=== PATIENT | female | born 1965 | race Caucasian/White ===

== ENCOUNTER 2017-04-22 02:38 | Emergency (ER) | payer MEDICARE, MEDICAID ==
[~2017-04-22 02:38] MED LIST: ADDE20XR PO; DARU600 PO; EPZITAB4 PO; KLON2TAB PO; RITO100 PO; SERO100T PO; TRAM50 PO
[2017-04-22] MEDS ORDERED: SERO50TA PO (02:51)
[2017-04-22] MEDS ORDERED: CLON2TAB PO (02:51)
[2017-04-22 02:53] VITALS: BP 128/76; PULSE 99; RESP 19; TEMP 97.6; O2SAT 100
--- NOTE | 2017-04-22 03:11 | PD ---
HPI Chief Complaint: Psychiatric Symptoms Time Seen by Provider: 02:47 Travel History International Travel<30 days: No Contact w/Intl Traveler<30days: No Traveled to known affect area: No History of Present Illness HPI 52-year-old white female presents to emergency department requesting psychological evaluation for mental breakdown. Patient has a history of anxiety and is a patient of Dr. Anne. She states that she had an argument with another person in the apartment complex today. She states that she felt uncomfortable and left. She is feeling dehydrated and feels that she needs to have something to drink. She has some mild lower back pain. She denies any suicidal or homicidal ideation. She does not want to talk about the surrounding events. She states that she has not taken her medications recently. She states that she is weaning herself off her medicines because she does not like to take medications. She denies any toxic ingestions. No trauma. She denies any drugs. PFSH Past Medical History Anemia: Yes Arthritis: Yes Autoimmune Disease: Yes (HIV+) Blood Disorders: No Anxiety: Yes Cancer: No High Cholesterol: Yes Chest Pain: No Cerebrovascular Accident: No Diminished Hearing: No Endocrine: No Gastrointestinal Disorders: No Genitourinary: No Headaches: Yes Hepatitis: Yes (HEP C) Hypertension: Yes Implanted Vascular Access Dvce: Yes Musculoskeletal: Yes (CHRONIC NECK,LBP,R.ANKLE,L. ELBOWPAIN) Neurologic: Yes Psychiatric: Yes (SCHIZOPHRENIA) Reproductive: No Respiratory: No Migraines: Yes (SOMETIMES) Myocardial Infarction: No ?: Unknown Past Surgical History Body Medical Devices: PLATE IN RIGHT ANKLE Hysterectomy: Yes Social History Alcohol Use: No Tobacco Use: No Substance Use: No Allergies-Medications (Allergen,Severity, Reaction): Coded Allergies: No Known Allergies (Verified , 06/23/15) Reported Meds & Prescriptions Reported Meds & Active Scripts Active Reported Seroquel (Quetiapine Fumarate) 50 Mg Tab 50 Mg PO HS Clonazepam 2 Mg Tab 2 Mg PO BID Review of Systems General / Constitutional: No: Fever Eyes: No: Visual changes HENT: No: Headaches Cardiovascular: No: Chest Pain or Discomfort Respiratory: No: Shortness of Breath Gastrointestinal: No: Abdominal Pain Genitourinary: No: Dysuria Musculoskeletal: No: Pain Skin: No Rash Neurologic: No: Weakness Psychiatric: Positive: Anxiety, Mood Disorder, No: Depression, Suicidal Ideations, Disorder of Thought, Substance Abuse, Homicidal Ideation Endocrine: No: Polydipsia Hematologic/Lymphatic: No: Easy Bruising Physical Exam Narrative GENERAL: Well-nourished, well-developed patient. Patient is somewhat anxious. Patient claims that her dog that is attending her is her service dog for her anxiety. SKIN: Warm and dry. HEAD: Normocephalic and atraumatic. EYES: No scleral icterus. No injection or drainage. ENT: No nasal drainage noted. Mucous membranes pink. Airway patent. NECK: Supple, trachea midline. Moves head freely without obvious discomfort. CARDIOVASCULAR: Regular rate and rhythm without murmurs, gallops, or rubs. RESPIRATORY: Breath sounds equal bilaterally. No accessory muscle use. GASTROINTESTINAL: Abdomen soft, non-tender, nondistended. EXTREMITIES: No cyanosis or edema. BACK: Nontender without obvious deformity. No CVA tenderness. NEURO: Patient is alert and oriented. no sensorimotor deficits. Nonfocal. Normal speech. PSYCH: No delusions. No auditory or visual hallucinations. Data Data Last Documented VS Vital Signs Date Time Temp Pulse Resp B/P (MAP) Pulse Ox O2 Delivery O2 Flow Rate FiO2 04/22/17 05:27 98 18 154/91 (112) 98 Room Air 04/22/17 02:53 97.6 Orders Orders Complete Blood Count With Diff (04/22/17 02:49) Comprehensive Metabolic Panel (04/22/17 02:49) Psych Screen (04/22/17 02:49) Drug Screen, Random Urine (04/22/17 02:49) Alcohol (Ethanol) (04/22/17 02:49) Urinalysis - C+S If Indicated (04/22/17 03:31) Chest, Single Ap (04/22/17 03:31) Sodium Chlor 0.9% 1000 Ml Inj (Ns 1000 M (04/22/17 05:15) Lactic Acid (04/22/17 05:12) Blood Culture (04/22/17 06:30) Lorazepam Inj (Ativan Inj) (04/22/17 06:30) Complete Blood Count With Diff (04/22/17 06:57) Basic Metabolic Panel (Bmp) (04/22/17 06:57) Lactic Acid (04/22/17 06:57) Labs Laboratory Tests Test 04/22/17 03:00 04/22/17 03:50 04/22/17 05:15 White Blood Count 17.2 TH/MM3 Red Blood Count 4.46 MIL/MM3 Hemoglobin 16.1 GM/DL Hematocrit 45.2 % Mean Corpuscular Volume 101.3 FL Mean Corpuscular Hemoglobin 36.1 PG Mean Corpuscular Hemoglobin Concent 35.7 % Red Cell Distribution Width 12.1 % Platelet Count 302 TH/MM3 Mean Platelet Volume 8.6 FL Neutrophils (%) (Auto) 86.3 % Lymphocytes (%) (Auto) 4.3 % Monocytes (%) (Auto) 9.1 % Eosinophils (%) (Auto) 0.0 % Basophils (%) (Auto) 0.3 % Neutrophils # (Auto) 14.8 TH/MM3 Lymphocytes # (Auto) 0.7 TH/MM3 Monocytes # (Auto) 1.6 TH/MM3 Eosinophils # (Auto) 0.0 TH/MM3 Basophils # (Auto) 0.0 TH/MM3 CBC Comment DIFF FINAL Differential Comment Blood Urea Nitrogen 45 MG/DL Creatinine 1.84 MG/DL Random Glucose 141 MG/DL Total Protein 9.3 GM/DL Albumin 4.9 GM/DL Calcium Level 9.8 MG/DL Alkaline Phosphatase 67 U/L Aspartate Amino Transf (AST/SGOT) 53 U/L Alanine Aminotransferase (ALT/SGPT) 34 U/L Total Bilirubin 0.8 MG/DL Sodium Level 139 MEQ/L Potassium Level 4.5 MEQ/L Chloride Level 107 MEQ/L Carbon Dioxide Level 19.5 MEQ/L Anion Gap 13 MEQ/L Estimat Glomerular Filtration Rate 29 ML/MIN Ethyl Alcohol Level LESS THAN 3 MG/DL Urine Color YELLOW Urine Turbidity CLEAR Urine pH 6.0 Urine Specific [place] 1.023 Urine Protein 100 mg/dL Urine Glucose (UA) 70 mg/dL Urine Ketones 40 mg/dL Urine Occult Blood LARGE Urine Nitrite NEG Urine Bilirubin NEG Urine Urobilinogen LESS THAN 2.0 MG/DL Urine Leukocyte Esterase NEG Urine RBC 0-3 /hpf Urine WBC 3-5 /hpf Urine Squamous Epithelial Cells > 8 /hpf Urine Bacteria OCC /hpf Urine Hyaline Casts 0-2 /lpf Urine Granular Casts 0-2 /lpf Urine Coarse Granular Casts /lpf Urine White Blood Cell Casts 0-2 /lpf Microscopic Urinalysis Comment CULT NOT INDICATED Urine Opiates Screen NEG Urine Barbiturates Screen NEG Urine Amphetamines Screen NEG Urine Benzodiazepines Screen NEG Urine Cocaine Screen NEG Urine Cannabinoids Screen NEG Lactic Acid Level 1.9 mmol/L MDM Medical Decision Making Medical Screen Exam Complete: Yes Emergency Medical Condition: Yes Medical Record Reviewed: Yes Interpretation(s) CBC & BMP Diagram 04/22/17 03:00 Total Protein 9.3 H, Albumin 4.9, Calcium Level 9.8, Alkaline Phosphatase 67, Aspartate Amino Transf (AST/SGOT) 53 H, Alanine Aminotransferase (ALT/SGPT) 34, Total Bilirubin 0.8 Laboratory Tests Test 04/22/17 03:00 04/22/17 03:50 White Blood Count 17.2 TH/MM3 Red Blood Count 4.46 MIL/MM3 Hemoglobin 16.1 GM/DL Hematocrit 45.2 % Mean Corpuscular Volume 101.3 FL Mean Corpuscular Hemoglobin 36.1 PG Mean Corpuscular Hemoglobin Concent 35.7 % Red Cell Distribution Width 12.1 % Platelet Count 302 TH/MM3 Mean Platelet Volume 8.6 FL Neutrophils (%) (Auto) 86.3 % Lymphocytes (%) (Auto) 4.3 % Monocytes (%) (Auto) 9.1 % Eosinophils (%) (Auto) 0.0 % Basophils (%) (Auto) 0.3 % Neutrophils # (Auto) 14.8 TH/MM3 Lymphocytes # (Auto) 0.7 TH/MM3 Monocytes # (Auto) 1.6 TH/MM3 Eosinophils # (Auto) 0.0 TH/MM3 Basophils # (Auto) 0.0 TH/MM3 CBC Comment DIFF FINAL Differential Comment Blood Urea Nitrogen 45 MG/DL Creatinine 1.84 MG/DL Random Glucose 141 MG/DL Total Protein 9.3 GM/DL Albumin 4.9 GM/DL Calcium Level 9.8 MG/DL Alkaline Phosphatase 67 U/L Aspartate Amino Transf (AST/SGOT) 53 U/L Alanine Aminotransferase (ALT/SGPT) 34 U/L Total Bilirubin 0.8 MG/DL Sodium Level 139 MEQ/L Potassium Level 4.5 MEQ/L Chloride Level 107 MEQ/L Carbon Dioxide Level 19.5 MEQ/L Anion Gap 13 MEQ/L Estimat Glomerular Filtration Rate 29 ML/MIN Ethyl Alcohol Level LESS THAN 3 MG/DL Urine Color YELLOW Urine Turbidity CLEAR Urine pH 6.0 Urine Specific [place] 1.023 Urine Protein 100 mg/dL Urine Glucose (UA) 70 mg/dL Urine Ketones 40 mg/dL Urine Occult Blood LARGE Urine Nitrite NEG Urine Bilirubin NEG Urine Urobilinogen LESS THAN 2.0 MG/DL Urine Leukocyte Esterase NEG Urine RBC 0-3 /hpf Urine WBC 3-5 /hpf Urine Squamous Epithelial Cells > 8 /hpf Urine Bacteria OCC /hpf Urine Hyaline Casts 0-2 /lpf Urine Granular Casts 0-2 /lpf Urine Coarse Granular Casts /lpf Urine White Blood Cell Casts 0-2 /lpf Microscopic Urinalysis Comment CULT NOT INDICATED Urine Opiates Screen NEG Urine Barbiturates Screen NEG Urine Amphetamines Screen NEG Urine Benzodiazepines Screen NEG Urine Cocaine Screen NEG Urine Cannabinoids Screen NEG Differential Diagnosis MDM: High Differential diagnoses: Schizophrenia, schizoaffective disorder, bipolar, anxiety, depression, adjustment reaction, mood disorder NOS, ODD, depressive disorder NOS, dementia, dementia with agitation, psychosis NOS, substance induced mood disorder, DMDD, Asperger syndrome, infection,electrolyte abnormality, malingering. Narrative Course Mental health screening discussed with the patient. Psychiatric screen ordered. Patient is given a liter bolus of normal saline. Patient's laboratory tests have been reviewed. Patient appears to have chronic renal insufficiency which is mildly worsened. She has granular casts in her urine along with proteinuria. She has a somewhat decrease bicarbonate. We will check a venous lactate. Her anion gap is. Chest x-ray is clear. The case has been discussed with Dr. Magana who has asked to hold off on her admission and have her labs repeated. She states that if she still has a leukocytosis she would consider admitting the patient. She states that she does not feel comfortable admitting the patient solely on a single set of labs. Diagnosis Primary Impression: Medical clearance for psychiatric admission Juan Pack Apr 22, 2017 03:11
[2017-04-22 03:20] LABS: AUTOMATED NEUTROPHIL # 14.8 TH/MM3 (1.8-7.7); BASOPHIL % 0.3 % (0.0-2.0); HEMATOCRIT 45.2 % (35.0-46.0); HEMO FLAGS DIFF FINAL; LYMPH % 4.3 % (9.0-44.0); LYMPHOCYTE # 0.7 TH/MM3 (1.0-4.8); MEAN CELL VOLUME 101.3 FL (80.0-100.0); MEAN CORPUSCULAR HEMOGLOBIN 36.1 PG (27.0-34.0); MEAN CORPUSCULAR HGB CONC 35.7 % (32.0-36.0); MONO % 9.1 % (0.0-8.0); NEUT % 86.3 % (16.0-70.0); PLATELET COUNT 302 TH/MM3 (150-450); RED BLOOD COUNT 4.46 MIL/MM3 (4.00-5.30); RED CELL DISTRIBUTION WIDTH 12.1 % (11.6-17.2); WHITE BLOOD COUNT 17.2 TH/MM3 (4.0-11.0)
[2017-04-22 03:50] LABS: ALKALINE PHOSPHATASE 67 U/L (45-117); TOTAL BILIRUBIN ADULT 0.8 MG/DL (0.2-1.0)
[2017-04-22 04:06] LABS: BLOOD, URINE LARGE (NEG); GLUCOSE,URINE 70 mg/dL (NEG); KETONE, URINE 40 mg/dL (NEG); NITRITE,URINE NEG (NEG); URINE COLOR YELLOW (YELLW/STRAW)
[2017-04-22 04:06] LABS: ALT (GPT) 34 U/L (10-53); ANION GAP 13 MEQ/L (5-15); AST (GOT) 53 U/L (15-37); BICARBONATE 19.5 MEQ/L (21.0-32.0); BLOOD UREA NITROGEN 45 MG/DL (7-18); CHLORIDE 107 MEQ/L (98-107); GLOMERULAR FILTRATION RATE 29 ML/MIN (>89); SODIUM (NA) 139 MEQ/L (136-145)
[2017-04-22 04:08] LABS: ALCOHOL LESS THAN 3 MG/DL (0-5); POTASSIUM 4.5 MEQ/L (3.5-5.1)
[2017-04-22 04:42] LABS: BACTERIA, URINE OCC /hpf; GRANULAR CAST, URINE 0-2 /lpf; HYALINE CAST, URINE 0-2 /lpf (RARE); RBC, URINE 0-3 /hpf (0-3); SQUAMOUS EPITHELIAL CELL URINE > 8 /hpf (0-5); WHITE BLOOD CELL CAST, URINE 0-2 /lpf
[2017-04-22 04:43] LABS: COMMENT (UR) CULT NOT INDICATED; CULTURE IF INDICATED CULT NOT INDICATED
[2017-04-22] MEDS ORDERED: SODIUM CHLOR 0.9% 1000 ML INJ 1,000 ML IV ONE (05:15)
[2017-04-22 05:27] VITALS: BP 154/91; PULSE 98; RESP 18; O2SAT 98
--- NOTE | 2017-04-22 05:51 | RADRPT ---
EXAM DATE/TIME: 04/22/2017 03:36 [facility] COMPARISON: CHEST SINGLE AP, October 19, 2013, 15:19. INDICATIONS : Anxiety. Cough. MEDICAL HISTORY : None. SURGICAL HISTORY : None. ENCOUNTER: Initial ACUITY: 1 day PAIN SCORE: 0/10 LOCATION: Bilateral chest FINDINGS: A single view of the chest demonstrates the lungs to be symmetrically aerated without evidence of mas s, infiltrate or effusion. No evidence pneumothorax. The cardiomediastinal contours are unremarkabl e. Osseous structures are intact. CONCLUSION: The lungs are clear. Jose Daniel Martinez MD on April 22, 2017 at 5:49 Board Certified Radiologist. This report was verified electronically.
[2017-04-22] MEDS ORDERED: LORazepam 2 MG/ML VIAL IV PUSH ONE (06:30)
[2017-04-22 07:32] LABS: AUTOMATED NEUTROPHIL # 12.2 TH/MM3 (1.8-7.7); BASOPHIL # 0.1 TH/MM3 (0-0.2); BASOPHIL % 0.5 % (0.0-2.0); HEMATOCRIT 38.6 % (35.0-46.0); LYMPH % 8.4 % (9.0-44.0); LYMPHOCYTE # 1.3 TH/MM3 (1.0-4.8); MEAN CELL VOLUME 100.4 FL (80.0-100.0); MEAN CORPUSCULAR HEMOGLOBIN 35.9 PG (27.0-34.0); MEAN CORPUSCULAR HGB CONC 35.7 % (32.0-36.0); MONO % 13.1 % (0.0-8.0); PLATELET COUNT 221 TH/MM3 (150-450); RED BLOOD COUNT 3.84 MIL/MM3 (4.00-5.30); WHITE BLOOD COUNT 15.6 TH/MM3 (4.0-11.0)
[2017-04-22 07:34] LABS: HEMO FLAGS AUTO DIFF
[2017-04-22 08:13] LABS: BICARBONATE 20.2 MEQ/L (21.0-32.0); POTASSIUM 3.5 MEQ/L (3.5-5.1)
[2017-04-22 08:34] LABS: PLATELET ESTIMATE SMEAR NORMAL (NORMAL); PLATELET MORPHOLOGY NORMAL (NORMAL); SCAN/DIFF AUTO DIFF CONFIRMED
--- NOTE | 2017-04-22 09:01 | PD ---
Physical Exam Date Seen by Provider: Apr 22, 2017 Time Seen by Provider: 09:07 Narrative 52-year-old female patient presents emergency department for evaluation after having a "mental breakdown". Patient was signed out to me by previous provider. Initial labs showed leukocytosis that was nonspecific, chest x-ray clear and urine did not indicate a urinary tract infection. Patient was afebrile. She was complaining of feeling dehydrated and weak however had no other physiological complaints outside of psychiatric complaints. Patient is HIV positive and has not taken her medication recently. Data Data Last Documented VS Vital Signs Date Time Temp Pulse Resp B/P (MAP) Pulse Ox O2 Delivery O2 Flow Rate FiO2 04/22/17 05:27 98 18 154/91 (112) 98 Room Air 04/22/17 02:53 97.6 Orders Orders Complete Blood Count With Diff (04/22/17 02:49) Comprehensive Metabolic Panel (04/22/17 02:49) Psych Screen (04/22/17 02:49) Drug Screen, Random Urine (04/22/17 02:49) Alcohol (Ethanol) (04/22/17 02:49) Urinalysis - C+S If Indicated (04/22/17 03:31) Chest, Single Ap (04/22/17 03:31) Sodium Chlor 0.9% 1000 Ml Inj (Ns 1000 M (04/22/17 05:15) Lactic Acid (04/22/17 05:12) Blood Culture (04/22/17 06:30) Lorazepam Inj (Ativan Inj) (04/22/17 06:30) Complete Blood Count With Diff (04/22/17 06:57) Basic Metabolic Panel (Bmp) (04/22/17 06:57) Lactic Acid (04/22/17 06:57) Admit Order (Ed Use Only) (04/22/17 09:02) Labs Laboratory Tests Test 04/22/17 03:00 04/22/17 03:50 04/22/17 05:15 04/22/17 07:10 White Blood Count 17.2 TH/MM3 15.6 TH/MM3 Red Blood Count 4.46 MIL/MM3 3.84 MIL/MM3 Hemoglobin 16.1 GM/DL 13.8 GM/DL Hematocrit 45.2 % 38.6 % Mean Corpuscular Volume 101.3 FL 100.4 FL Mean Corpuscular Hemoglobin 36.1 PG 35.9 PG Mean Corpuscular Hemoglobin Concent 35.7 % 35.7 % Red Cell Distribution Width 12.1 % 12.0 % Platelet Count 302 TH/MM3 221 TH/MM3 Mean Platelet Volume 8.6 FL 8.7 FL Neutrophils (%) (Auto) 86.3 % 78.0 % Lymphocytes (%) (Auto) 4.3 % 8.4 % Monocytes (%) (Auto) 9.1 % 13.1 % Eosinophils (%) (Auto) 0.0 % 0.0 % Basophils (%) (Auto) 0.3 % 0.5 % Neutrophils # (Auto) 14.8 TH/MM3 12.2 TH/MM3 Lymphocytes # (Auto) 0.7 TH/MM3 1.3 TH/MM3 Monocytes # (Auto) 1.6 TH/MM3 2.0 TH/MM3 Eosinophils # (Auto) 0.0 TH/MM3 0.0 TH/MM3 Basophils # (Auto) 0.0 TH/MM3 0.1 TH/MM3 CBC Comment DIFF FINAL AUTO DIFF Differential Comment AUTO DIFF CONFIRMED Blood Urea Nitrogen 45 MG/DL 35 MG/DL Creatinine 1.84 MG/DL 1.33 MG/DL Random Glucose 141 MG/DL 103 MG/DL Total Protein 9.3 GM/DL Albumin 4.9 GM/DL Calcium Level 9.8 MG/DL 8.4 MG/DL Alkaline Phosphatase 67 U/L Aspartate Amino Transf (AST/SGOT) 53 U/L Alanine Aminotransferase (ALT/SGPT) 34 U/L Total Bilirubin 0.8 MG/DL Sodium Level 139 MEQ/L 140 MEQ/L Potassium Level 4.5 MEQ/L 3.5 MEQ/L Chloride Level 107 MEQ/L 110 MEQ/L Carbon Dioxide Level 19.5 MEQ/L 20.2 MEQ/L Anion Gap 13 MEQ/L 10 MEQ/L Estimat Glomerular Filtration Rate 29 ML/MIN 42 ML/MIN Ethyl Alcohol Level LESS THAN 3 MG/DL Urine Color YELLOW Urine Turbidity CLEAR Urine pH 6.0 Urine Specific [place] 1.023 Urine Protein 100 mg/dL Urine Glucose (UA) 70 mg/dL Urine Ketones 40 mg/dL Urine Occult Blood LARGE Urine Nitrite NEG Urine Bilirubin NEG Urine Urobilinogen LESS THAN 2.0 MG/DL Urine Leukocyte Esterase NEG Urine RBC 0-3 /hpf Urine WBC 3-5 /hpf Urine Squamous Epithelial Cells > 8 /hpf Urine Bacteria OCC /hpf Urine Hyaline Casts 0-2 /lpf Urine Granular Casts 0-2 /lpf Urine Coarse Granular Casts /lpf Urine White Blood Cell Casts 0-2 /lpf Microscopic Urinalysis Comment CULT NOT INDICATED Urine Opiates Screen NEG Urine Barbiturates Screen NEG Urine Amphetamines Screen NEG Urine Benzodiazepines Screen NEG Urine Cocaine Screen NEG Urine Cannabinoids Screen NEG Lactic Acid Level 1.9 mmol/L 1.2 mmol/L Platelet Estimate NORMAL Platelet Morphology Comment NORMAL MDM Supervised Visit with JHOAN: Yes Differential Diagnosis Differential diagnoses include but not limited to nonspecific leukocytosis, sepsis, noncompliance with HAART regimen, psych clearance Narrative Course 52-year-old female presented to the emergency department for evaluation of a mental breakdown and initial labs show leukocytosis. Patient is HIV positive and has been noncompliant with her HAART regimen. She has been off her medication for several months. Although the patient is afebrile the leukocytosis is concerning based on her medical history. Another set of labs were obtained which confirmed leukocytosis. Residents were paged for admission. Dr Cobos and Dr Arias came and evaluated patient and stated the patient was having acute psychosis while they were doing their evaluation. Patient was having hallucinations and delusions that somebody was in the room talking on cell phone. Recommended that the patient be admitted to medical psychiatric unit. Psychiatry is paged for admission. Dr. Cummins called back and accepted admission. Patient will be admitted to medical psychiatric unit. Laboratory Tests Test 04/22/17 03:00 04/22/17 03:50 04/22/17 05:15 04/22/17 07:10 White Blood Count 17.2 TH/MM3 15.6 TH/MM3 Red Blood Count 4.46 MIL/MM3 3.84 MIL/MM3 Hemoglobin 16.1 GM/DL 13.8 GM/DL Hematocrit 45.2 % 38.6 % Mean Corpuscular Volume 101.3 FL 100.4 FL Mean Corpuscular Hemoglobin 36.1 PG 35.9 PG Mean Corpuscular Hemoglobin Concent 35.7 % 35.7 % Red Cell Distribution Width 12.1 % 12.0 % Platelet Count 302 TH/MM3 221 TH/MM3 Mean Platelet Volume 8.6 FL 8.7 FL Neutrophils (%) (Auto) 86.3 % 78.0 % Lymphocytes (%) (Auto) 4.3 % 8.4 % Monocytes (%) (Auto) 9.1 % 13.1 % Eosinophils (%) (Auto) 0.0 % 0.0 % Basophils (%) (Auto) 0.3 % 0.5 % Neutrophils # (Auto) 14.8 TH/MM3 12.2 TH/MM3 Lymphocytes # (Auto) 0.7 TH/MM3 1.3 TH/MM3 Monocytes # (Auto) 1.6 TH/MM3 2.0 TH/MM3 Eosinophils # (Auto) 0.0 TH/MM3 0.0 TH/MM3 Basophils # (Auto) 0.0 TH/MM3 0.1 TH/MM3 CBC Comment DIFF FINAL AUTO DIFF Differential Comment AUTO DIFF CONFIRMED Blood Urea Nitrogen 45 MG/DL 35 MG/DL Creatinine 1.84 MG/DL 1.33 MG/DL Random Glucose 141 MG/DL 103 MG/DL Total Protein 9.3 GM/DL Albumin 4.9 GM/DL Calcium Level 9.8 MG/DL 8.4 MG/DL Alkaline Phosphatase 67 U/L Aspartate Amino Transf (AST/SGOT) 53 U/L Alanine Aminotransferase (ALT/SGPT) 34 U/L Total Bilirubin 0.8 MG/DL Sodium Level 139 MEQ/L 140 MEQ/L Potassium Level 4.5 MEQ/L 3.5 MEQ/L Chloride Level 107 MEQ/L 110 MEQ/L Carbon Dioxide Level 19.5 MEQ/L 20.2 MEQ/L Anion Gap 13 MEQ/L 10 MEQ/L Estimat Glomerular Filtration Rate 29 ML/MIN 42 ML/MIN Ethyl Alcohol Level LESS THAN 3 MG/DL Urine Color YELLOW Urine Turbidity CLEAR Urine pH 6.0 Urine Specific [place] 1.023 Urine Protein 100 mg/dL Urine Glucose (UA) 70 mg/dL Urine Ketones 40 mg/dL Urine Occult Blood LARGE Urine Nitrite NEG Urine Bilirubin NEG Urine Urobilinogen LESS THAN 2.0 MG/DL Urine Leukocyte Esterase NEG Urine RBC 0-3 /hpf Urine WBC 3-5 /hpf Urine Squamous Epithelial Cells > 8 /hpf Urine Bacteria OCC /hpf Urine Hyaline Casts 0-2 /lpf Urine Granular Casts 0-2 /lpf Urine Coarse Granular Casts /lpf Urine White Blood Cell Casts 0-2 /lpf Microscopic Urinalysis Comment CULT NOT INDICATED Urine Opiates Screen NEG Urine Barbiturates Screen NEG Urine Amphetamines Screen NEG Urine Benzodiazepines Screen NEG Urine Cocaine Screen NEG Urine Cannabinoids Screen NEG Lactic Acid Level 1.9 mmol/L 1.2 mmol/L Platelet Estimate NORMAL Platelet Morphology Comment NORMAL Diagnosis Primary Impression: Medical clearance for psychiatric admission Additional Impressions: Leukocytosis Qualified Codes: D72.829 - Elevated white blood cell count, unspecified HIV disease Shasta Walker Apr 22, 2017 09:01
--- NOTE | 2017-04-22 10:24 | PD ---
History of Present Illness Chief Complaint: Psychiatric Symptoms Time Seen by Provider: 09:45 Travel History International Travel<30 Days: No Contact w/Intl Traveler<30days: No Known affected area: No Legal Status Legal Status: Voluntary History of Present Illness: History of Present Illness HPI 52-year-old white female with reported history of anxiety disorder as well as multiple medical problems including HIV, Hep. C, who presents to emergency department on a voluntary basis requesting psychological evaluation for mental breakdown. She reports that she was having some problems with her neighbor and that she decided to leave her apartment "a couple of days ago" accompanied by her dog. She has also stopped taking all her medications including Klonopin, Seroquel and Adderall. She sates she last took them " a few days ago" but is unsure of the exact dates. Her toxicology is negative for any substances including benzos as well as amphetamines. Patient is seen with QUIANA Dent. She is alert, not fully oriented to the date, knows she is in the hospital. The patient does not appear internally stimulated.She does believe that her service dog can " apple picking supervisor spiritual forces". She is not manic. Reports that she has not slept in several days and has been on the streets. Not suicdal or homicidal. Poor judgement and not caring for herself. She reports that she feels anxious. PFSH Past Medical History Anemia: Yes Arthritis: Yes Autoimmune Disease: Yes (HIV+) Blood Disorders: No Anxiety: Yes High Cholesterol: Yes Diminished Hearing: No Headaches: Yes Hepatitis: Yes (HEP C+, PT STATES SHE HAS BEEN CURED) Hypertension: Yes Implanted Vascular Access Dvce: Yes Musculoskeletal: Yes (CHRONIC NECK,LBP,R.ANKLE,L. ELBOWPAIN) Neurologic: Yes Migraines: Yes (SOMETIMES) ?: Unknown Past Surgical History Body Medical Devices: PLATE IN RIGHT ANKLE Hysterectomy: Yes Psychiatric History Psychiatric History Hx Psychiatric Treatment: none. Lilian of Dr. grant machado History of Inpatient Treatment: No Guns or firearms in home: No Social History Hx Alcohol Use: No Hx Tobacco Use: No Hx Substance Use: No Substance Use Type: Nicotine/Cigarettes Other Substances Used: none only rx from the dr Mott of Substance Use Treatment: No Family Psychiatric History None reported. Allergies-Medications (Allergen,Severity, Reaction): Coded Allergies: No Known Allergies (Verified Allergy, Unknown, 04/22/17) Reported Meds & Prescriptions Reported Meds & Active Scripts Active Reported Seroquel (Quetiapine Fumarate) 50 Mg Tab 50 Mg PO HS Clonazepam 2 Mg Tab 2 Mg PO BID Mental Status Examination Appearance: Appropriate Consciousness: Alert, Somnolent Orientation: Person, Place, Situation Motor Activity: Normal gait Language: Adequate Fund of Knowledge: Adequate Attention and Concentration: Easily Distracted Memory: Impaired Mood: Anxious Affect: Blunt Thought Process & Associations: Loose associations Thought Content: Appropriate Hallucination Type: Visual (reported seeing a woman who was the devil) Delusion Type: None Suicidal Ideation: No Suicidal Plan: No Suicidal Intention: No Homicidal Ideation: No Homicidal Plan: No Homicidal Intention: No Insight: Poor Judgment: Impulsive MDM Medical Decision Making Medical Record Reviewed: Yes Assessment/Plan 52-year-old white female with reported history of anxiety disorder as well as multiple medical problems including HIV, Hep. C, who presents to emergency department on a voluntary basis requesting psychological evaluation for mental breakdown. She reports that she was having some problems with her neighbor and that she decided to leave her apartment "a couple of days ago" accompanied by her dog. She has also stopped taking all her medications including Klonopin, Seroquel and Adderall. She sates she last took them " a few days ago" but is unsure of the exact dates. Her toxicology is negative for any substances including benzos as well as amphetamines. The patient will be admitted to psychiatry for further evaluation, stabilization and to restart her psychiatric medications. She may be experiencing benzo withdrawal so she will be placed under a CIWA. Will obtain hospitalist consult to mange her multiple medical issues. Orders Orders Complete Blood Count With Diff (04/22/17 02:49) Comprehensive Metabolic Panel (04/22/17 02:49) Psych Screen (04/22/17 02:49) Drug Screen, Random Urine (04/22/17 02:49) Alcohol (Ethanol) (04/22/17 02:49) Urinalysis - C+S If Indicated (04/22/17 03:31) Chest, Single Ap (04/22/17 03:31) Sodium Chlor 0.9% 1000 Ml Inj (Ns 1000 M (04/22/17 05:15) Lactic Acid (04/22/17 05:12) Blood Culture (04/22/17 06:30) Lorazepam Inj (Ativan Inj) (04/22/17 06:30) Complete Blood Count With Diff (04/22/17 06:57) Basic Metabolic Panel (Bmp) (04/22/17 06:57) Lactic Acid (04/22/17 06:57) Admit Order (Ed Use Only) (04/22/17 09:02) Results Vital Signs Date Time Temp Pulse Resp B/P (MAP) Pulse Ox O2 Delivery O2 Flow Rate FiO2 04/22/17 05:27 98 18 154/91 (112) 98 Room Air 04/22/17 02:53 97.6 99 19 128/76 (93) 100 Room Air Laboratory Tests Test 04/22/17 03:00 04/22/17 03:50 04/22/17 05:15 04/22/17 07:10 White Blood Count 17.2 15.6 Red Blood Count 4.46 3.84 Hemoglobin 16.1 13.8 Hematocrit 45.2 38.6 Mean Corpuscular Volume 101.3 100.4 Mean Corpuscular Hemoglobin 36.1 35.9 Mean Corpuscular Hemoglobin Concent 35.7 35.7 Red Cell Distribution Width 12.1 12.0 Platelet Count 302 221 Mean Platelet Volume 8.6 8.7 Neutrophils (%) (Auto) 86.3 78.0 Lymphocytes (%) (Auto) 4.3 8.4 Monocytes (%) (Auto) 9.1 13.1 Eosinophils (%) (Auto) 0.0 0.0 Basophils (%) (Auto) 0.3 0.5 Neutrophils # (Auto) 14.8 12.2 Lymphocytes # (Auto) 0.7 1.3 Monocytes # (Auto) 1.6 2.0 Eosinophils # (Auto) 0.0 0.0 Basophils # (Auto) 0.0 0.1 CBC Comment DIFF FINAL AUTO DIFF Differential Comment AUTO DIFF CONFIRMED Blood Urea Nitrogen 45 35 Creatinine 1.84 1.33 Random Glucose 141 103 Total Protein 9.3 Albumin 4.9 Calcium Level 9.8 8.4 Alkaline Phosphatase 67 Aspartate Amino Transf (AST/SGOT) 53 Alanine Aminotransferase (ALT/SGPT) 34 Total Bilirubin 0.8 Sodium Level 139 140 Potassium Level 4.5 3.5 Chloride Level 107 110 Carbon Dioxide Level 19.5 20.2 Anion Gap 13 10 Estimat Glomerular Filtration Rate 29 42 Ethyl Alcohol Level LESS THAN 3 Urine Color YELLOW Urine Turbidity CLEAR Urine pH 6.0 Urine Specific [place] 1.023 Urine Protein 100 Urine Glucose (UA) 70 Urine Ketones 40 Urine Occult Blood LARGE Urine Nitrite NEG Urine Bilirubin NEG Urine Urobilinogen LESS THAN 2.0 Urine Leukocyte Esterase NEG Urine RBC 0-3 Urine WBC 3-5 Urine Squamous Epithelial Cells > 8 Urine Bacteria OCC Urine Hyaline Casts 0-2 Urine Granular Casts 0-2 Urine Coarse Granular Casts Urine White Blood Cell Casts 0-2 Microscopic Urinalysis Comment CULT NOT INDICATED Urine Opiates Screen NEG Urine Barbiturates Screen NEG Urine Amphetamines Screen NEG Urine Benzodiazepines Screen NEG Urine Cocaine Screen NEG Urine Cannabinoids Screen NEG Lactic Acid Level 1.9 1.2 Platelet Estimate NORMAL Platelet Morphology Comment NORMAL Date/Time Source Procedure Growth Status 04/22/17 06:40 Blood Peripheral Aerobic Blood Culture Pending Received 04/22/17 06:40 Blood Peripheral Anaerobic Blood Culture Pending Received Diagnosis Primary Impression: Generalized anxiety disorder Additional Impressions: Leukocytosis HIV disease Admitting Information Admitting Physician Requests: Admit (Dr. Cummins) Problem Qualifiers Additional Impressions: Leukocytosis Qualified Codes: D72.829 - Elevated white blood cell count, unspecified Graciela Mckeon [facility] Apr 22, 2017 10:24
[2017-04-22] MEDS ORDERED: MAGNESIUM HYDROXIDE SUSP 30 ML CUP PO PRN (11:15)
[2017-04-22] MEDS ORDERED: ALUMINUM/MAGNESIUM/SIMETH 30 ML CUP PO PRN (11:15)
[2017-04-22] MEDS ORDERED: ACETAMINOPHEN 325 MG TAB PO PRN (11:15)
--- NOTE | 2017-04-23 10:07 | PD.CONS ---
[facility] By Primary Care Physician No Primary Care Physician Diagnoses: Past Family Social History Allergies: Coded Allergies: No Known Allergies (Verified Allergy, Unknown, 04/22/17) Past Medical History Anemia Arthritis HIV Anxiety Dyslipidemia Hepatitis C Hypertension Chronic neck and low back pain Migraines Past Surgical History Right ankle surgery Reported Medications Seroquel (Quetiapine Fumarate) 50 Mg Tab 50 Mg PO HS Clonazepam 2 Mg Tab 2 Mg PO BID Physical Exam Vital Signs Vital Signs Date Time Temp Pulse Resp B/P (MAP) Pulse Ox O2 Delivery O2 Flow Rate FiO2 04/22/17 12:45 Physical Exam GENERAL: This is a well-nourished, well-developed patient, in no apparent distress. SKIN: No rashes, ecchymoses or lesions. Cool and dry. HEAD: Atraumatic. Normocephalic. No temporal or scalp tenderness. EYES: Pupils equal round and reactive. Extraocular motions intact. No scleral icterus. No injection or drainage. ENT: Nose without bleeding, purulent drainage or septal hematoma. Throat without erythema, tonsillar hypertrophy or exudate. Uvula midline. Airway patent. NECK: Trachea midline. No JVD or lymphadenopathy. Supple, nontender, no meningeal signs. CARDIOVASCULAR: Regular rate and rhythm without murmurs, gallops, or rubs. RESPIRATORY: Clear to auscultation. Breath sounds equal bilaterally. No wheezes , rales, or rhonchi. GASTROINTESTINAL: Abdomen soft, non-tender, nondistended. No hepato-splenomegaly , or palpable masses. No guarding. MUSCULOSKELETAL: Extremities without clubbing, cyanosis, or edema. No joint tenderness, effusion, or edema noted. No calf tenderness. Negative Homans sign bilaterally. NEUROLOGICAL: Awake and alert. Cranial nerves II through XII intact. Motor and sensory grossly within normal limits. Five out of 5 muscle strength in all muscle groups. Normal speech. Laboratory Laboratory Tests Test 04/23/17 09:32 Date/Time Source Procedure Growth Status 04/22/17 06:40 Blood Peripheral Aerobic Blood Culture Pending Received 04/22/17 06:40 Blood Peripheral Anaerobic Blood Culture Pending Received Result Diagram: 04/22/17 0710 04/22/17 0710 Darinel Wilson MD Apr 23, 2017 10:07
[2017-04-23 10:18] LABS: ANION GAP 7 MEQ/L (5-15); BICARBONATE 22.7 MEQ/L (21.0-32.0); BLOOD UREA NITROGEN 18 MG/DL (7-18); CHLORIDE 109 MEQ/L (98-107); GLOMERULAR FILTRATION RATE 56 ML/MIN (>89); POTASSIUM 3.3 MEQ/L (3.5-5.1); SODIUM (NA) 139 MEQ/L (136-145)
[2017-04-23 10:21] LABS: HEMOGLOBIN A1b 1.3 %; HEMOGLOBIN Ao 87.4 %; HEMOGLOBIN LA1C 1.8 %; HEMOGLOBIN P3 3.6 %
[2017-04-23 10:28] LABS: LDL CHOLESTEROL 143 MG/DL (0-99)
== END 2017-04-22 12:45 | disposition left against medical advice (07) ==
LOC: NEPD 02:38 → UNDOADMOB 09:06 → NEDA 09:06 → NEPD 12:45
DX: F41.9 Anxiety disorder, unspecified (principal); D72.829 Elevated white blood cell count, unspecified; E78.00 Pure hypercholesterolemia, unspecified; B19.20 Unspecified viral hepatitis C without hepatic coma; I10 Essential (primary) hypertension; Z21 Asymptomatic human immunodeficiency virus [HIV] infection status; Z91.19 Patient's noncompliance with other medical treatment and regimen; Z72.0 Tobacco use
CPT/HCPCS: 71010; 80053; 80307; 81001; 83605; 85025; 87040; 96361; 96374; 99285; J2060; J7030; 80048; 80061; 83036; 84443

== ENCOUNTER 2017-04-22 17:22 | Inpatient (IN) | payer OTHER, MEDICAID, MEDICARE ==
[~2017-04-22] VITALS: Ht 157.5 cm; Wt 55.0 kg
[~2017-04-22 17:22] MED LIST changes: +CLON2TAB PO; +SERO50TA PO
[2017-04-22 17:51] VITALS: BP 129/78; PULSE 74; RESP 18; TEMP 99.5; O2SAT 100
--- NOTE | 2017-04-22 19:26 | PD ---
HPI Chief Complaint: Psychiatric Symptoms Time Seen by Provider: 19:22 Travel History International Travel<30 days: No Contact w/Intl Traveler<30days: No Traveled to known affect area: No History of Present Illness HPI 52-year-old white female returns to the [facility] to be admitted to the psych department. The patient was seen earlier today and left AGAINST MEDICAL ADVICE. Patient now had left her service dog with a friend. She returns for readmission. Patient persists with feeling weak and dizzy. She states that she is somnolent and has not slept in several days. She once again denies any suicidal homicidal ideation. She states that she has problem concentrating and thinking. She alleges a nervous breakdown. According to the psych staff the patient ambulated freely. [facility] before [facility] down. The patient now states that she feels tired and has limited ability to answer questions due to her somnolent status. She denies any fever or chills. No nausea vomiting. No bowel pain or urinary symptoms. She denies any drugs. PFSH Past Medical History Anemia: Yes Arthritis: Yes Autoimmune Disease: Yes (HIV+) Blood Disorders: No Anxiety: Yes Cancer: No Chest Pain: No Cerebrovascular Accident: No Diminished Hearing: No Endocrine: No Gastrointestinal Disorders: No Genitourinary: No Headaches: Yes Hepatitis: Yes (HEP C+, PT STATES SHE HAS BEEN CURED) Hypertension: Yes Implanted Vascular Access Dvce: Yes Musculoskeletal: Yes (CHRONIC NECK,LBP,R.ANKLE,L. ELBOWPAIN) Neurologic: Yes Psychiatric: Yes (SCHIZOPHRENIA) Migraines: Yes (SOMETIMES) Myocardial Infarction: No Tetanus Vaccination: Unknown Influenza Vaccination: Yes ?: Not LMP: "years ago" Past Surgical History Body Medical Devices: PLATE IN RIGHT ANKLE Hysterectomy: Yes Social History Alcohol Use: No Tobacco Use: No Substance Use: No Allergies-Medications (Allergen,Severity, Reaction): Coded Allergies: No Known Allergies (Verified Allergy, Unknown, 04/22/17) Reported Meds & Prescriptions Reported Meds & Active Scripts Active Reported Seroquel (Quetiapine Fumarate) 50 Mg Tab 50 Mg PO HS Clonazepam 2 Mg Tab 2 Mg PO BID Review of Systems General / Constitutional: No: Fever Eyes: No: Visual changes HENT: No: Headaches Cardiovascular: No: Chest Pain or Discomfort Respiratory: No: Shortness of Breath Gastrointestinal: No: Abdominal Pain Genitourinary: No: Dysuria Musculoskeletal: No: Pain Skin: No Rash Neurologic: Positive: Dizziness, No: Weakness Psychiatric: Positive: Anxiety, Depression, Mood Disorder, No: Suicidal Ideations, Disorder of Thought, Substance Abuse, Homicidal Ideation Endocrine: No: Polydipsia Hematologic/Lymphatic: No: Easy Bruising Physical Exam Narrative GENERAL: Well-nourished, well-developed patient. SKIN: Warm and dry. HEAD: Normocephalic and atraumatic. EYES: No scleral icterus. No injection or drainage. ENT: No nasal drainage noted. Mucous membranes pink. Airway patent. NECK: Supple, trachea midline. Moves head freely without obvious discomfort. CARDIOVASCULAR: Regular rate and rhythm without murmurs, gallops, or rubs. RESPIRATORY: Breath sounds equal bilaterally. No accessory muscle use. GASTROINTESTINAL: Abdomen soft, non-tender, nondistended. EXTREMITIES: No cyanosis or edema. BACK: Nontender without obvious deformity. No CVA tenderness. NEURO: Patient is alert and oriented. no sensorimotor deficits. Nonfocal. Normal speech. PSYCH: No delusions. No auditory or visual hallucinations. Data Data Last Documented VS Vital Signs Date Time Temp Pulse Resp B/P (MAP) Pulse Ox O2 Delivery O2 Flow Rate FiO2 04/22/17 17:51 99.5 74 18 129/78 (95) 100 Orders Orders Complete Blood Count With Diff (04/22/17 19:21) Comprehensive Metabolic Panel (04/22/17 19:21) Psych Screen (04/22/17 19:21) Drug Screen, Random Urine (04/22/17 19:21) Alcohol (Ethanol) (04/22/17 19:21) Admit Order (Ed Use Only) (04/22/17 ) Admit To Inpatient Psych (04/22/17 ) Code Status (04/22/17 19:25) Vital Signs (Adult) [id number].[id number] (04/22/17 19:25) Activity Oob Ad Judi (04/22/17 19:25) Level Of Observation (Psych) (04/22/17 19:25) Aims-Abnormal Invol Move Scale ONCE (04/22/17 19:25) Diphenhydramine (Benadryl) (04/22/17 19:30) Acetaminophen (Tylenol) (04/22/17 19:30) Basic Metabolic Panel (Bmp) (04/23/17 06:00) Lipid Profile (04/23/17 06:00) Hemoglobin (Hgb) A1c (04/23/17 06:00) Consult Hospitalist (04/22/17 ) Electrocardiogram (04/23/17 ) Labs Laboratory Tests Test 04/22/17 18:00 04/22/17 19:30 Urine Opiates Screen NEG Urine Barbiturates Screen NEG Urine Amphetamines Screen NEG Urine Benzodiazepines Screen NEG Urine Cocaine Screen NEG Urine Cannabinoids Screen NEG White Blood Count 15.2 TH/MM3 Red Blood Count 3.69 MIL/MM3 Hemoglobin 12.8 GM/DL Hematocrit 37.5 % Mean Corpuscular Volume 101.6 FL Mean Corpuscular Hemoglobin 34.7 PG Mean Corpuscular Hemoglobin Concent 34.1 % Red Cell Distribution Width 11.9 % Platelet Count 257 TH/MM3 Mean Platelet Volume 7.9 FL Neutrophils (%) (Auto) 75.1 % Lymphocytes (%) (Auto) 11.3 % Monocytes (%) (Auto) 12.9 % Eosinophils (%) (Auto) 0.3 % Basophils (%) (Auto) 0.4 % Neutrophils # (Auto) 11.5 TH/MM3 Lymphocytes # (Auto) 1.7 TH/MM3 Monocytes # (Auto) 2.0 TH/MM3 Eosinophils # (Auto) 0.0 TH/MM3 Basophils # (Auto) 0.1 TH/MM3 CBC Comment DIFF FINAL Differential Comment Blood Urea Nitrogen 26 MG/DL Creatinine 1.28 MG/DL Random Glucose 105 MG/DL Total Protein 7.1 GM/DL Albumin 3.8 GM/DL Calcium Level 8.8 MG/DL Alkaline Phosphatase 51 U/L Aspartate Amino Transf (AST/SGOT) 66 U/L Alanine Aminotransferase (ALT/SGPT) 39 U/L Total Bilirubin 0.8 MG/DL Sodium Level 139 MEQ/L Potassium Level 3.6 MEQ/L Chloride Level 108 MEQ/L Carbon Dioxide Level 25.4 MEQ/L Anion Gap 6 MEQ/L Estimat Glomerular Filtration Rate 44 ML/MIN Ethyl Alcohol Level LESS THAN 3 MG/DL MDM Medical Decision Making Medical Screen Exam Complete: Yes Emergency Medical Condition: Yes Medical Record Reviewed: Yes Interpretation(s) CBC & BMP Diagram 04/22/17 19:30 Total Protein 7.1 #, Albumin 3.8 #, Calcium Level 8.8, Alkaline Phosphatase 51, Aspartate Amino Transf (AST/SGOT) 66 H, Alanine Aminotransferase (ALT/SGPT) 39, Total Bilirubin 0.8 Differential Diagnosis MDM: High Differential diagnoses: Schizophrenia, schizoaffective disorder, bipolar, anxiety, depression, adjustment reaction, mood disorder NOS, ODD, depressive disorder NOS, dementia, dementia with agitation, psychosis NOS, substance induced mood disorder, DMDD, Asperger syndrome, infection,electrolyte abnormality, malingering. Narrative Course Mental health screening discussed with the patient. Psychiatric screen ordered. I discussed with the psych nurse practitioner the patient's initial evaluation and her evaluation today. We have agreed to admit her to the psych department but we will repeat laboratory tests now prior to admission. Patient still has a leukocytosis. Etiology is unclear. I spoken with the psych nurse practitioner who ensures me that [facility] will reevaluate her as well as getting a ID consult. This is medical clearance for psychiatric admission, leukocytosis, HIV Diagnosis Primary Impression: Medical clearance for psychiatric admission Additional Impressions: Leukocytosis Qualified Codes: D72.829 - Elevated white blood cell count, unspecified HIV disease Admitting Information Admitting Physician Requests: Admit Condition: Stable Juan Pack Apr 22, 2017 19:26
[2017-04-22] MEDS ORDERED: diphenhydrAMINE HCL 50 MG CAP PO PRN (19:30)
[2017-04-22] MEDS ORDERED: ACETAMINOPHEN 325 MG TAB PO PRN (19:30)
[2017-04-22 19:54] LABS: AUTOMATED NEUTROPHIL # 11.5 TH/MM3 (1.8-7.7); BASOPHIL # 0.1 TH/MM3 (0-0.2); BASOPHIL % 0.4 % (0.0-2.0); EOSINOPHIL % 0.3 % (0.0-4.0); HEMATOCRIT 37.5 % (35.0-46.0); HEMO FLAGS DIFF FINAL; LYMPH % 11.3 % (9.0-44.0); LYMPHOCYTE # 1.7 TH/MM3 (1.0-4.8); MEAN CELL VOLUME 101.6 FL (80.0-100.0); MEAN CORPUSCULAR HEMOGLOBIN 34.7 PG (27.0-34.0); MEAN CORPUSCULAR HGB CONC 34.1 % (32.0-36.0); MONO % 12.9 % (0.0-8.0); NEUT % 75.1 % (16.0-70.0); PLATELET COUNT 257 TH/MM3 (150-450); RED BLOOD COUNT 3.69 MIL/MM3 (4.00-5.30); RED CELL DISTRIBUTION WIDTH 11.9 % (11.6-17.2); WHITE BLOOD COUNT 15.2 TH/MM3 (4.0-11.0)
[2017-04-22 20:07] LABS: ALCOHOL LESS THAN 3 MG/DL (0-5); ALKALINE PHOSPHATASE 51 U/L (45-117); ALT (GPT) 39 U/L (10-53); ANION GAP 6 MEQ/L (5-15); AST (GOT) 66 U/L (15-37); BICARBONATE 25.4 MEQ/L (21.0-32.0); BLOOD UREA NITROGEN 26 MG/DL (7-18); CHLORIDE 108 MEQ/L (98-107); GLOMERULAR FILTRATION RATE 44 ML/MIN (>89); POTASSIUM 3.6 MEQ/L (3.5-5.1); SODIUM (NA) 139 MEQ/L (136-145); TOTAL BILIRUBIN ADULT 0.8 MG/DL (0.2-1.0)
[2017-04-22] MEDS: QUEtiapine FUMARATE 25 MG TAB PO SCH (21:00)
[2017-04-22 22:44] VITALS: BP 130/72; PULSE 80; RESP 18; O2SAT 98
[2017-04-22 23:41] VITALS: BP 118/73; PULSE 77; RESP 18; TEMP 98.5; O2SAT 99
[2017-04-23 05:38] VITALS: BP 151/67; PULSE 76; RESP 18; TEMP 99.8; O2SAT 99
[2017-04-23 08:20] VITALS: BP 152/81; PULSE 79; RESP 16; O2SAT 98
[2017-04-23 08:36] LABS: BLOOD GAS BASE EXCESS -2.3 mmol/L (-2-2); BLOOD GAS HCO3 22 mmol/L (22-26); BLOOD GAS METHEMOGLOBIN 1.2 % (0-2); BLOOD GAS O2 HGB SATURATION 95 % (90-100); BLOOD GAS OXYGEN CONTENT 17.3 Vol % (12.0-20.0); BLOOD GAS PCO2 34 mmHg (38-42); BLOOD GAS PO2 89 mmHg (61-120); BLOOD GAS TOTAL HGB 12.9 G/DL (12.0-16.0); CRITICAL VALUE NO; DRAW SITE RT RADIAL; NUMBER OF ARTERIAL PUNCTURES 1; OXYGEN DEVICE RA; STAT YES; TEMP CORR TO 98.6; ULNAR PULSE PRESENT
--- NOTE | 2017-04-23 09:05 | RADRPT ---
EXAM DATE/TIME: 04/23/2017 08:33 [facility] COMPARISON: CT BRAIN W/O CONTRAST, February 05, 2010, 2:05. INDICATIONS : Altered mental status. Non responsive. CVA. RADIATION DOSE: 56.77 CTDIvol (mGy) MEDICAL HISTORY : Hepatitis C. Hypertension. HIV SURGICAL HISTORY : Tonsillectomy. Hysterectomy. ENCOUNTER: Initial ACUITY: 2 days PAIN SCALE: Non-responsive LOCATION: cranial TECHNIQUE: Multiple contiguous axial images were obtained of the head. Using automated exposure control and adj ustment of the mA and/or kV according to patient size, radiation dose was kept as low as reasonably a chievable to obtain optimal diagnostic quality images. DICOM format image data is available electro nically for review and comparison. FINDINGS: CEREBRUM: The ventricles are normal for age. No evidence of midline shift, mass lesion, hemorrhage or acute in farction. No extra-axial fluid collections are seen. POSTERIOR FOSSA: The cerebellum and brainstem are intact. The 4th ventricle is midline. The cerebellopontine angle i s unremarkable. EXTRACRANIAL: The visualized portion of the orbits is intact. SKULL: The calvaria is intact. No evidence of skull fracture. CONCLUSION: Normal noncontrast head CT. Renato Dailey MD on April 23, 2017 at 9:03 Board Certified Radiologist. This report was verified electronically.
--- NOTE | 2017-04-23 10:19 | HHI.HP ---
Provisional Diagnosis Admission Date Apr 22, 2017 at 19:31 [place] I. 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 Express and informed consent means consent voluntarily given in writing, by a competent person, after sufficient explanation and disclosure of the subject matter involved to enable the person to make a knowing and willful decision without any element of force, fraud, deceit, duress, or other form of constraint or coercion. This person is 18 years of age or older, is not now known to be incompetent to consent to treatment with a guardian advocate, and does not have a health care surrogate or proxy currently making medical treatment decisions. I have found this person to be one of the following: [] Competent to provide express and informed consent, as defined above, for voluntary admission to this facility and is competent to provide express and informed consent for treatment. He/she has the consistent capacity to make well reasoned, willful, and knowing decisions concerning his or her medical or mental health treatment. The person fully and consistently understands the purpose of the admission for examination/placement and is fully capable of personally exercising all rights assured under [place]xxx] Incompetent to provide express and informed consent to voluntary admission , and this is incompetent to provide express and informed consent to treatment. The person must be transferred to involuntary status and a petition for a guardian advocate filed with the Circuit Court. [] Refusing to provide express and informed consent to voluntary admission but is competent to provide express and informed consent for treatment. The person must be discharged or transferred to involuntary status. Form shall be completed within 24 hours of a person's arrival at the receiving facility and filed in the clinical record of each person: 1. Admitted on a voluntary basis 2. Permitted to provide express and informed consent to his/her own treatment 3. Allowed to transfer from involuntary to voluntary status 4. Prior to permitting a person to consent to his or her own treatment after having been previously found incompetent to consent to treatment. History of Present Illness Capacity: Lacks Capacity Psych Chief Complaint: patient unresponsive flaccid HPI Patient is a 52-year-old white female who initially came voluntary basis to the ED on 04/22/17 with visit [phone] it appears first anxious homeless and somewhat confused. She had a small dog with her. Though was consideration of admitting this patient. She claimed her dog was her service dog however those proved to be unfounded. Patient wished to be discharged AMA to be with her and well. At that time nurse practitioner assessed patient felt that she did not meet criteria for involuntary psychiatric hospitalization and she was loud to leave AMA. A few hours later it appears the police found lady wandering in the community somewhat confused. The [employer] confiscate the patient's pet dog [employer] in a snf. Patient is again screened in the ED and admitted on a voluntary basis to the unit last night. Patient was ambulatory though somewhat confused and anxious. It appears she did not receive any medication. However this morning prior to my arrival patient was found to be obtunded in her bed responding very infrequently only to deep pain stimulus. A halicat was called. Patient is seen by that team. Blood gases, labs, vital signs, overall within acceptable limits. Noncontrast CT of the skull was done which was also negative. At the present time patient remains flaccidly unresponsive. There are no signs of waxy flexibility or posturing noted. She is still significantly unresponsive to deep pain stimulus. It is 70 feel patient does not have capacity to remain on a voluntary basis on the psychiatric unit I will do a first opinion request second opinion I approached does not have capacity at this time thus I'll ask for healthcare surrogate and guardian advocate. Patient will be transferred to E for close observation and assessment. We' ll have the hospitalist some coarse continue the observation of her also. I question whether this may be some type of a fugue reaction or hysterical reaction. Leave further close observation and assessment in conjunction with the medical team Review of Systems ROS Limitations: Clinical Condition, Altered Mental Status Past Psych History Psychological trauma history Unknown at this time due to patient's altered mental status Violence risk - others (6 mos) Unknown at this time due to patient's altered mental status Violence risk - self (6 mos) Unknown at this time due to patient's altered mental status Substance Abuse History Drugs/Alcohol past 12 months Unknown at this time the urine toxicology is negative Past Family Social History Coded Allergies: No Known Allergies (Verified Allergy, Unknown, 04/22/17) Reported Medications Quetiapine (Seroquel) 50 Mg Tab, 50 MG PO HS, #30 TAB 0 Refills 04/22/17 Clonazepam (Clonazepam) 2 Mg Tab, 2 MG PO BID, #60 TAB 0 Refills 04/22/17 Current Medications Medications (Trade) Dose Ordered Sig/Blanca Route Start Time Stop Time Status Last Admin (Benadryl) 50 mg HS PRN PO 04/22/17 19:30 (Tylenol) 650 mg Q4H PRN PO 04/22/17 19:30 (SEROquel) 50 mg HS PO 04/22/17 21:00 Family Psych History . Patient has a history of psychiatric issues she has been seen by Dr. Lee in the community Social History It appears patient may be homeless, though she does have a pet dog Patient's Strengths (min. 2) Patient able to access health care Physical Exam Patient issued medically cleared 3-D. However her presentation today demanded a halicat she continues obtunded only intermittently responded to deep pain stimulus Vital Signs Vital Signs Date Time Temp Pulse Resp B/P (MAP) Pulse Ox O2 Delivery O2 Flow Rate FiO2 04/23/17 05:38 99.8 76 18 151/67 (95) 99 04/22/17 22:44 Room Air Lab Results Test 04/22/17 18:00 04/22/17 19:30 04/23/17 08:25 Urine Opiates Screen NEG Urine Barbiturates Screen NEG Urine Amphetamines Screen NEG Urine Benzodiazepines Screen NEG Urine Cocaine Screen NEG Urine Cannabinoids Screen NEG White Blood Count 15.2 TH/MM3 Red Blood Count 3.69 MIL/MM3 Hemoglobin 12.8 GM/DL Hematocrit 37.5 % Mean Corpuscular Volume 101.6 FL Mean Corpuscular Hemoglobin 34.7 PG Mean Corpuscular Hemoglobin Concent 34.1 % Red Cell Distribution Width 11.9 % Platelet Count 257 TH/MM3 Mean Platelet Volume 7.9 FL Neutrophils (%) (Auto) 75.1 % Lymphocytes (%) (Auto) 11.3 % Monocytes (%) (Auto) 12.9 % Eosinophils (%) (Auto) 0.3 % Basophils (%) (Auto) 0.4 % Neutrophils # (Auto) 11.5 TH/MM3 Lymphocytes # (Auto) 1.7 TH/MM3 Monocytes # (Auto) 2.0 TH/MM3 Eosinophils # (Auto) 0.0 TH/MM3 Basophils # (Auto) 0.1 TH/MM3 CBC Comment DIFF FINAL Differential Comment Blood Urea Nitrogen 26 MG/DL Creatinine 1.28 MG/DL Random Glucose 105 MG/DL Total Protein 7.1 GM/DL Albumin 3.8 GM/DL Calcium Level 8.8 MG/DL Alkaline Phosphatase 51 U/L Aspartate Amino Transf (AST/SGOT) 66 U/L Alanine Aminotransferase (ALT/SGPT) 39 U/L Total Bilirubin 0.8 MG/DL Sodium Level 139 MEQ/L Potassium Level 3.6 MEQ/L Chloride Level 108 MEQ/L Carbon Dioxide Level 25.4 MEQ/L Anion Gap 6 MEQ/L Estimat Glomerular Filtration Rate 44 ML/MIN Ethyl Alcohol Level LESS THAN 3 MG/DL Blood Gas Puncture Site RT RADIAL Blood Gas Patient Temperature 98.6 Blood Gas HCO3 22 mmol/L Blood Gas Base Excess -2.3 mmol/L Blood Gas Oxygen Saturation 95 % Arterial Blood pH 7.42 Arterial Blood Partial Pressure CO2 34 mmHg Arterial Blood Partial Pressure O2 89 mmHg Arterial Blood Oxygen Content 17.3 Vol % Arterial Blood Carboxyhemoglobin 1.0 % Arterial Blood Methemoglobin 1.2 % Blood Gas Hemoglobin 12.9 G/DL Oxygen Delivery Device RA Mental Status Examination Mental Status Exam Remarks Patient obtunded responding only intermittently to deep pain stimulus patient flaccid showing no waxy flexibility or posturing or abnormal motor movements Assessment & Plan Problem List: (1) Altered mental status ICD Codes: R41.82 - Altered mental status, unspecified (2) 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
--- NOTE | 2017-04-23 13:36 | PD.CONS ---
HPI Service [facility] Consult Requested By Dr. Cummins Reason for Consult Somnolence. Primary Care Physician No Primary Care Physician Diagnoses: History of Present Illness This is a 52-year-old female admitted to the psych department for suicidal and homicidal ideations. Presently, patient is nonverbal/refuses to communicate. Per history from the electronic medical chart, she has been complaining of weakness, dizziness, and has not been sleeping for the last few days. This morning, patient became somnolent and noncommunicative, refuses to talk but responsive and winces to mild noxious stimulus. CT scan of the head is unremarkable. No meaningful history can be taken from the patient. Per EMR, she denied fever, chills, nausea, vomiting, abdominal pain, urinary symptoms, or illicit drug use. Review of Systems ROS Limitations: Altered Mental Status, Unresponsive, Poor Historian Past Family Social History Allergies: Coded Allergies: No Known Allergies (Verified Allergy, Unknown, 04/22/17) Past Medical History per EMR Anemia HIV Hepatitis C Schizophrenia Migraines Past Surgical History Hysterectomy Right ankle surgery Reported Medications Seroquel (Quetiapine Fumarate) 50 Mg Tab 50 Mg PO HS Clonazepam 2 Mg Tab 2 Mg PO BID Family History Cannot be obtained due to patient's mental status Social History Cannot be obtained due to patient's mental status Physical Exam Vital Signs Vital Signs Date Time Temp Pulse Resp B/P (MAP) Pulse Ox O2 Delivery O2 Flow Rate FiO2 04/23/17 08:20 79 16 152/81 (104) 98 04/23/17 05:38 99.8 76 18 151/67 (95) 99 04/22/17 23:41 98.5 77 18 118/73 (88) 99 04/22/17 22:45 04/22/17 22:44 80 18 130/72 (91) 98 Room Air 04/22/17 17:51 99.5 74 18 129/78 (95) 100 Physical Exam Physical exam is limited due to patient's mental status/psychiatric condition Not in distress, calm Pupils equal reactive to light, 4 mm. Does not follow commands, keeps her eyes shut despite trying to open the manually Supple neck Regular rate and rhythm, no murmurs Clear breath sounds, poor effort Abdomen soft, nontender No edema Patient seems to be awake with eyes closed. She appears to be aware of her surroundings. Responds to mild noxious stimulus like sound and mild sternal rub. Patient seems to be feigning her somnolence. Hand drop test reveals patient is aware of her surroundings. Negative Babinski. Non - Flaccid extremities. Laboratory Laboratory Tests Test 04/22/17 18:00 04/22/17 19:30 04/23/17 08:25 Urine Opiates Screen NEG Urine Barbiturates Screen NEG Urine Amphetamines Screen NEG Urine Benzodiazepines Screen NEG Urine Cocaine Screen NEG Urine Cannabinoids Screen NEG White Blood Count 15.2 Red Blood Count 3.69 Hemoglobin 12.8 Hematocrit 37.5 Mean Corpuscular Volume 101.6 Mean Corpuscular Hemoglobin 34.7 Mean Corpuscular Hemoglobin Concent 34.1 Red Cell Distribution Width 11.9 Platelet Count 257 Mean Platelet Volume 7.9 Neutrophils (%) (Auto) 75.1 Lymphocytes (%) (Auto) 11.3 Monocytes (%) (Auto) 12.9 Eosinophils (%) (Auto) 0.3 Basophils (%) (Auto) 0.4 Neutrophils # (Auto) 11.5 Lymphocytes # (Auto) 1.7 Monocytes # (Auto) 2.0 Eosinophils # (Auto) 0.0 Basophils # (Auto) 0.1 CBC Comment DIFF FINAL Differential Comment Blood Urea Nitrogen 26 Creatinine 1.28 Random Glucose 105 Total Protein 7.1 Albumin 3.8 Calcium Level 8.8 Alkaline Phosphatase 51 Aspartate Amino Transf (AST/SGOT) 66 Alanine Aminotransferase (ALT/SGPT) 39 Total Bilirubin 0.8 Sodium Level 139 Potassium Level 3.6 Chloride Level 108 Carbon Dioxide Level 25.4 Anion Gap 6 Estimat Glomerular Filtration Rate 44 Ethyl Alcohol Level LESS THAN 3 Blood Gas Puncture Site RT RADIAL Blood Gas Patient Temperature 98.6 Blood Gas HCO3 22 Blood Gas Base Excess -2.3 Blood Gas Oxygen Saturation 95 Arterial Blood pH 7.42 Arterial Blood Partial Pressure CO2 34 Arterial Blood Partial Pressure O2 89 Arterial Blood Oxygen Content 17.3 Arterial Blood Carboxyhemoglobin 1.0 Arterial Blood Methemoglobin 1.2 Blood Gas Hemoglobin 12.9 Oxygen Delivery Device RA Result Diagram: 04/22/17192904/22/171929 Imaging Last Impressions Head CT 04/23/17 0000 Signed Impressions: Service Date/Time: Sunday, April 23, 2017 08:33 - CONCLUSION: Normal noncontrast head CT. Renato Dailey MD Assessment and Plan Problem List: (1) History of hepatitis C ICD Code: Z86.19 - Personal history of other infectious and parasitic diseases Status: Chronic (2) HIV disease ICD Code: B20 - Human immunodeficiency virus [HIV] disease Status: Chronic (3) Leukocytosis ICD Code: D72.829 - Elevated white blood cell count, unspecified Status: Acute (4) Altered mental status ICD Code: R41.82 - Altered mental status, unspecified Assessment and Plan This is a 52-year-old female with suicidal ideations, we were consulted for altered mental status and leukocytosis Altered mental status-likely psychiatric, <?> manuel catatonia. CT scan of the head reviewed, unremarkable. Check neurological status every 4 hours. No intervention for now. ABG is unremarkable. Urine tox screen negative HIV/Hepatitis C - patient has leukocytosis, follow-up as outpatient. AST is very mildly elevated. Leukocytosis-per previous documentation, no signs of infection, check urinalysis , may use straight catheter if patient remains somnolent/nonverbal. Recheck CBC. Doubt pneumonia, patient's respiratory status is stable, pulmonary exam is normal. If repeat CBC is positive, we will check chest x-ray. Chronic renal failure-creatinine 1.28, appears to be at baseline, recheck creatinine tomorrow. Mild AST elevation-recheck tomorrow DVT prophylaxis: Low risk. Thank you very much for this consultation Problem Qualifiers (1) Leukocytosis: Qualified Codes: D72.829 - Elevated white blood cell count, unspecified Darinel Wilson MD Apr 23, 2017 13:36
--- NOTE | 2017-04-23 17:10 | PD.CONS ---
History of Present Illness Service Infectious disease Consult Requested By Dr Chan Reason for Consult Evaluate patient with HIV not on treatment Primary Care Physician No Primary Care Physician Diagnoses: History of Present Illness Patient seen and examined. Records reviewed. Patient is a 52-year-old female, initially admitted in the psych unit because she was somewhat confused, and anxious. In the psych unit, patient was found unresponsive, and had workup done including ABG, CT of the head, and they were unremarkable. She was therefore transferred to the fourth floor for closer observation and assessment. There was history of HIV, and patient not on any medication. Infectious disease consultation has been requested to evaluate the patient. When I saw the patient she was walking in her room. She was very hesitant in answering my questions. She cannot tell me how long she has had HIV. She apparently used to follow with with an HIV provider, but could not remember the name. She stopped seeing her HIV provider, and she also used to be on HAART treatment but he stopped all of this medication. Patient states that she feels fine and she is all right. She stated that she got HIV from the . The last CD4 count that I see in [place] is from 2010, and it was 357. Review of Systems ROS Limitations: Clinical Condition, Altered Mental Status, Uncooperative, Poor Historian Past Family Social History Allergies: Coded Allergies: No Known Allergies (Verified Allergy, Unknown, 04/22/17) Past Medical History Anemia HIV Hepatitis C Schizophrenia Migraines Past Surgical History Hysterectomy Right ankle surgery Reported Medications Reported Meds & Active Scripts Active Reported Seroquel (Quetiapine Fumarate) 50 Mg Tab 50 Mg PO HS Clonazepam 2 Mg Tab 2 Mg PO BID Active Ordered Medications Current Medications Medications (Trade) Dose Ordered Sig/Blanca Route Start Time Stop Time Status Last Admin (Benadryl) 50 mg HS PRN PO 04/22/17 19:30 (Tylenol) 650 mg Q4H PRN PO 04/22/17 19:30 (SEROquel) 50 mg HS PO 04/22/17 21:00 Family History Unobtainable Social History Patient did not answer my questions when I ask about smoking, drinking, or drug use Physical Exam Vital Signs Vital Signs Date Time Temp Pulse Resp B/P (MAP) Pulse Ox O2 Delivery O2 Flow Rate FiO2 04/23/17 08:20 79 16 152/81 (104) 98 04/23/17 05:38 99.8 76 18 151/67 (95) 99 04/22/17 23:41 98.5 77 18 118/73 (88) 99 04/22/17 22:45 04/22/17 22:44 80 18 130/72 (91) 98 Room Air 04/22/17 17:51 99.5 74 18 129/78 (95) 100 Physical Exam GENERAL: Patient is a well-nourished, well-developed female, awake and alert , not in respiratory distress. AMbulating in her room. Looks at me in a very suspicious manner, and did not always answer my questions and allowed me to do limited PE SKIN: Warm and dry. No generalized rash HEAD: Atraumatic. Normocephalic. No temporal wasting, or tenderness. EYES: [place] conjunctiva. No petechia or hemorrhage. Pupils equal, round and reactive to light. Extraocular movements full and intact. No scleral icterus. No injection or drainage. EARS, NOSE AND THROAT: Nose without bleeding or purulent nasal discharge. No sinus tenderness. Mucous membranes pink and moist. No oral lesions noted. No exudate. No oral thrush. NECK: Trachea midline. Supple and not tender, no meningeal signs CARDIOVASCULAR: Regular rate and rhythm. No murmurs, rubs or gallops heard. Limited since the patient took my stethoscope out of her chest when I was listening RESPIRATORY: Clear to auscultation. Breath sounds equal bilaterally. No rales , wheezing or rhonchi ABDOMEN: Did not do since she refused EXTREMITIES: No clubbing, cyanosis, or edema. No calf tenderness. Well perfused and warm. NEUROLOGICAL: Awake and alert. No facial asymmetry, tongue midline. MOving all extremities well PSYCHIATRIC: Not cooperative LINE: no PIV Laboratory Laboratory Tests Test 04/22/17 18:00 04/22/17 19:30 04/23/17 08:25 Urine Opiates Screen NEG Urine Barbiturates Screen NEG Urine Amphetamines Screen NEG Urine Benzodiazepines Screen NEG Urine Cocaine Screen NEG Urine Cannabinoids Screen NEG White Blood Count 15.2 Red Blood Count 3.69 Hemoglobin 12.8 Hematocrit 37.5 Mean Corpuscular Volume 101.6 Mean Corpuscular Hemoglobin 34.7 Mean Corpuscular Hemoglobin Concent 34.1 Red Cell Distribution Width 11.9 Platelet Count 257 Mean Platelet Volume 7.9 Neutrophils (%) (Auto) 75.1 Lymphocytes (%) (Auto) 11.3 Monocytes (%) (Auto) 12.9 Eosinophils (%) (Auto) 0.3 Basophils (%) (Auto) 0.4 Neutrophils # (Auto) 11.5 Lymphocytes # (Auto) 1.7 Monocytes # (Auto) 2.0 Eosinophils # (Auto) 0.0 Basophils # (Auto) 0.1 CBC Comment DIFF FINAL Differential Comment Blood Urea Nitrogen 26 Creatinine 1.28 Random Glucose 105 Total Protein 7.1 Albumin 3.8 Calcium Level 8.8 Alkaline Phosphatase 51 Aspartate Amino Transf (AST/SGOT) 66 Alanine Aminotransferase (ALT/SGPT) 39 Total Bilirubin 0.8 Sodium Level 139 Potassium Level 3.6 Chloride Level 108 Carbon Dioxide Level 25.4 Anion Gap 6 Estimat Glomerular Filtration Rate 44 Ethyl Alcohol Level LESS THAN 3 Blood Gas Puncture Site RT RADIAL Blood Gas Patient Temperature 98.6 Blood Gas HCO3 22 Blood Gas Base Excess -2.3 Blood Gas Oxygen Saturation 95 Arterial Blood pH 7.42 Arterial Blood Partial Pressure CO2 34 Arterial Blood Partial Pressure O2 89 Arterial Blood Oxygen Content 17.3 Arterial Blood Carboxyhemoglobin 1.0 Arterial Blood Methemoglobin 1.2 Blood Gas Hemoglobin 12.9 Oxygen Delivery Device RA Result Diagram: 04/22/17192904/22/17 193 Imaging RADIOLOGY STUDIES/FILMS REVIEWED Head CT 04/23/17 0000 Signed Impressions: Service Date/Time: Sunday, April 23, 2017 08:33 - CONCLUSION: Normal noncontrast head CT. Renato Dailey MD Assessment and Plan Assessment and Plan IMPRESSION HIV, CD4 not known - on HAART before, she stopped them - stopped seeing her HIV provider Leukocytosis, etiology? - no obvious source of infection - ?reactive Hx schizophrenia per records - seem paranoid RECOMMENDATION Get CD4 count She will need to follow with her HIV provider and they can reevaluate her HAART Rx at that time - she seems to he compliance issues and her psych issues likely contributing to this I will not start any HIV Rx at this time Follow CBC I will be available prn and please call if with any new ID issue or question Thank you for this consultation Archana Love MD Apr 23, 2017 17:10
[2017-04-23 18:05] VITALS: BP 130/78; PULSE 65; RESP 18; TEMP 97.5; O2SAT 100
[2017-04-23] MEDS: QUEtiapine FUMARATE 25 MG TAB PO SCH (21:00)
--- NOTE | 2017-04-24 08:11 | HHI.PR ---
Subjective Remarks in no acute distress. very uncooperative with the exam and history. seen with and RN at the bedside. Objective Vitals Vital Signs Date Time Temp Pulse Resp B/P (MAP) Pulse Ox O2 Delivery O2 Flow Rate FiO2 04/23/17 18:05 97.5 65 18 130/78 (95) 100 04/23/17 08:20 79 16 152/81 (104) 98 I/O 04/23/17 04/23/17 04/23/17 04/24/17 04/24/17 04/24/17 07:00 15:00 23:00 07:00 15:00 23:00 Intake Total 0 ml 360 ml Balance 0 ml 360 ml Intake Oral 0 ml 360 ml # Voids 1 Result Diagram: 04/22/17192904/22/171929 Imaging Last Impressions Head CT 04/23/17 0000 Signed Impressions: Service Date/Time: Sunday, April 23, 2017 08:33 - CONCLUSION: Normal noncontrast head CT. Renato Dailey MD Objective Remarks GENERAL: This is a well-nourished, well-developed patient, in no apparent distress. otherwise the patient refused the physical exam at this point. Medications and IVs Current Medications Diphenhydramine HCl (Benadryl) 50 mg HS PRN PO INSOMNIA; Start 04/22/17 at 19: 30 Acetaminophen (Tylenol) 650 mg Q4H PRN PO Pain 1-5 or Temp >101F; Start at 19:30 Quetiapine Fumarate (SEROquel) 50 mg HS PO ; Start 04/22/17 at 21:00 A/P Problem List: (1) History of hepatitis C ICD Code: Z86.19 - Personal history of other infectious and parasitic diseases Status: Chronic (2) HIV disease ICD Code: B20 - Human immunodeficiency virus [HIV] disease Status: Chronic (3) Leukocytosis ICD Code: D72.829 - Elevated white blood cell count, unspecified Status: Acute (4) Altered mental status ICD Code: R41.82 - Altered mental status, unspecified Assessment and Plan Altered mental status-likely psychiatric, <?> manuel catat[place]. CT scan of the head reviewed, unremarkable. No intervention for now. ABG is unremarkable. Urine tox screen negative psych following. HIV/Hepatitis C - patient has leukocytosis, follow-up as outpatient. ID consult appreciated; antiretroviral will be resumed as outpatient. check CD4 count. Leukocytosis-per previous documentation, no signs of infection- CBC today pending. Chronic renal failure-creatinine 1.28, appears to be at baseline, recheck creatinine today pending. Mild AST elevation-level today pending. DVT prophylaxis: Low risk. Problem Qualifiers (1) Leukocytosis: Qualified Codes: D72.829 - Elevated white blood cell count, unspecified Humberto Pinto MD Apr 24, 2017 08:11
--- NOTE | 2017-04-24 10:35 | PD.PSY.CON ---
Provisional Diagnosis Admission Date Apr 22, 2017 at 19:31 [place]. Altered mental status r 41.82, dissociative few due to stress reaction f 44.1, generalized anxiety disorder F 41.1 History of Present Illness Service Psychiatry Consult Requested By Dr. Cummins Reason for Consult Second opinion Primary Care Physician No Primary Care Physician HPI Patient is a 52-year-old white female who initially came voluntary basis to the ED on 04/22/17 with visit [id number] it appears first anxious homeless and somewhat confused. She had a small dog with her. Though was consideration of admitting this patient. She claimed her dog was her service dog however those proved to be unfounded. Patient wished to be discharged AMA to be with her and well. At that time nurse practitioner assessed patient felt that she did not meet criteria for involuntary psychiatric hospitalization and she was loud to leave AMA. A few hours later it appears the police found lady wandering in the community somewhat confused. The [employer] confiscate the patient's pet dog [employer] in a detention. Patient is again screened in the ED and admitted on a voluntary basis to the unit last night. Patient was ambulatory though somewhat confused and anxious. It appears she did not receive any medication. However this morning prior to my arrival patient was found to be obtunded in her bed responding very infrequently only to deep pain stimulus. A halicat was called. Patient is seen by that team. Blood gases, labs, vital signs, overall within acceptable limits. Noncontrast CT of the skull was done which was also negative. At the present time patient remains flaccidly unresponsive. There are no signs of waxy flexibility or posturing noted. She is still significantly unresponsive to deep pain stimulus. It is 70 feel patient does not have capacity to remain on a voluntary basis on the psychiatric unit I will do a first opinion request second opinion I approached does not have capacity at this time thus I'll ask for healthcare surrogate and guardian advocate. Patient will be transferred to E for close observation and assessment. We' ll have the hospitalist some coarse continue the observation of her also. I question whether this may be some type of a fugue reaction or hysterical reaction. Leave further close observation and assessment in conjunction with the medical team 04/24/17: Second opinion Patient is a 52-year-old woman, homeless, unemployed, with unclear past psychiatric history but as per chart. Past psychiatric diagnosis of anxiety disorder, no previous psychiatric hospitalization unknown if previous suicide attempt or self-injurious behavior, has previous outpatient mental provider, Dr. Anne, with previous medication trials of Klonopin, quetiapine, Adderall with a past medical history of HIV, hep C, hyperlipidemia was transferred to the inpatient psychiatry unit for further evaluation and management due to concern of patient's ability to care for self and possible psychosis due to recent mental status changes. As per ED note patient had a recent argument with someone at the apartment complex where she states cannot return back there and has been homeless for the past couple of days which is affected her sleep as well as patient reported trying to "we myself off" of her psychiatric medications. Patient also was found to have elevated white count which may be contributing factor to possibly underlying medical cause. Patient was found lying in hospital bed with covers over her head and see with nurse and hospitalist as patient was refusing to interact and engage in interview today. Patient continued to stay multiple times "get away from me, I don't want to talk to you, get out". Patient was found with covers over her head but was able to allow for treatment team to see her face but patient's eyes were closed and refused to have eye contact. Nurse later reported that she was able to engage in some conversation with patient which patient stated that she was previously on clonazepam in the past, was not able to return back to her residence due to a "bad situation". Past Family Social History Coded Allergies: No Known Allergies (Verified Allergy, Unknown, 04/22/17) Reported Medications Quetiapine (Seroquel) 50 Mg Tab, 50 MG PO HS, #30 TAB 0 Refills 04/22/17 Clonazepam (Clonazepam) 2 Mg Tab, 2 MG PO BID, #60 TAB 0 Refills 04/22/17 Current Medications Medications (Trade) Dose Ordered Sig/Blanca Route Start Time Stop Time Status Last Admin (Benadryl) 50 mg HS PRN PO 04/22/17 19:30 (Tylenol) 650 mg Q4H PRN PO 04/22/17 19:30 (SEROquel) 50 mg HS PO 04/22/17 21:00 Patient's Strengths (min. 2) Patient able to access health care Physical Exam Vital Signs Vital Signs Date Time Temp Pulse Resp B/P (MAP) Pulse Ox O2 Delivery O2 Flow Rate FiO2 04/23/17 18:05 97.5 65 18 130/78 (95) 100 04/22/17 22:44 Room Air Mental Status Examination Appearance: Disheveled Consciousness: Alert Orientation: Person Motor Activity: Other (not formally assessed) Speech: Unremarkable Language: Adequate Fund of Knowledge: Inadequate Attention and Concentration: Adequate Memory: Impaired Mood: Angry Affect: Irritable, Other (guarded and refusing to engage in interview) Thought Process & Associations: Other (concrete) Thought Content: Other (unable to assess this patient refuses to cooperate interview) Hallucination Type: Other (unable to assess this patient refuses to cooperate interview) Delusion Type: Other (unable to assess this patient refuses to cooperate interview) Insight: Poor Judgment: Poor Mental Status Exam Remarks Unable to assess suicidality or homicidality at this time is patient refuses to cooperate with interview at this time. 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 I have seen and examined this patient, reviewed the documentation, discussed personally with Dr. Cummins, and I agree and concur with his assessment and plan. Consult appreciated. Patient currently with limited interaction staff and financial underwriter. Patient not oriented to place, there is suspicion of possible psychosis due to patient's recent confusion that led her back to the hospital after recently being discharged from the ER as well as to rule out medical causes for altered mental status. Patient will continue on observation of mood and behavior as well as followed by primary medical team. Will start quetiapine 50 mg by mouth twice a day for psychosis. Collateral from admission pending. Discharge planning in progress Discharge Planning Unclear where patient will be discharged to at this time due to patient's reluctance to engage in cooperate with interview. Request HC Surrog/Guard Advoc?: Yes Heriberto Narayanan MD Apr 24, 2017 10:35
--- NOTE | 2017-04-24 14:57 | PD.TTN ---
Patient Problems 1. Discharge planning 2. Medication compliance 3. Knowledge deficit 4. Lack of coping skills Progress Toward Goals Provider Present: Dr. Sol Narayanan Provider Input: Per doctor patient will be assess for medication and treatment Nurse(s) Present: Lisandro Michelle RN Nurse(s) Input: Per nurse, patient has been minimally interactive with staff. Patient is isolating and keeps her blanket completely covering her head. Patient is not eating or taking her medication Psychiatric Counselors Present: CLEMENCIA Pina Psych Therapist Input: Patient will assess with patient treatment goals and plans Group Spec/RT/OT/VARGAS Present: Jack Cuenca OT Group Spec/RT/OT/VARGAS Input: Patient will assess with patient treatment goals and plans Documentation Scribe: CLEMENCIA Pina Sandra LMHC Apr 24, 2017 14:57
[2017-04-24] MEDS ORDERED: FLUMAZENIL 0.5 MG/5 ML VIAL IV PUSH PRN (15:00)
[2017-04-24] MEDS ORDERED: hydrOXYzine HCL 25 MG TAB PO PRN (15:00)
[2017-04-24] MEDS ORDERED: LORazepam 2 MG TAB PO PRN (15:00)
[2017-04-24] MEDS ORDERED: ALUMINUM/MAGNESIUM/SIMETH 30 ML CUP PO PRN (15:00)
[2017-04-24] MEDS ORDERED: MAGNESIUM HYDROXIDE SUSP 30 ML CUP PO PRN (15:00)
[2017-04-24] MEDS ORDERED: LORazepam 2 MG/ML VIAL IV PUSH PRN ×4 (15:00)
[2017-04-24] MEDS: NICOTINE 21 MG/24 HR PATCH T-DERMAL SCH (15:00)
[2017-04-24] MEDS ORDERED: LORazepam 1 MG TAB PO PRN (15:00)
[2017-04-24 18:16] VITALS: BP 162/89; PULSE 89; RESP 18; TEMP 99; O2SAT 98
[2017-04-24] MEDS: SODIUM CHLOR 0.9% 1000 ML INJ 1,000 ML IV SCH (18:56)
[2017-04-24] MEDS: QUEtiapine FUMARATE 25 MG TAB PO SCH (21:00)
[2017-04-24 21:40] LABS: AUTOMATED NEUTROPHIL # 6.1 TH/MM3 (1.8-7.7); BASOPHIL # 0.1 TH/MM3 (0-0.2); BASOPHIL % 0.9 % (0.0-2.0); EOSINOPHIL # 0.1 TH/MM3 (0-0.4); EOSINOPHIL % 0.7 % (0.0-4.0); HEMATOCRIT 41.1 % (35.0-46.0); HEMO FLAGS DIFF FINAL; LYMPH % 13.3 % (9.0-44.0); LYMPHOCYTE # 1.1 TH/MM3 (1.0-4.8); MEAN CELL VOLUME 102.4 FL (80.0-100.0); MEAN CORPUSCULAR HEMOGLOBIN 35.3 PG (27.0-34.0); MEAN CORPUSCULAR HGB CONC 34.5 % (32.0-36.0); MONO % 8.9 % (0.0-8.0); NEUT % 76.2 % (16.0-70.0); PLATELET COUNT 245 TH/MM3 (150-450); RED BLOOD COUNT 4.01 MIL/MM3 (4.00-5.30); RED CELL DISTRIBUTION WIDTH 11.8 % (11.6-17.2)
[2017-04-24 22:01] LABS: ANION GAP 17 MEQ/L (5-15); AST (GOT) 28 U/L (15-37); BICARBONATE 17.1 MEQ/L (21.0-32.0); BLOOD UREA NITROGEN 24 MG/DL (7-18); CHLORIDE 109 MEQ/L (98-107); GLOMERULAR FILTRATION RATE 61 ML/MIN (>89); POTASSIUM 3.5 MEQ/L (3.5-5.1); SODIUM (NA) 143 MEQ/L (136-145)
[2017-04-24 22:03] LABS: ALT (GPT) 30 U/L (10-53)
[2017-04-24 22:05] LABS: ALKALINE PHOSPHATASE 58 U/L (45-117); TOTAL BILIRUBIN ADULT 0.6 MG/DL (0.2-1.0)
[2017-04-25 01:52] LABS: BACTERIA, URINE RARE /hpf; BLOOD, URINE NEG (NEG); COMMENT (UR) CULT NOT INDICATED; CULTURE IF INDICATED CULT NOT INDICATED; GLUCOSE,URINE NEG (NEG); KETONE, URINE 80 mg/dL (NEG); MUCUS URINE FEW /lpf (OCC); NITRITE,URINE NEG (NEG); SQUAMOUS EPITHELIAL CELL URINE 2 /hpf (0-5); URINE COLOR YELLOW (YELLW/STRAW)
[2017-04-25] MEDS: SODIUM CHLOR 0.9% 1000 ML INJ 1,000 ML IV SCH ×2 (05:00→15:00)
[2017-04-25 06:16] VITALS: BP 144/81; PULSE 96; RESP 16; TEMP 97.3; O2SAT 98
--- NOTE | 2017-04-25 08:38 | HHI.PR ---
Subjective Remarks looks and feels much better today. is much more cooperative. denies any pain. says that ' doesn't have that much of appetite'. d/w the RN and no acute issues over night. Objective Vitals Vital Signs Date Time Temp Pulse Resp B/P (MAP) Pulse Ox O2 Delivery O2 Flow Rate FiO2 04/25/17 06:16 97.3 96 16 144/81 (102) 98 04/24/17 18:16 99.0 89 18 162/89 (113) 98 I/O 04/24/17 04/24/17 04/24/17 04/25/17 04/25/17 04/25/17 07:00 15:00 23:00 07:00 15:00 23:00 Intake Total 1360 ml Balance 1360 ml Intake Oral 360 ml IV Total 1000 ml # Voids 1 1 Result Diagram: 04/24/17210504/24/172105 Imaging Last Impressions Head CT 04/23/17 0000 Signed Impressions: Service Date/Time: Sunday, April 23, 2017 08:33 - CONCLUSION: Normal noncontrast head CT. Renato Dailey MD Objective Remarks GENERAL: This is a well-nourished, well-developed patient, in no apparent distress. otherwise the patient refused the physical exam at this point. Medications and IVs Current Medications Diphenhydramine HCl (Benadryl) 50 mg HS PRN PO INSOMNIA; Start 04/22/17 at 19: 30 Acetaminophen (Tylenol) 650 mg Q4H PRN PO Pain 1-5 or Temp >101F; Start at 19:30 Quetiapine Fumarate (SEROquel) 50 mg HS PO ; Start 04/22/17 at 21:00; Stop at 15:02; Status DC Flumazenil (Romazicon Inj) 0.2 mg Q1M PRN IV PUSH SEE LABEL COMMENTS; Start at 15:00 Lorazepam (Ativan) 1 mg Q4H PRN PO CIWA 8 - 10; Start 04/24/17 at 15:00 Lorazepam (Ativan Inj) 1 mg Q4H PRN IV PUSH CIWA 8 - 10 Last administered on t 02:13; Start 04/24/17 at 15:00 Lorazepam (Ativan) 2 mg Q2H PRN PO CIWA 11-14; Start 04/24/17 at 15:00 Lorazepam (Ativan Inj) 2 mg Q2H PRN IV PUSH CIWA 11-14; Start 04/24/17 at 15: 00 Lorazepam (Ativan Inj) 2 mg Q1H PRN IV PUSH CIWA 15-20; Start 04/24/17 at 15: 00 Lorazepam (Ativan Inj) 2 mg Q15M PRN IV PUSH CIWA > 20; Start 04/24/17 at 15: 00 Hydroxyzine HCl (Atarax) 25 mg Q8H PRN PO MODERATE TO SEVERE ANXIETY; Start at 15:00 Magnesium Hydroxide (Milk Of Magnesia Liq) 30 ml DAILY PRN PO CONSTIPATION; Start 04/24/17 at 15:00 Al Hydrox/Mg Hydrox/Simethicone (Mag-Al Plus Susp Liq) 30 ml Q6H PRN PO DYSPEPSIA; Start 04/24/17 at 15:00 Nicotine (Habitrol 21 Mg Patch.24 Hr) 1 patch DAILY T-DERMAL ; Start 04/24/17 at 15:00 Miscellaneous Information 1 DAILY T-DERMAL ; Start 04/25/17 at 09:00 Quetiapine Fumarate (SEROquel) 50 mg BID PO ; Start 04/24/17 at 21:00 Sodium Chloride 1,000 ml @ 100 mls/hr Q10H IV Last administered on 04/25/17t 05:00; Start 04/24/17 at 19:00 A/P Problem List: (1) History of hepatitis C ICD Code: Z86.19 - Personal history of other infectious and parasitic diseases Status: Chronic (2) HIV disease ICD Code: B20 - Human immunodeficiency virus [HIV] disease Status: Chronic (3) Leukocytosis ICD Code: D72.829 - Elevated white blood cell count, unspecified Status: Acute (4) Altered mental status ICD Code: R41.82 - Altered mental status, unspecified Assessment and Plan A/P Altered mental status-likely psychiatric- has much improved- CT scan of the head reviewed, unremarkable. No intervention for now. ABG is unremarkable. Urine tox screen negative psych following. HIV/Hepatitis C - follow-up as outpatient. ID consult appreciated; antiretroviral will be resumed as outpatient. CD4 count pending. Leukocytosis-resolved, no signs of infection- Chronic renal failure- appears to be at baseline. continue IV fluid- BMP tomorrow. Mild AST elevation-improved. DVT prophylaxis: Low risk. Problem Qualifiers (1) Leukocytosis: Qualified Codes: D72.829 - Elevated white blood cell count, unspecified Humberto Pinto MD Apr 25, 2017 08:38
[2017-04-25] MEDS: NICOTINE 21 MG/24 HR PATCH T-DERMAL SCH (09:00)
[2017-04-25] MEDS: REMOVE OLD PATCH T-DERMAL SCH (09:00)
[2017-04-25] MEDS: QUEtiapine FUMARATE 25 MG TAB PO SCH ×2 (09:07→21:00)
[2017-04-25] MEDS: SERTRALINE HCL 50 MG TAB PO SCH (09:15)
--- NOTE | 2017-04-25 10:56 | HHI.PYPN ---
Subjective Chief Complaint: patient unresponsive flaccid Remarks Patient is seen for follow-up, chart review. Discussion with nursing staff reported the patient refuse medications initially last evening but started taking of this morning. Patient also accepted to have labs drawn as well as EKG today. Patient was noted to be trying to make multiple phone calls and refused to allow her mother to be involved in her care. Patient found lying in hospital bed and seen with nurse. Patient states that she had a "nervous breakdown recently, there was attempting to recant events that led to her hospitalization and stating that she came to the hospital voluntarily and mentioned later the police and brought to the hospital. Patient had multiple inconsistencies with her history and appearing the patient hasn't no clear recollection of how she was admitted to the hospital. Patient states that all she did was sleep and that she is "better now" stating that she feels more awake and reported that she has not slept for days. Patient states that her memory has not that clear but does recall having been followed by outpatient psychiatrist, Dr. Anne, which she states was trying to wean herself off her medicines. Patient was advised that she currently is here involuntarily and a petition for her involuntary hospitalization had been completed and will go to mental health court tomorrow. Patient states that she does not want to stay in the hospital and that she would like to to continue her outpatient treatment with her psychiatrist. Patient reports that she has been hospitalized "a couple of times" but does not recall the last hospitalization. Patient denies any previous suicide attempt or self-injurious behavior. Patient states that she last took her medications couple of days ago which included Seroquel and Klonopin. Patient agreed to start sertraline 50 mg by mouth daily for her depression as well as continue quetiapine at "only low doses" as she stated she had been previously on higher doses in the past was unable to report how much. Mental Status Examination Appearance: Disheveled Consciousness: Alert Orientation: Person Motor Activity: Other (not formally assessed) Speech: Unremarkable Language: Adequate Fund of Knowledge: Inadequate Attention and Concentration: Adequate Memory: Impaired Mood: Angry Affect: Irritable, Other (guarded) Thought Process & Associations: Disorganized Thought Content: Other (perseverative on discharge but unable to recall events that brought to the hospital) Hallucination Type: None Delusion Type: None Suicidal Ideation: No Suicidal Plan: No Suicidal Intention: No Homicidal Ideation: No Homicidal Plan: No Homicidal Intention: No Insight: Poor Judgment: Poor Results Labs Test 04/24/17 21:06 04/25/17 01:05 04/25/17 06:37 White Blood Count 8.0 TH/MM3 Red Blood Count 4.01 MIL/MM3 Hemoglobin 14.2 GM/DL Hematocrit 41.1 % Mean Corpuscular Volume 102.4 FL Mean Corpuscular Hemoglobin 35.3 PG Mean Corpuscular Hemoglobin Concent 34.5 % Red Cell Distribution Width 11.8 % Platelet Count 245 TH/MM3 Mean Platelet Volume 8.2 FL Neutrophils (%) (Auto) 76.2 % Lymphocytes (%) (Auto) 13.3 % Monocytes (%) (Auto) 8.9 % Eosinophils (%) (Auto) 0.7 % Basophils (%) (Auto) 0.9 % Neutrophils # (Auto) 6.1 TH/MM3 Lymphocytes # (Auto) 1.1 TH/MM3 Monocytes # (Auto) 0.7 TH/MM3 Eosinophils # (Auto) 0.1 TH/MM3 Basophils # (Auto) 0.1 TH/MM3 CBC Comment DIFF FINAL Differential Comment Blood Urea Nitrogen 24 MG/DL Creatinine 0.97 MG/DL Random Glucose 54 MG/DL Total Protein 7.3 GM/DL Albumin 3.7 GM/DL Calcium Level 8.6 MG/DL Alkaline Phosphatase 58 U/L Aspartate Amino Transf (AST/SGOT) 28 U/L Alanine Aminotransferase (ALT/SGPT) 30 U/L Total Bilirubin 0.6 MG/DL Sodium Level 143 MEQ/L Potassium Level 3.5 MEQ/L Chloride Level 109 MEQ/L Carbon Dioxide Level 17.1 MEQ/L Anion Gap 17 MEQ/L Estimat Glomerular Filtration Rate 61 ML/MIN Urine Color YELLOW Urine Turbidity CLEAR Urine pH 6.0 Urine Specific [place] 1.023 Urine Protein 30 mg/dL Urine Glucose (UA) NEG mg/dL Urine Ketones 80 mg/dL Urine Occult Blood NEG Urine Nitrite NEG Urine Bilirubin NEG Urine Urobilinogen LESS THAN 2.0 MG/DL Urine Leukocyte Esterase NEG Urine RBC 3 /hpf Urine WBC 3 /hpf Urine Squamous Epithelial Cells 2 /hpf Urine Bacteria RARE /hpf Urine Mucus FEW /lpf Microscopic Urinalysis Comment CULT NOT INDICATED Triglycerides Level 149 MG/DL Cholesterol Level 225 MG/DL LDL Cholesterol 151 MG/DL HDL Cholesterol 44.0 MG/DL Cholesterol/HDL Ratio 5.11 RATIO Thyroid Stimulating Hormone 3rd Gen 1.660 uIU/ML Vitals/IOs Vital Signs Date Time Temp Pulse Resp B/P (MAP) Pulse Ox O2 Delivery O2 Flow Rate FiO2 04/25/17 06:16 97.3 96 16 144/81 (102) 98 04/22/17 22:44 Room Air Intake and Output 04/25/17 04/25/17 04/26/17 08:00 16:00 00:00 Intake Total 1600 ml Balance 1600 ml Assessment & Plan Problem List: (1) Unspecified psychosis ICD Codes: F29 - Unspecified psychosis not due to a substance or known physiological condition (2) Altered mental status ICD Codes: R41.82 - Altered mental status, unspecified (3) 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 Patient continues to be confused with circumstances that led to her hospitalization unable to recall events versus involving her admission. Patient has inconsistencies in her history which continues to be of concern as well as she states her memory not being clear. We'll continue Seroquel 50 mg by mouth twice a day, start sertraline 50 mg by mouth daily for depression. Patient will present to mental health court tomorrow as patient requested discharge and although there is concern for stability care of herself due to her initial presentation and documented recent visit in the ER. We'll continue monitor mood and behavior. Collateral pending. Discharge planning in progress. Justification for Cont. Inpt. At risk for decompensation if at lower level of care Discharge Planning Unclear whether patient will be able to return to her prior residence. Request HC Surrog/Guard Advoc?: Yes Heriberto Narayanan MD Apr 25, 2017 10:55
[2017-04-25 12:32] LABS: HEMOGLOBIN A1a 0.8 %; HEMOGLOBIN A1b 1.3 %; HEMOGLOBIN Ao 87.5 %; HEMOGLOBIN P3 3.4 %
[2017-04-25 18:00] VITALS: BP 160/87; PULSE 76; RESP 17; TEMP 98.3; O2SAT 99
--- NOTE | 2017-04-25 19:27 | EKG ---
Date Performed: 04/25/2017 Time Performed: 08:29:00 PTAGE: 52 years EKG: Sinus rhythm NORMAL ECG PREVIOUS TRACING : 10/31/2013 23.18 Anterior T-wave abnormality has resolved from the prior tra cing. DOCTOR: Ger Rowland Interpretating Date/Time 04/25/2017 19:26:04
[2017-04-26 06:45] VITALS: BP 171/99; PULSE 86; RESP 20; TEMP 96.2; O2SAT 96
[2017-04-26 07:00] LABS: BICARBONATE 22.1 MEQ/L (21.0-32.0); POTASSIUM 3.2 MEQ/L (3.5-5.1)
--- NOTE | 2017-04-26 08:30 | HHI.PR ---
Subjective Remarks not as responsive as yesterday. in no acute distress. d/w the RN; reportedly refused the IV fluid and refused to eat last night. d/w . Objective Vitals Vital Signs Date Time Temp Pulse Resp B/P (MAP) Pulse Ox O2 Delivery O2 Flow Rate FiO2 04/26/17 06:45 96.2 86 20 171/99 (123) 96 04/25/17 18:00 98.3 76 17 160/87 (111) 99 I/O 04/25/17 04/25/17 04/25/17 04/26/17 04/26/17 04/26/17 07:00 15:00 23:00 07:00 15:00 23:00 Intake Total 1360 ml 240 ml 240 ml 0 ml Balance 1360 ml 240 ml 240 ml 0 ml Intake Oral 360 ml 240 ml 240 ml 0 ml IV Total 1000 ml # Voids 1 3 Result Diagram: 04/24/17210504/26/17 0559 Imaging Last Impressions Head CT 04/23/17 0000 Signed Impressions: Service Date/Time: Sunday, April 23, 2017 08:33 - CONCLUSION: Normal noncontrast head CT. Renato Dailey MD Objective Remarks GENERAL: This is a well-nourished, well-developed patient, in no apparent distress. otherwise the patient refused the physical exam at this point. Medications and IVs Current Medications Diphenhydramine HCl (Benadryl) 50 mg HS PRN PO INSOMNIA; Start 04/22/17 at 19: 30 Acetaminophen (Tylenol) 650 mg Q4H PRN PO Pain 1-5 or Temp >101F; Start at 19:30 Quetiapine Fumarate (SEROquel) 50 mg HS PO ; Start 04/22/17 at 21:00; Stop at 15:02; Status DC Flumazenil (Romazicon Inj) 0.2 mg Q1M PRN IV PUSH SEE LABEL COMMENTS; Start at 15:00 Lorazepam (Ativan) 1 mg Q4H PRN PO CIWA 8 - 10; Start 04/24/17 at 15:00 Lorazepam (Ativan Inj) 1 mg Q4H PRN IV PUSH CIWA 8 - 10 Last administered on t 02:13; Start 04/24/17 at 15:00 Lorazepam (Ativan) 2 mg Q2H PRN PO CIWA 11-14; Start 04/24/17 at 15:00 Lorazepam (Ativan Inj) 2 mg Q2H PRN IV PUSH CIWA 11-14; Start 04/24/17 at 15: 00 Lorazepam (Ativan Inj) 2 mg Q1H PRN IV PUSH CIWA 15-20; Start 04/24/17 at 15: 00 Lorazepam (Ativan Inj) 2 mg Q15M PRN IV PUSH CIWA > 20; Start 04/24/17 at 15: 00 Hydroxyzine HCl (Atarax) 25 mg Q8H PRN PO MODERATE TO SEVERE ANXIETY; Start at 15:00 Magnesium Hydroxide (Milk Of Magnesia Liq) 30 ml DAILY PRN PO CONSTIPATION; Start 04/24/17 at 15:00 Al Hydrox/Mg Hydrox/Simethicone (Mag-Al Plus Susp Liq) 30 ml Q6H PRN PO DYSPEPSIA; Start 04/24/17 at 15:00 Nicotine (Habitrol 21 Mg Patch.24 Hr) 1 patch DAILY T-DERMAL ; Start 04/24/17 at 15:00 Miscellaneous Information 1 DAILY T-DERMAL ; Start 04/25/17 at 09:00 Quetiapine Fumarate (SEROquel) 50 mg BID PO Last administered on 04/25/17 09: 07; Start 04/24/17 at 21:00 Sodium Chloride 1,000 ml @ 100 mls/hr Q10H IV Last administered on 04/25/17 05:00; Start 04/24/17 at 19:00 Sertraline HCl (Zoloft) 50 mg DAILY PO ; Start 04/25/17 at 09:15 A/P Problem List: (1) History of hepatitis C ICD Code: Z86.19 - Personal history of other infectious and parasitic diseases Status: Chronic (2) HIV disease ICD Code: B20 - Human immunodeficiency virus [HIV] disease Status: Chronic (3) Leukocytosis ICD Code: D72.829 - Elevated white blood cell count, unspecified Status: Acute (4) Altered mental status ICD Code: R41.82 - Altered mental status, unspecified Assessment and Plan A/P Altered mental status-likely psychiatric- has much improved- CT scan of the head reviewed, unremarkable. No intervention for now. ABG is unremarkable. Urine tox screen negative psych following. HIV/Hepatitis C - follow-up as outpatient. ID consult appreciated; antiretroviral will be resumed as outpatient. CD4 count pending. Leukocytosis-resolved, no signs of infection- Chronic renal failure- renal function has improved. mild hypokalemia; will try to replace it via IV fluid. Mild AST elevation-improved. DVT prophylaxis: Low risk. Problem Qualifiers (1) Leukocytosis: Qualified Codes: D72.829 - Elevated white blood cell count, unspecified Humberto Pinto MD Apr 26, 2017 08:30
[2017-04-26] MEDS: REMOVE OLD PATCH T-DERMAL SCH (08:42)
[2017-04-26] MEDS: QUEtiapine FUMARATE 25 MG TAB PO SCH (08:42)
[2017-04-26] MEDS: NICOTINE 21 MG/24 HR PATCH T-DERMAL SCH (08:42)
[2017-04-26] MEDS: SERTRALINE HCL 50 MG TAB PO SCH (08:42)
[2017-04-26] MEDS: NS + KCL 20 MEQ INJ 1,000 ML IV SCH ×3 (08:45→23:58)
--- NOTE | 2017-04-26 13:36 | HHI.PYPN ---
Subjective Chief Complaint: patient unresponsive flaccid Remarks Patient seen for follow-up, chart reviewed. Discussion with nursing staff reported the patient refusing care, not eating, and was noted to be soiled with urine this morning. Patient was found lying in hospital bed in position refusing to answer or participate in interview at all. Patient's case was carried through mental health court which local company tanker driver had decided to retain patient for involuntary admission and treatment. Healthcare surrogate was reported to be her mother which treatment will be discussed with her going forward as patient at this time has no capacity to participate in decision making. Mental Status Examination Appearance: Dirty, Disheveled, Malodorous Consciousness: Alert Orientation: Person Motor Activity: Other (not formally assessed) Speech: Unremarkable Language: Other (refusing to speak) Fund of Knowledge: Inadequate Attention and Concentration: Inadequate Memory: Impaired Mood: Other (unable to assess this patient's refusing to cooperate interview) Affect: Other (guarded; not participating in interview) Thought Process & Associations: Other (unable to assess this patient's refusing to cooperate interview) Thought Content: Other (unable to assess this patient's refusing to cooperate interview) Hallucination Type: None (unable to assess this patient's refusing to cooperate interview) Delusion Type: None (unable to assess this patient's refusing to cooperate interview) Suicidal Ideation: No Suicidal Plan: No Suicidal Intention: No Homicidal Ideation: No Homicidal Plan: No Homicidal Intention: No Insight: Poor Judgment: Poor Results Labs Labs reviewed. Test 04/26/17 05:59 Blood Urea Nitrogen 13 MG/DL Creatinine 0.95 MG/DL Random Glucose 78 MG/DL Calcium Level 8.7 MG/DL Sodium Level 137 MEQ/L Potassium Level 3.2 MEQ/L Chloride Level 105 MEQ/L Carbon Dioxide Level 22.1 MEQ/L Anion Gap 10 MEQ/L Estimat Glomerular Filtration Rate 62 ML/MIN Vitals/IOs Vital Signs Date Time Temp Pulse Resp B/P (MAP) Pulse Ox O2 Delivery O2 Flow Rate FiO2 04/26/17 06:45 96.2 86 20 171/99 (123) 96 04/22/17 22:44 Room Air Intake and Output 04/26/17 04/26/17 04/27/17 08:00 16:00 00:00 Intake Total 0 ml Balance 0 ml Assessment & Plan Problem List: (1) Unspecified psychosis ICD Codes: F29 - Unspecified psychosis not due to a substance or known physiological condition (2) Altered mental status ICD Codes: R41.82 - Altered mental status, unspecified (3) 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 Healthcare surrogate was reported to be patient's mother. Due to possible psychosis patient will require treatment over objection patient at this time his deep not having capacity to participate in decision making. Will discontinue Seroquel, we'll start olanzapine 5 mg by mouth twice a day, will order olanzapine 5 mg IM twice a day if patient refuses by mouth medication. Continue sertraline 50 mg by mouth daily, continue with her medications and recommendations as per primary medical team. Consent will be obtained by patient's healthcare surrogate (mother) prior to administration of medications. Discharge planning in progress Justification for Cont. Inpt. At risk for further decompensation if at lower level of care Discharge Planning Patient to return back to her residence once psychiatrically stable Request HC Surrog/Guard Advoc?: Yes Heriberto Narayanan MD Apr 26, 2017 13:36
[2017-04-26 18:03] VITALS: BP 151/91; PULSE 71; RESP 18; TEMP 96.4; O2SAT 98
[2017-04-26] MEDS ORDERED: POTASSIUM CHLORIDE INJ 20 MEQ in SODIUM CHLOR 0.9% 1000 ML INJ 1,000 ML IV SCH (19:00)
[2017-04-26] MEDS: OLANZapine 5 MG TAB PO SCH (21:00)
[2017-04-26] MEDS: OLANZapine IM 10 MG VIAL IM SCH (21:05)
[2017-04-26 23:53] LABS: CD4/CD8 RATIO 1.4 (0.86-5.00)
[2017-04-27 05:39] VITALS: BP 122/62; PULSE 61; RESP 15; TEMP 97.4; O2SAT 97
[2017-04-27] MEDS: SERTRALINE HCL 50 MG TAB PO SCH (08:11)
[2017-04-27] MEDS: OLANZapine 5 MG TAB PO SCH ×2 (08:14→21:00)
[2017-04-27] MEDS: REMOVE OLD PATCH T-DERMAL SCH (08:18)
[2017-04-27] MEDS: NICOTINE 21 MG/24 HR PATCH T-DERMAL SCH (08:18)
[2017-04-27] MEDS: OLANZapine IM 10 MG VIAL IM SCH ×2 (08:18→21:00)
--- NOTE | 2017-04-27 08:44 | HHI.PR ---
Subjective Remarks in no distress. awake, alert but not cooperative with the exam. d/w . Objective Vitals Vital Signs Date Time Temp Pulse Resp B/P (MAP) Pulse Ox O2 Delivery O2 Flow Rate FiO2 04/27/17 05:39 97.4 61 15 122/62 (82) 97 04/26/17 18:03 96.4 71 18 151/91 (111) 98 I/O 04/26/17 04/26/17 04/26/17 04/27/17 04/27/17 04/27/17 07:00 15:00 23:00 07:00 15:00 23:00 Intake Total 0 ml 120 ml Balance 0 ml 120 ml Intake Oral 0 ml 120 ml # Voids 3 2 Result Diagram: 04/24/17210504/26/17 0559 Imaging Last Impressions Head CT 04/23/17 0000 Signed Impressions: Service Date/Time: Sunday, April 23, 2017 08:33 - CONCLUSION: Normal noncontrast head CT. Renato Dailey MD Objective Remarks GENERAL: This is a well-nourished, well-developed patient, in no apparent distress. otherwise the patient refused the physical exam at this point. Medications and IVs Current Medications Diphenhydramine HCl (Benadryl) 50 mg HS PRN PO INSOMNIA; Start 04/22/17 at 19: 30 Acetaminophen (Tylenol) 650 mg Q4H PRN PO Pain 1-5 or Temp >101F; Start at 19:30 Quetiapine Fumarate (SEROquel) 50 mg HS PO ; Start 04/22/17 at 21:00; Stop at 15:02; Status DC Flumazenil (Romazicon Inj) 0.2 mg Q1M PRN IV PUSH SEE LABEL COMMENTS; Start at 15:00 Lorazepam (Ativan) 1 mg Q4H PRN PO CIWA 8 - 10; Start 04/24/17 at 15:00 Lorazepam (Ativan Inj) 1 mg Q4H PRN IV PUSH CIWA 8 - 10 Last administered on t 02:13; Start 04/24/17 at 15:00 Lorazepam (Ativan) 2 mg Q2H PRN PO CIWA 11-14; Start 04/24/17 at 15:00 Lorazepam (Ativan Inj) 2 mg Q2H PRN IV PUSH CIWA 11-14; Start 04/24/17 at 15: 00 Lorazepam (Ativan Inj) 2 mg Q1H PRN IV PUSH CIWA 15-20; Start 04/24/17 at 15: 00 Lorazepam (Ativan Inj) 2 mg Q15M PRN IV PUSH CIWA > 20; Start 04/24/17 at 15: 00 Hydroxyzine HCl (Atarax) 25 mg Q8H PRN PO MODERATE TO SEVERE ANXIETY; Start at 15:00 Magnesium Hydroxide (Milk Of Magnesia Liq) 30 ml DAILY PRN PO CONSTIPATION; Start 04/24/17 at 15:00 Al Hydrox/Mg Hydrox/Simethicone (Mag-Al Plus Susp Liq) 30 ml Q6H PRN PO DYSPEPSIA; Start 04/24/17 at 15:00 Nicotine (Habitrol 21 Mg Patch.24 Hr) 1 patch DAILY T-DERMAL ; Start 04/24/17 at 15:00 Miscellaneous Information 1 DAILY T-DERMAL ; Start 04/25/17 at 09:00 Quetiapine Fumarate (SEROquel) 50 mg BID PO Last administered on 04/25/17 09: 07; Start 04/24/17 at 21:00; Stop 04/26/17 at 13:40; Status DC Sodium Chloride 1,000 ml @ 100 mls/hr Q10H IV Last administered on 04/25/17 05:00; Start 04/24/17 at 19:00; Stop 04/26/17 at 08:32; Status DC Sertraline HCl (Zoloft) 50 mg DAILY PO Last administered on 04/27/17 08:11; Start 04/25/17 at 09:15 Potassium Chloride 20 meq/ Sodium Chloride 1,010 ml @ 100 mls/hr Q10H6M IV ; Start 04/26/17 at 19:00; Stop 04/26/17 at 19:00; Status DC Potassium Chloride/Sodium Chloride 1,000 ml @ 100 mls/hr Q10H IV Last administered on 04/26/17 23:58; Start 04/26/17 at 08:45 Olanzapine (ZyPREXA) 5 mg Q12HR PO Last administered on 04/27/17 08:14; Start 04/26/17 at 21:00 Olanzapine (ZyPREXA INJ) 5 mg Q12HR IM Last administered on 04/26/17 21:05; Start 04/26/17 at 21:00 A/P Problem List: (1) History of hepatitis C ICD Code: Z86.19 - Personal history of other infectious and parasitic diseases Status: Chronic (2) HIV disease ICD Code: B20 - Human immunodeficiency virus [HIV] disease Status: Chronic (3) Leukocytosis ICD Code: D72.829 - Elevated white blood cell count, unspecified Status: Acute (4) Altered mental status ICD Code: R41.82 - Altered mental status, unspecified Assessment and Plan A/P Altered mental status-likely psychiatric- has much improved- CT scan of the head reviewed, unremarkable. No intervention for now. ABG is unremarkable. Urine tox screen negative psych following. HIV/Hepatitis C - follow-up as outpatient. ID consult appreciated; antiretroviral will be resumed as outpatient. CD4 count 472. Leukocytosis-resolved, no signs of infection- Chronic renal failure- renal function has improved. mild hypokalemia; being replaced through IV fluid- BMP tomorrow. Mild AST elevation-improved. DVT prophylaxis: Low risk. Problem Qualifiers (1) Leukocytosis: Qualified Codes: D72.829 - Elevated white blood cell count, unspecified Humberto Pinto MD Apr 27, 2017 08:44
--- NOTE | 2017-04-27 10:22 | HHI.PYPN ---
Subjective Chief Complaint: patient unresponsive flaccid Remarks Patient seen for follow-up, chart reviewed. Discussion with nursing staff reported the patient refuses by mouth medications last evening and was provided medication via IM after consent was provided with her healthcare surrogate ( mother) allergies. Patient continues to urinate on herself in the med, not eating and having poor sleep as well as refusing to cooperate with treatment and care. Patient found lying in hospital bed and seen getting up to serve herself a cup of water states that she is not drinking but refused to say anything else during interview which she then lay back down and cover herself with a blanket over her head. Patient prior to film writer living room after continue to refuse to engage in interview asks how long she would be kept in the hospital which was explained to patient that when she is adhere to treatment and improving she will be discharged as soon as she is medically psychiatric stable. Patient does not respond and remote reverts back to covering herself with a blanket. Patient was encouraged to take a shower and maintain personal hygiene. Patient was also asked to speak about her urinary incontinence refused to engage in interview. Review of Systems Except as stated in HPI: all other systems reviewed are Neg Mental Status Examination Appearance: Dirty, Disheveled, Malodorous Consciousness: Alert Orientation: Person Motor Activity: Other (not formally assessed) Speech: Unremarkable Language: Other (refusing to speak) Fund of Knowledge: Inadequate Attention and Concentration: Inadequate Memory: Impaired Mood: Other (unable to assess this patient's refusing to cooperate interview) Affect: Other (guarded; not participating in interview) Thought Process & Associations: Other (unable to assess this patient's refusing to cooperate interview) Thought Content: Other (unable to assess this patient's refusing to cooperate interview) Hallucination Type: None (unable to assess this patient's refusing to cooperate interview) Delusion Type: None (unable to assess this patient's refusing to cooperate interview) Suicidal Ideation: No Suicidal Plan: No Suicidal Intention: No Homicidal Ideation: No Homicidal Plan: No Homicidal Intention: No Insight: Poor Judgment: Poor Results Vitals/IOs Vital Signs Date Time Temp Pulse Resp B/P (MAP) Pulse Ox O2 Delivery O2 Flow Rate FiO2 04/27/17 05:39 97.4 61 15 122/62 (82) 97 Intake and Output 04/27/17 04/27/17 04/28/17 08:00 16:00 00:00 Intake Total 240 ml Balance 240 ml Assessment & Plan Problem List: (1) Unspecified psychosis ICD Codes: F29 - Unspecified psychosis not due to a substance or known physiological condition (2) Altered mental status ICD Codes: R41.82 - Altered mental status, unspecified (3) 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 Patient continues to have poor nutritional intake, will have nutritional consult placed. Patient to continue current treatment. Continue to encourage patient to maintain personal hygiene, nutritional intake as well as encouragement to participate in her care. Continue recommendations as per primary medical team. Discharge planning in progress Justification for Cont. Inpt. At risk for further decompensation if at lower level of care Discharge Planning Patient may return back to her residence or be transferred to the [facility] to be with her mother once psychiatrically stable Request HC Surrog/Guard Advoc?: Yes Heriberto Narayanan MD Apr 27, 2017 10:22
[2017-04-27] MEDS: NS + KCL 20 MEQ INJ 1,000 ML IV SCH (14:11)
[2017-04-27 17:59] VITALS: BP 150/82; PULSE 72; RESP 16; O2SAT 98
[2017-04-28] MEDS: NS + KCL 20 MEQ INJ 1,000 ML IV SCH ×3 (00:45→20:45)
[2017-04-28 05:58] LABS: BASOPHIL # 0.1 TH/MM3 (0-0.2); BASOPHIL % 0.9 % (0.0-2.0); EOSINOPHIL # 0.2 TH/MM3 (0-0.4); EOSINOPHIL % 1.8 % (0.0-4.0); HEMATOCRIT 45.8 % (35.0-46.0); HEMO FLAGS DIFF FINAL; LYMPHOCYTE # 1.5 TH/MM3 (1.0-4.8); MEAN CORPUSCULAR HEMOGLOBIN 34.4 PG (27.0-34.0); MONO % 8.6 % (0.0-8.0); NEUT % 72.7 % (16.0-70.0); PLATELET COUNT 366 TH/MM3 (150-450); RED BLOOD COUNT 4.53 MIL/MM3 (4.00-5.30); RED CELL DISTRIBUTION WIDTH 11.9 % (11.6-17.2); WHITE BLOOD COUNT 9.6 TH/MM3 (4.0-11.0)
[2017-04-28 06:26] LABS: BICARBONATE 20.7 MEQ/L (21.0-32.0); HDL CHOLESTEROL 52.4 MG/DL (40.0-60.0); POTASSIUM 4.9 MEQ/L (3.5-5.1)
[2017-04-28] MEDS: NICOTINE 21 MG/24 HR PATCH T-DERMAL SCH (07:20)
[2017-04-28] MEDS: REMOVE OLD PATCH T-DERMAL SCH (07:20)
[2017-04-28] MEDS: OLANZapine 5 MG TAB PO SCH ×3 (08:18→21:00)
[2017-04-28] MEDS: SERTRALINE HCL 50 MG TAB PO SCH ×2 (08:18→09:00)
[2017-04-28] MEDS: OLANZapine IM 10 MG VIAL IM SCH ×2 (09:00→21:00)
--- NOTE | 2017-04-28 09:04 | HHI.PR ---
Subjective Remarks in no acute distress. says that ' the shot doesn't go with my body'. no other complaints. d/w the RN and reportedly refused IV fluid and having her breakfast today. Objective Vitals Vital Signs Date Time Temp Pulse Resp B/P (MAP) Pulse Ox O2 Delivery O2 Flow Rate FiO2 04/27/17 17:59 72 16 150/82 (104) 98 I/O 04/27/17 04/27/17 04/27/17 04/28/17 04/28/17 04/28/17 07:00 15:00 23:00 07:00 15:00 23:00 Intake Total 240 ml 120 ml 440 ml 240 ml Balance 240 ml 120 ml 440 ml 240 ml Intake Oral 240 ml 120 ml 240 ml 240 ml IV Total 200 ml # Voids 2 3 Result Diagram: 04/28/17 0414 04/28/17 0414 Imaging Last Impressions Head CT 04/23/17 0000 Signed Impressions: Service Date/Time: Sunday, April 23, 2017 08:33 - CONCLUSION: Normal noncontrast head CT. Renato Dailey MD Objective Remarks GENERAL: This is a well-nourished, well-developed patient, in no apparent distress. otherwise the patient refused the physical exam at this point. Medications and IVs Current Medications Diphenhydramine HCl (Benadryl) 50 mg HS PRN PO INSOMNIA; Start 04/22/17 at 19: 30 Acetaminophen (Tylenol) 650 mg Q4H PRN PO Pain 1-5 or Temp >101F; Start at 19:30 Quetiapine Fumarate (SEROquel) 50 mg HS PO ; Start 04/22/17 at 21:00; Stop at 15:02; Status DC Flumazenil (Romazicon Inj) 0.2 mg Q1M PRN IV PUSH SEE LABEL COMMENTS; Start at 15:00 Lorazepam (Ativan) 1 mg Q4H PRN PO CIWA 8 - 10; Start 04/24/17 at 15:00 Lorazepam (Ativan Inj) 1 mg Q4H PRN IV PUSH CIWA 8 - 10 Last administered on t 02:13; Start 04/24/17 at 15:00 Lorazepam (Ativan) 2 mg Q2H PRN PO CIWA 11-14; Start 04/24/17 at 15:00 Lorazepam (Ativan Inj) 2 mg Q2H PRN IV PUSH CIWA 11-14; Start 04/24/17 at 15: 00 Lorazepam (Ativan Inj) 2 mg Q1H PRN IV PUSH CIWA 15-20; Start 04/24/17 at 15: 00 Lorazepam (Ativan Inj) 2 mg Q15M PRN IV PUSH CIWA > 20; Start 04/24/17 at 15: 00 Hydroxyzine HCl (Atarax) 25 mg Q8H PRN PO MODERATE TO SEVERE ANXIETY; Start at 15:00 Magnesium Hydroxide (Milk Of Magnesia Liq) 30 ml DAILY PRN PO CONSTIPATION; Start 04/24/17 at 15:00 Al Hydrox/Mg Hydrox/Simethicone (Mag-Al Plus Susp Liq) 30 ml Q6H PRN PO DYSPEPSIA; Start 04/24/17 at 15:00 Nicotine (Habitrol 21 Mg Patch.24 Hr) 1 patch DAILY T-DERMAL ; Start 04/24/17 at 15:00 Miscellaneous Information 1 DAILY T-DERMAL ; Start 04/25/17 at 09:00 Quetiapine Fumarate (SEROquel) 50 mg BID PO Last administered on 04/25/17 09: 07; Start 04/24/17 at 21:00; Stop 04/26/17 at 13:40; Status DC Sodium Chloride 1,000 ml @ 100 mls/hr Q10H IV Last administered on 04/25/17 05:00; Start 04/24/17 at 19:00; Stop 04/26/17 at 08:32; Status DC Sertraline HCl (Zoloft) 50 mg DAILY PO Last administered on 04/27/17 08:11; Start 04/25/17 at 09:15 Potassium Chloride 20 meq/ Sodium Chloride 1,010 ml @ 100 mls/hr Q10H6M IV ; Start 04/26/17 at 19:00; Stop 04/26/17 at 19:00; Status DC Potassium Chloride/Sodium Chloride 1,000 ml @ 100 mls/hr Q10H IV Last administered on 04/27/17 14:11; Start 04/26/17 at 08:45 Olanzapine (ZyPREXA) 5 mg Q12HR PO Last administered on 04/27/17 08:14; Start 04/26/17 at 21:00 Olanzapine (ZyPREXA INJ) 5 mg Q12HR IM Last administered on 04/27/17 21:00; Start 04/26/17 at 21:00 A/P Problem List: (1) History of hepatitis C ICD Code: Z86.19 - Personal history of other infectious and parasitic diseases Status: Chronic (2) HIV disease ICD Code: B20 - Human immunodeficiency virus [HIV] disease Status: Chronic (3) Leukocytosis ICD Code: D72.829 - Elevated white blood cell count, unspecified Status: Acute (4) Altered mental status ICD Code: R41.82 - Altered mental status, unspecified Assessment and Plan A/P Altered mental status-likely psychiatric- CT scan of the head reviewed, unremarkable. No intervention for now. ABG is unremarkable. Urine tox screen negative psych following. HIV/Hepatitis C - follow-up as outpatient. ID consult appreciated; antiretroviral will be resumed as outpatient. CD4 count 472. Leukocytosis-resolved, no signs of infection- Chronic renal failure- stable. mild hypokalemia; replaced. Mild AST elevation-improved. DVT prophylaxis: Low risk. Problem Qualifiers (1) Leukocytosis: Qualified Codes: D72.829 - Elevated white blood cell count, unspecified Humberto Pinto MD Apr 28, 2017 09:04
--- NOTE | 2017-04-28 11:36 | HHI.PYPN ---
Subjective Chief Complaint: patient unresponsive flaccid Remarks Patient seen follow up, chart reviewed. Discussion with staff reported the patient continues to refuse care, continues IV hydration is noted to be drinking water from the faucet and refusing medications; patient not eating. Patient found lying in hospital bed with covers over her head but was able to engage minimally and superficially cooperative. Patient noted to be upset that she has been given medications I am not supposed by mouth and it was reiterated to patient that patient has an option to taking by mouth but will be required to have medication administered her via IM if she refuses this at this time does not have capacity to participate in medical decision making. Patient noted to have shower today but continues to not eat and when asked why she is not eating patient refuses to answer. Patient states that he is only willing to take Wellbutrin and nothing else. Patient initially refuses by mouth medication but then reluctantly accepted taken by mouth. When attempted to continue conversation patient patient dismisses lyric writer. Review of Systems Except as stated in HPI: all other systems reviewed are Neg Mental Status Examination Appearance: Other (recently showered) Consciousness: Alert Orientation: Person Motor Activity: Normal gait Speech: Unremarkable Language: Other (refusing to speak) Fund of Knowledge: Inadequate Attention and Concentration: Inadequate Memory: Impaired Mood: Irritable Affect: Irritable, Other (dismissive) Thought Process & Associations: Other (concrete) Thought Content: Preoccupations (perseverative on taking only Wellbutrin) Hallucination Type: None (unable to assess this patient's refusing to cooperate interview) Delusion Type: None (unable to assess this patient's refusing to cooperate interview) Suicidal Ideation: No Suicidal Plan: No Suicidal Intention: No Homicidal Ideation: No Homicidal Plan: No Homicidal Intention: No Insight: Poor Judgment: Poor Results Labs Labs reviewed. Test 04/28/17 04:14 White Blood Count 9.6 TH/MM3 Red Blood Count 4.53 MIL/MM3 Hemoglobin 15.6 GM/DL Hematocrit 45.8 % Mean Corpuscular Volume 101.0 FL Mean Corpuscular Hemoglobin 34.4 PG Mean Corpuscular Hemoglobin Concent 34.0 % Red Cell Distribution Width 11.9 % Platelet Count 366 TH/MM3 Mean Platelet Volume 7.7 FL Neutrophils (%) (Auto) 72.7 % Lymphocytes (%) (Auto) 16.0 % Monocytes (%) (Auto) 8.6 % Eosinophils (%) (Auto) 1.8 % Basophils (%) (Auto) 0.9 % Neutrophils # (Auto) 7.0 TH/MM3 Lymphocytes # (Auto) 1.5 TH/MM3 Monocytes # (Auto) 0.8 TH/MM3 Eosinophils # (Auto) 0.2 TH/MM3 Basophils # (Auto) 0.1 TH/MM3 CBC Comment DIFF FINAL Differential Comment Blood Urea Nitrogen 12 MG/DL Creatinine 1.08 MG/DL Random Glucose 72 MG/DL Calcium Level 9.6 MG/DL Sodium Level 139 MEQ/L Potassium Level 4.9 MEQ/L Chloride Level 104 MEQ/L Carbon Dioxide Level 20.7 MEQ/L Anion Gap 14 MEQ/L Estimat Glomerular Filtration Rate 53 ML/MIN Triglycerides Level 123 MG/DL Cholesterol Level 243 MG/DL LDL Cholesterol 166 MG/DL HDL Cholesterol 52.4 MG/DL Cholesterol/HDL Ratio 4.63 RATIO Vitals/IOs Vital Signs Date Time Temp Pulse Resp B/P (MAP) Pulse Ox O2 Delivery O2 Flow Rate FiO2 04/27/17 17:59 72 16 150/82 (104) 98 04/27/17 05:39 97.4 Intake and Output 04/28/17 04/28/17 04/29/17 08:00 16:00 00:00 Intake Total 240 ml Balance 240 ml Assessment & Plan Problem List: (1) Unspecified psychosis ICD Codes: F29 - Unspecified psychosis not due to a substance or known physiological condition (2) Altered mental status ICD Codes: R41.82 - Altered mental status, unspecified (3) 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 Patient continues not to eat but is noted to drink water from the fossa. Patient continues to refuse medications, continues with poor insight and judgment but noted to engage more today and noted to have taken a shower. We'll continue current treatment for now as patient appears to be somewhat responding. Continue to encourage patient to maintain personal hygiene and to have nutritional intake patient had been refusing to eat. Discharge planning in progress Justification for Cont. Inpt. At risk for further decompensation if at lower level of care Discharge Planning Patient at discharge back home or with mother once psychiatrically stable Request HC Surrog/Guard Advoc?: Yes Heriberto Narayanan MD Apr 28, 2017 11:36
[2017-04-29] MEDS: NS + KCL 20 MEQ INJ 1,000 ML IV SCH ×2 (06:21→17:01)
[2017-04-29 07:38] VITALS: BP 146/91; PULSE 98; RESP 17; O2SAT 96
--- NOTE | 2017-04-29 09:27 | HHI.PR ---
Subjective Remarks in no distress. but is not cooperative and not responding to my questions. Objective Vitals Vital Signs Date Time Temp Pulse Resp B/P (MAP) Pulse Ox O2 Delivery O2 Flow Rate FiO2 04/29/17 07:38 98 17 146/91 (109) 96 I/O 04/28/17 04/28/17 04/28/17 04/29/17 04/29/17 04/29/17 07:00 15:00 23:00 07:00 15:00 23:00 Intake Total 240 ml 0 ml 0 ml Balance 240 ml 0 ml 0 ml Intake Oral 240 ml 0 ml 0 ml # Voids 1 3 1 Result Diagram: 04/28/17 0414 04/28/17 0414 Imaging Last Impressions Head CT 04/23/17 0000 Signed Impressions: Service Date/Time: Sunday, April 23, 2017 08:33 - CONCLUSION: Normal noncontrast head CT. Renato Dailey MD Objective Remarks GENERAL: This is a well-nourished, well-developed patient, in no apparent distress. otherwise the patient refused the physical exam at this point. Medications and IVs Current Medications Diphenhydramine HCl (Benadryl) 50 mg HS PRN PO INSOMNIA; Start 04/22/17 at 19: 30 Acetaminophen (Tylenol) 650 mg Q4H PRN PO Pain 1-5 or Temp >101F; Start at 19:30 Quetiapine Fumarate (SEROquel) 50 mg HS PO ; Start 04/22/17 at 21:00; Stop at 15:02; Status DC Flumazenil (Romazicon Inj) 0.2 mg Q1M PRN IV PUSH SEE LABEL COMMENTS; Start at 15:00 Lorazepam (Ativan) 1 mg Q4H PRN PO CIWA 8 - 10; Start 04/24/17 at 15:00 Lorazepam (Ativan Inj) 1 mg Q4H PRN IV PUSH CIWA 8 - 10 Last administered on t 02:13; Start 04/24/17 at 15:00 Lorazepam (Ativan) 2 mg Q2H PRN PO CIWA 11-14; Start 04/24/17 at 15:00 Lorazepam (Ativan Inj) 2 mg Q2H PRN IV PUSH CIWA 11-14; Start 04/24/17 at 15: 00 Lorazepam (Ativan Inj) 2 mg Q1H PRN IV PUSH CIWA 15-20; Start 04/24/17 at 15: 00 Lorazepam (Ativan Inj) 2 mg Q15M PRN IV PUSH CIWA > 20; Start 04/24/17 at 15: 00 Hydroxyzine HCl (Atarax) 25 mg Q8H PRN PO MODERATE TO SEVERE ANXIETY; Start at 15:00 Magnesium Hydroxide (Milk Of Magnesia Liq) 30 ml DAILY PRN PO CONSTIPATION; Start 04/24/17 at 15:00 Al Hydrox/Mg Hydrox/Simethicone (Mag-Al Plus Susp Liq) 30 ml Q6H PRN PO DYSPEPSIA; Start 04/24/17 at 15:00 Nicotine (Habitrol 21 Mg Patch.24 Hr) 1 patch DAILY T-DERMAL ; Start 04/24/17 at 15:00 Miscellaneous Information 1 DAILY T-DERMAL ; Start 04/25/17 at 09:00 Quetiapine Fumarate (SEROquel) 50 mg BID PO Last administered on 04/25/17 09: 07; Start 04/24/17 at 21:00; Stop 04/26/17 at 13:40; Status DC Sodium Chloride 1,000 ml @ 100 mls/hr Q10H IV Last administered on 04/25/17 05:00; Start 04/24/17 at 19:00; Stop 04/26/17 at 08:32; Status DC Sertraline HCl (Zoloft) 50 mg DAILY PO Last administered on 04/28/17 09:00; Start 04/25/17 at 09:15 Potassium Chloride 20 meq/ Sodium Chloride 1,010 ml @ 100 mls/hr Q10H6M IV ; Start 04/26/17 at 19:00; Stop 04/26/17 at 19:00; Status DC Potassium Chloride/Sodium Chloride 1,000 ml @ 100 mls/hr Q10H IV Last administered on 04/27/17 14:11; Start 04/26/17 at 08:45 Olanzapine (ZyPREXA) 5 mg Q12HR PO Last administered on 04/28/17 09:00; Start 04/26/17 at 21:00 Olanzapine (ZyPREXA INJ) 5 mg Q12HR IM Last administered on 04/28/17t 21:00; Start 04/26/17 at 21:00 A/P Problem List: (1) History of hepatitis C ICD Code: Z86.19 - Personal history of other infectious and parasitic diseases Status: Chronic (2) HIV disease ICD Code: B20 - Human immunodeficiency virus [HIV] disease Status: Chronic (3) Leukocytosis ICD Code: D72.829 - Elevated white blood cell count, unspecified Status: Acute (4) Altered mental status ICD Code: R41.82 - Altered mental status, unspecified Assessment and Plan A/P psychosis- management per psych. HIV/Hepatitis C - follow-up as outpatient. ID consult appreciated; antiretroviral will be resumed as outpatient. CD4 count 472. Leukocytosis-resolved, no signs of infection- Chronic renal failure- stable. mild hypokalemia; replaced. Mild AST elevation-improved. DVT prophylaxis: Low risk. Problem Qualifiers (1) Leukocytosis: Qualified Codes: D72.829 - Elevated white blood cell count, unspecified Humberto Pinto MD Apr 29, 2017 09:27
[2017-04-29] MEDS: SERTRALINE HCL 50 MG TAB PO SCH (09:38)
[2017-04-29] MEDS: REMOVE OLD PATCH T-DERMAL SCH (09:38)
[2017-04-29] MEDS: OLANZapine 5 MG TAB PO SCH ×2 (09:38→21:00)
[2017-04-29] MEDS: NICOTINE 21 MG/24 HR PATCH T-DERMAL SCH (09:38)
[2017-04-29] MEDS: OLANZapine IM 10 MG VIAL IM SCH ×2 (09:52→21:00)
--- NOTE | 2017-04-29 15:55 | HHI.PYPN ---
Subjective Chief Complaint: patient unresponsive flaccid Remarks Pt remains oppositional, refusing medication per nursing, refusing interview with me. Laying calmly in bed, volitionally mute, seen by nursing getting up to get water. Mental Status Examination Appearance: Other (recently showered) Consciousness: Alert Orientation: Person Motor Activity: Normal gait Speech: Unremarkable Language: Other (refusing to speak) Fund of Knowledge: Inadequate Attention and Concentration: Inadequate Memory: Impaired Mood: Irritable Affect: Irritable, Other (dismissive) Thought Process & Associations: Other (concrete) Thought Content: Preoccupations (perseverative on taking only Wellbutrin) Hallucination Type: None (unable to assess this patient's refusing to cooperate interview) Delusion Type: None (unable to assess this patient's refusing to cooperate interview) Suicidal Ideation: No Suicidal Plan: No Suicidal Intention: No Homicidal Ideation: No Homicidal Plan: No Homicidal Intention: No Insight: Poor Judgment: Poor Results Vitals/IOs Vital Signs Date Time Temp Pulse Resp B/P (MAP) Pulse Ox O2 Delivery O2 Flow Rate FiO2 04/29/17 07:38 98 17 146/91 (109) 96 04/27/17 05:39 97.4 Intake and Output 04/29/17 04/29/17 04/30/17 08:00 16:00 00:00 Intake Total 0 ml Balance 0 ml Assessment & Plan Problem List: (1) Unspecified psychosis ICD Codes: F29 - Unspecified psychosis not due to a substance or known physiological condition (2) Altered mental status ICD Codes: R41.82 - Altered mental status, unspecified (3) 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 Inpt. Pt would decompensate in a less restrictive setting. Request HC Surrog/Guard Advoc?: Yes Carlos Manuel Jeffrey DO Apr 29, 2017 15:55
[2017-04-30] MEDS: NS + KCL 20 MEQ INJ 1,000 ML IV SCH (02:19)
[2017-04-30] MEDS: SERTRALINE HCL 50 MG TAB PO SCH (09:16)
[2017-04-30] MEDS: OLANZapine 5 MG TAB PO SCH ×2 (09:16→21:00)
[2017-04-30] MEDS: NICOTINE 21 MG/24 HR PATCH T-DERMAL SCH (09:16)
[2017-04-30] MEDS: REMOVE OLD PATCH T-DERMAL SCH (09:16)
[2017-04-30] MEDS: OLANZapine IM 10 MG VIAL IM SCH ×2 (09:19→21:00)
--- NOTE | 2017-04-30 10:01 | HHI.PR ---
Subjective Remarks in no acute distress. still not responding to my questions. refusing her po meds. d/w the RN. Objective Vitals I/O 04/29/17 04/29/17 04/29/17 04/30/17 04/30/17 04/30/17 07:00 15:00 23:00 07:00 15:00 23:00 Intake Total 0 ml 0 ml 360 ml Balance 0 ml 0 ml 360 ml Intake Oral 0 ml 0 ml 360 ml # Voids 1 1 Result Diagram: 04/28/17 0414 04/28/17 0414 Imaging Last Impressions Head CT 04/23/17 0000 Signed Impressions: Service Date/Time: Sunday, April 23, 2017 08:33 - CONCLUSION: Normal noncontrast head CT. Renato Dailey MD Objective Remarks GENERAL: This is a well-nourished, well-developed patient, in no apparent distress. otherwise the patient refused the physical exam at this point. Medications and IVs Current Medications Diphenhydramine HCl (Benadryl) 50 mg HS PRN PO INSOMNIA; Start 04/22/17 at 19: 30 Acetaminophen (Tylenol) 650 mg Q4H PRN PO Pain 1-5 or Temp >101F; Start at 19:30 Quetiapine Fumarate (SEROquel) 50 mg HS PO ; Start 04/22/17 at 21:00; Stop at 15:02; Status DC Flumazenil (Romazicon Inj) 0.2 mg Q1M PRN IV PUSH SEE LABEL COMMENTS; Start at 15:00 Lorazepam (Ativan) 1 mg Q4H PRN PO CIWA 8 - 10; Start 04/24/17 at 15:00 Lorazepam (Ativan Inj) 1 mg Q4H PRN IV PUSH CIWA 8 - 10 Last administered on t 02:13; Start 04/24/17 at 15:00 Lorazepam (Ativan) 2 mg Q2H PRN PO CIWA 11-14; Start 04/24/17 at 15:00 Lorazepam (Ativan Inj) 2 mg Q2H PRN IV PUSH CIWA 11-14; Start 04/24/17 at 15: 00 Lorazepam (Ativan Inj) 2 mg Q1H PRN IV PUSH CIWA 15-20; Start 04/24/17 at 15: 00 Lorazepam (Ativan Inj) 2 mg Q15M PRN IV PUSH CIWA > 20; Start 04/24/17 at 15: 00 Hydroxyzine HCl (Atarax) 25 mg Q8H PRN PO MODERATE TO SEVERE ANXIETY; Start at 15:00 Magnesium Hydroxide (Milk Of Magnesia Liq) 30 ml DAILY PRN PO CONSTIPATION; Start 04/24/17 at 15:00 Al Hydrox/Mg Hydrox/Simethicone (Mag-Al Plus Susp Liq) 30 ml Q6H PRN PO DYSPEPSIA; Start 04/24/17 at 15:00 Nicotine (Habitrol 21 Mg Patch.24 Hr) 1 patch DAILY T-DERMAL ; Start 04/24/17 at 15:00 Miscellaneous Information 1 DAILY T-DERMAL ; Start 04/25/17 at 09:00 Quetiapine Fumarate (SEROquel) 50 mg BID PO Last administered on 04/25/17 09: 07; Start 04/24/17 at 21:00; Stop 04/26/17 at 13:40; Status DC Sodium Chloride 1,000 ml @ 100 mls/hr Q10H IV Last administered on 04/25/17 05:00; Start 04/24/17 at 19:00; Stop 04/26/17 at 08:32; Status DC Sertraline HCl (Zoloft) 50 mg DAILY PO Last administered on 04/28/17 09:00; Start 04/25/17 at 09:15 Potassium Chloride 20 meq/ Sodium Chloride 1,010 ml @ 100 mls/hr Q10H6M IV ; Start 04/26/17 at 19:00; Stop 04/26/17 at 19:00; Status DC Potassium Chloride/Sodium Chloride 1,000 ml @ 100 mls/hr Q10H IV Last administered on 04/27/17 14:11; Start 04/26/17 at 08:45 Olanzapine (ZyPREXA) 5 mg Q12HR PO Last administered on 04/28/17 09:00; Start 04/26/17 at 21:00 Olanzapine (ZyPREXA INJ) 5 mg Q12HR IM Last administered on 04/30/17 09:19; Start 04/26/17 at 21:00 A/P Problem List: (1) History of hepatitis C ICD Code: Z86.19 - Personal history of other infectious and parasitic diseases Status: Chronic (2) HIV disease ICD Code: B20 - Human immunodeficiency virus [HIV] disease Status: Chronic (3) Leukocytosis ICD Code: D72.829 - Elevated white blood cell count, unspecified Status: Acute (4) Altered mental status ICD Code: R41.82 - Altered mental status, unspecified Assessment and Plan A/P psychosis- management per psych. HIV/Hepatitis C - follow-up as outpatient. ID consult appreciated; antiretroviral will be resumed as outpatient. CD4 count 472. Leukocytosis-resolved, no signs of infection- Chronic renal failure- stable. mild hypokalemia; replaced. Mild AST elevation-improved. DVT prophylaxis: Low risk. Problem Qualifiers (1) Leukocytosis: Qualified Codes: D72.829 - Elevated white blood cell count, unspecified Humberto Pinto MD Apr 30, 2017 10:01
[2017-04-30] MEDS: SODIUM CHLOR 0.9% 1000 ML INJ 1,000 ML IV SCH ×2 (10:16→22:00)
--- NOTE | 2017-04-30 15:04 | HHI.PYPN ---
Subjective Chief Complaint: patient unresponsive flaccid Remarks Pt was seen and case discussed with nursing. Pt remains oppositional, voluntarily mute. Techs saw her get up for water and to use the bathroom. Not eating for past 2-3 days. Getting IM medication. Mental Status Examination Appearance: Other (recently showered) Consciousness: Alert Orientation: Person Motor Activity: Normal gait Speech: Unremarkable Language: Other (refusing to speak) Fund of Knowledge: Inadequate Attention and Concentration: Inadequate Memory: Impaired Mood: Irritable Affect: Irritable, Other (dismissive) Thought Process & Associations: Other (concrete) Thought Content: Preoccupations (perseverative on taking only Wellbutrin) Hallucination Type: None (unable to assess this patient's refusing to cooperate interview) Delusion Type: None (unable to assess this patient's refusing to cooperate interview) Suicidal Ideation: No Suicidal Plan: No Suicidal Intention: No Homicidal Ideation: No Homicidal Plan: No Homicidal Intention: No Insight: Poor Judgment: Poor Results Vitals/IOs Vital Signs Date Time Temp Pulse Resp B/P (MAP) Pulse Ox O2 Delivery O2 Flow Rate FiO2 04/29/17 07:38 98 17 146/91 (109) 96 04/27/17 05:39 97.4 Intake and Output 04/30/17 04/30/17 05/01/17 08:00 16:00 00:00 Intake Total 360 ml Balance 360 ml Assessment & Plan Problem List: (1) Unspecified psychosis ICD Codes: F29 - Unspecified psychosis not due to a substance or known physiological condition (2) Altered mental status ICD Codes: R41.82 - Altered mental status, unspecified (3) 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 Justification for Cont. Inpt. Pt would decompensate in a less restrictive setting. Request HC Surrog/Guard Advoc?: Yes Carlos Manuel Jeffrey DO Apr 30, 2017 15:04
[2017-05-01 06:13] VITALS: BP 112/64; PULSE 66; RESP 17; TEMP 97.1
[2017-05-01] MEDS: SODIUM CHLOR 0.9% 1000 ML INJ 1,000 ML IV SCH ×2 (06:38→16:00)
[2017-05-01] MEDS: NICOTINE 21 MG/24 HR PATCH T-DERMAL SCH (09:00)
[2017-05-01] MEDS: OLANZapine 5 MG TAB PO SCH ×2 (09:00→21:00)
[2017-05-01] MEDS: OLANZapine IM 10 MG VIAL IM SCH ×2 (09:00→22:06)
[2017-05-01] MEDS: REMOVE OLD PATCH T-DERMAL SCH (09:00)
[2017-05-01] MEDS: SERTRALINE HCL 50 MG TAB PO SCH (09:00)
--- NOTE | 2017-05-01 09:03 | HHI.PYPN ---
Subjective Chief Complaint: patient unresponsive flaccid Remarks Patient seen for follow, chart reviewed. Discussion with nursing staff reported that the patient has had weight loss (113 to 76 lbs) since admission, continues to refuse medications, not eating or showering. Patient found lying on hospital bed with covers over her head and refusing to reveal her head but covers were pulled back to see her face which she had her eyes closed throughout interview. Patient refused engage in interview, noted to be alert but refusing to respond. Patient was encouraged to continue treatment, perform ADLs, and start eating. Patient was also advised that she needed to call the animal fpc in regards to her dog but did not respond. Staff reported that patient was provided with a letter regarding her dog which she threw to the floor and refused to engage in conversation. Review of Systems Except as stated in HPI: all other systems reviewed are Neg Mental Status Examination Appearance: Other (recently showered) Consciousness: Alert Orientation: Person Motor Activity: Normal gait Speech: Unremarkable Language: Other (refusing to speak) Fund of Knowledge: Inadequate Attention and Concentration: Inadequate Memory: Impaired Mood: Irritable Affect: Irritable, Other (dismissive) Thought Process & Associations: Other (concrete) Thought Content: Preoccupations (perseverative on taking only Wellbutrin) Hallucination Type: None (unable to assess this patient's refusing to cooperate interview) Delusion Type: None (unable to assess this patient's refusing to cooperate interview) Suicidal Ideation: No Suicidal Plan: No Suicidal Intention: No Homicidal Ideation: No Homicidal Plan: No Homicidal Intention: No Insight: Poor Judgment: Poor Results Vitals/IOs Vital Signs Date Time Temp Pulse Resp B/P (MAP) Pulse Ox O2 Delivery O2 Flow Rate FiO2 05/01/17 06:13 97.1 66 17 112/64 (80) 04/29/17 07:38 96 Intake and Output 05/01/17 05/01/17 05/02/17 08:00 16:00 00:00 Intake Total 753 ml Balance 753 ml Assessment & Plan Problem List: (1) Unspecified psychosis ICD Codes: F29 - Unspecified psychosis not due to a substance or known physiological condition (2) Altered mental status ICD Codes: R41.82 - Altered mental status, unspecified (3) 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 Will order labs today. We'll obtain consent from healthcare surrogate for a temporary hold to obtain labs. Continue current treatment for now but will consider increasing antipsychotic after medically stable to continue treatment over objection. Recommendation as per primary medical team. Discharge planning in progress Justification for Cont. Inpt. At risk for further decompensation if at lower level of care Discharge Planning Patient Pro back to her residence or be discharged back to her mother once psychiatrically stable. Request HC Surrog/Guard Advoc?: Yes Heriberto Narayanan MD May 01, 2017 09:03
--- NOTE | 2017-05-01 09:54 | HHI.PR ---
Subjective Remarks in no acute distress. not responding to my questions. refusing care. Objective Vitals Vital Signs Date Time Temp Pulse Resp B/P (MAP) Pulse Ox O2 Delivery O2 Flow Rate FiO2 05/01/17 06:13 97.1 66 17 112/64 (80) I/O 04/30/17 04/30/17 04/30/17 05/01/17 05/01/17 05/01/17 07:00 15:00 23:00 07:00 15:00 23:00 Intake Total 360 ml 0 ml 753 ml Balance 360 ml 0 ml 753 ml Intake Oral 360 ml 0 ml 0 ml IV Total 753 ml # Voids 1 1 1 # Bowel Movements 0 0 Result Diagram: 04/28/17 0414 04/28/17 0414 Imaging Last Impressions Head CT 04/23/17 0000 Signed Impressions: Service Date/Time: Sunday, April 23, 2017 08:33 - CONCLUSION: Normal noncontrast head CT. Renato Dailey MD Objective Remarks GENERAL: This is a well-nourished, well-developed patient, in no apparent distress. otherwise the patient refused the physical exam at this point. Medications and IVs Current Medications Diphenhydramine HCl (Benadryl) 50 mg HS PRN PO INSOMNIA; Start 04/22/17 at 19: 30 Acetaminophen (Tylenol) 650 mg Q4H PRN PO Pain 1-5 or Temp >101F; Start at 19:30 Quetiapine Fumarate (SEROquel) 50 mg HS PO ; Start 04/22/17 at 21:00; Stop at 15:02; Status DC Flumazenil (Romazicon Inj) 0.2 mg Q1M PRN IV PUSH SEE LABEL COMMENTS; Start at 15:00 Lorazepam (Ativan) 1 mg Q4H PRN PO CIWA 8 - 10; Start 04/24/17 at 15:00 Lorazepam (Ativan Inj) 1 mg Q4H PRN IV PUSH CIWA 8 - 10 Last administered on t 02:13; Start 04/24/17 at 15:00 Lorazepam (Ativan) 2 mg Q2H PRN PO CIWA 11-14; Start 04/24/17 at 15:00 Lorazepam (Ativan Inj) 2 mg Q2H PRN IV PUSH CIWA 11-14; Start 04/24/17 at 15: 00 Lorazepam (Ativan Inj) 2 mg Q1H PRN IV PUSH CIWA 15-20; Start 04/24/17 at 15: 00 Lorazepam (Ativan Inj) 2 mg Q15M PRN IV PUSH CIWA > 20; Start 04/24/17 at 15: 00 Hydroxyzine HCl (Atarax) 25 mg Q8H PRN PO MODERATE TO SEVERE ANXIETY; Start at 15:00 Magnesium Hydroxide (Milk Of Magnesia Liq) 30 ml DAILY PRN PO CONSTIPATION; Start 04/24/17 at 15:00 Al Hydrox/Mg Hydrox/Simethicone (Mag-Al Plus Susp Liq) 30 ml Q6H PRN PO DYSPEPSIA; Start 04/24/17 at 15:00 Nicotine (Habitrol 21 Mg Patch.24 Hr) 1 patch DAILY T-DERMAL ; Start 04/24/17 at 15:00 Miscellaneous Information 1 DAILY T-DERMAL ; Start 04/25/17 at 09:00 Quetiapine Fumarate (SEROquel) 50 mg BID PO Last administered on 04/25/17 09: 07; Start 04/24/17 at 21:00; Stop 04/26/17 at 13:40; Status DC Sodium Chloride 1,000 ml @ 100 mls/hr Q10H IV Last administered on 04/25/17 05:00; Start 04/24/17 at 19:00; Stop 04/26/17 at 08:32; Status DC Sertraline HCl (Zoloft) 50 mg DAILY PO Last administered on 04/28/17 09:00; Start 04/25/17 at 09:15 Potassium Chloride 20 meq/ Sodium Chloride 1,010 ml @ 100 mls/hr Q10H6M IV ; Start 04/26/17 at 19:00; Stop 04/26/17 at 19:00; Status DC Potassium Chloride/Sodium Chloride 1,000 ml @ 100 mls/hr Q10H IV Last administered on 04/27/17 14:11; Start 04/26/17 at 08:45; Stop 04/30/17 at 10 :00; Status DC Olanzapine (ZyPREXA) 5 mg Q12HR PO Last administered on 04/28/17 09:00; Start 04/26/17 at 21:00 Olanzapine (ZyPREXA INJ) 5 mg Q12HR IM Last administered on 05/01/17 09:00; Start 04/26/17 at 21:00 Sodium Chloride 1,000 ml @ 100 mls/hr Q10H IV Last administered on 05/01/17 06:38; Start 04/30/17 at 10:00 A/P Problem List: (1) History of hepatitis C ICD Code: Z86.19 - Personal history of other infectious and parasitic diseases Status: Chronic (2) HIV disease ICD Code: B20 - Human immunodeficiency virus [HIV] disease Status: Chronic (3) Leukocytosis ICD Code: D72.829 - Elevated white blood cell count, unspecified Status: Acute (4) Altered mental status ICD Code: R41.82 - Altered mental status, unspecified Assessment and Plan A/P psychosis- management per psych. HIV/Hepatitis C - follow-up as outpatient. ID consult appreciated; antiretroviral will be resumed as outpatient. CD4 count 472. Leukocytosis-resolved, no signs of infection- Chronic renal failure- stable. repeat BMP today pending. mild hypokalemia; replaced. Mild AST elevation-improved. DVT prophylaxis: Low risk. Problem Qualifiers (1) Leukocytosis: Qualified Codes: D72.829 - Elevated white blood cell count, unspecified Humberto Pinto MD May 01, 2017 09:53
[2017-05-01 11:42] LABS: AUTOMATED NEUTROPHIL # 3.2 TH/MM3 (1.8-7.7); BASOPHIL # 0.1 TH/MM3 (0-0.2); BASOPHIL % 1.3 % (0.0-2.0); EOSINOPHIL # 0.2 TH/MM3 (0-0.4); EOSINOPHIL % 3.3 % (0.0-4.0); HEMATOCRIT 38.1 % (35.0-46.0); HEMO FLAGS DIFF FINAL; LYMPH % 22.4 % (9.0-44.0); LYMPHOCYTE # 1.2 TH/MM3 (1.0-4.8); MEAN CELL VOLUME 99.8 FL (80.0-100.0); MEAN CORPUSCULAR HEMOGLOBIN 35.9 PG (27.0-34.0); MEAN CORPUSCULAR HGB CONC 35.9 % (32.0-36.0); MONO % 11.1 % (0.0-8.0); NEUT % 61.9 % (16.0-70.0); PLATELET COUNT 290 TH/MM3 (150-450); RED BLOOD COUNT 3.82 MIL/MM3 (4.00-5.30); RED CELL DISTRIBUTION WIDTH 11.9 % (11.6-17.2); WHITE BLOOD COUNT 5.2 TH/MM3 (4.0-11.0)
[2017-05-01 12:03] LABS: BICARBONATE 23.6 MEQ/L (21.0-32.0); POTASSIUM 3.6 MEQ/L (3.5-5.1)
[2017-05-01 12:10] LABS: INDIRECT BILIRUBIN 0.5 MG/DL (0.0-0.8); TOTAL BILIRUBIN ADULT 0.6 MG/DL (0.2-1.0)
--- NOTE | 2017-05-01 12:48 | PD.TTN ---
Patient Problems 1. Discharge planning 2. Medication compliance 3. Knowledge deficit 4. Lack of coping skills Progress Toward Goals Provider Present: Dr. Sol Narayanan Provider Input: 05/01/2017 Per treating doctor, patient is refusing treatment, care, has not maintained any hygiene, not eating and has had significant weight loss due to the same. Will order labs today. Per doctor he will obtain consent from healthcare surrogate, and will continue current treatment with an increase antipsychotic after medically stable. Nurse(s) Present: QUIANA Lawrence Nurse(s) Input: 05/01/2017 Per nurse, patient has been minimally interactive with staff. Patient is isolating and keeps her blanket completely covering her head. Patient is not eating or taking her medication Psychiatric Counselors Present: CLEMENCIA Pina Psych Therapist Input: 05/01/2017 Patient is encouraged with meals, medication and group/activities Patient will assess with patient treatment goals and plans Group Spec/RT/OT/VARGAS Present: Jack Cuenca OT Group Spec/RT/OT/VARGAS Input: 05/01/2017; per OT patient is encouraged with activities; however she is refusing Patient will assess with patient treatment goals and plans Documentation Scribe: CLEMENCIA Pina Sandra LMHC May 01, 2017 12:48
[2017-05-01 18:02] VITALS: BP 120/69; PULSE 83; RESP 17; O2SAT 96
[2017-05-02] MEDS: SODIUM CHLOR 0.9% 1000 ML INJ 1,000 ML IV SCH ×3 (02:18→23:14)
[2017-05-02 06:02] VITALS: BP 127/85; PULSE 72; RESP 16; TEMP 97.8
--- NOTE | 2017-05-02 08:36 | HHI.PYPN ---
Subjective Chief Complaint: patient unresponsive flaccid Remarks Patient seen for follow up, chart reviewed. Discussion she staff reported the patient continues refuse medications, continues to eat meals is noted to be alert with staff attempts to interact with patient. Patient is also noted to stand up disturbances of water from the hospital as well as go to the restrooms at times. Patient continues to refuse by mouth medications and is receiving treatment via IM administration. Patient continues to refuse to interact or engage in interview with ticket writer and nurse today but has been allowing to receive IV fluids and have recent lab work drawn recently. Review of Systems Except as stated in HPI: all other systems reviewed are Neg Mental Status Examination Appearance: Disheveled, Malodorous Consciousness: Alert Orientation: Person Motor Activity: Normal gait Speech: Unremarkable Language: Other (refusing to speak) Fund of Knowledge: Inadequate Attention and Concentration: Inadequate Memory: Impaired Mood: Irritable Affect: Irritable, Other (dismissive) Thought Process & Associations: Other (concrete) Thought Content: Preoccupations (perseverative on taking only Wellbutrin) Hallucination Type: None (unable to assess this patient's refusing to cooperate interview) Delusion Type: None (unable to assess this patient's refusing to cooperate interview) Suicidal Ideation: No Suicidal Plan: No Suicidal Intention: No Homicidal Ideation: No Homicidal Plan: No Homicidal Intention: No Insight: Poor Judgment: Poor Results Labs Labs reviewed. Test 05/01/17 11:11 White Blood Count 5.2 TH/MM3 Red Blood Count 3.82 MIL/MM3 Hemoglobin 13.7 GM/DL Hematocrit 38.1 % Mean Corpuscular Volume 99.8 FL Mean Corpuscular Hemoglobin 35.9 PG Mean Corpuscular Hemoglobin Concent 35.9 % Red Cell Distribution Width 11.9 % Platelet Count 290 TH/MM3 Mean Platelet Volume 7.8 FL Neutrophils (%) (Auto) 61.9 % Lymphocytes (%) (Auto) 22.4 % Monocytes (%) (Auto) 11.1 % Eosinophils (%) (Auto) 3.3 % Basophils (%) (Auto) 1.3 % Neutrophils # (Auto) 3.2 TH/MM3 Lymphocytes # (Auto) 1.2 TH/MM3 Monocytes # (Auto) 0.6 TH/MM3 Eosinophils # (Auto) 0.2 TH/MM3 Basophils # (Auto) 0.1 TH/MM3 CBC Comment DIFF FINAL Differential Comment Blood Urea Nitrogen 22 MG/DL Creatinine 1.03 MG/DL Random Glucose 60 MG/DL Total Protein 6.4 GM/DL Albumin 3.3 GM/DL Calcium Level 8.6 MG/DL Alkaline Phosphatase 41 U/L Aspartate Amino Transf (AST/SGOT) 18 U/L Alanine Aminotransferase (ALT/SGPT) 31 U/L Total Bilirubin 0.6 MG/DL Direct Bilirubin 0.1 MG/DL Sodium Level 142 MEQ/L Potassium Level 3.6 MEQ/L Chloride Level 107 MEQ/L Carbon Dioxide Level 23.6 MEQ/L Anion Gap 11 MEQ/L Estimat Glomerular Filtration Rate 56 ML/MIN Indirect Bilirubin 0.5 MG/DL Total Creatine Kinase 70 U/L Vitals/IOs Vital Signs Date Time Temp Pulse Resp B/P (MAP) Pulse Ox O2 Delivery O2 Flow Rate FiO2 05/02/17 06:02 97.8 72 16 127/85 (99) 05/01/17 18:02 96 Assessment & Plan Problem List: (1) Unspecified psychosis ICD Codes: F29 - Unspecified psychosis not due to a substance or known physiological condition (2) Altered mental status ICD Codes: R41.82 - Altered mental status, unspecified (3) 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 We'll increase olanzapine to 5 mg a.m. 10 g at bedtime as patient continues to not engage and self-care secondary to psychosis. Patient will continue to be encouraged to participate in eating, maintenance of personal hygiene and engagement in her care. Recommendations as per primary medical team. Discharge planning in progress Justification for Cont. Inpt. At risk for further decompensation if at lower level of care Discharge Planning Patient to return to her residence or return to her mother residence on psychiatrically cleared Request HC Surrog/Guard Advoc?: Yes Heriberto Narayanan MD May 02, 2017 08:36
[2017-05-02] MEDS: NICOTINE 21 MG/24 HR PATCH T-DERMAL SCH (09:00)
[2017-05-02] MEDS: REMOVE OLD PATCH T-DERMAL SCH (09:00)
[2017-05-02] MEDS: OLANZapine 5 MG TAB PO SCH (09:00)
[2017-05-02] MEDS: SERTRALINE HCL 50 MG TAB PO SCH (09:00)
[2017-05-02] MEDS: OLANZapine IM 10 MG VIAL IM SCH ×2 (09:00→23:11)
--- NOTE | 2017-05-02 11:14 | HHI.PR ---
Subjective Remarks patient is not responding. clinically no change. agreed with IV fluid but refusing her po meds. no other acute issues over night. Objective Vitals Vital Signs Date Time Temp Pulse Resp B/P (MAP) Pulse Ox O2 Delivery O2 Flow Rate FiO2 05/02/17 06:02 97.8 72 16 127/85 (99) 05/01/17 18:02 83 17 120/69 (86) 96 I/O 05/01/17 05/01/17 05/01/17 05/02/17 05/02/17 05/02/17 07:00 15:00 23:00 07:00 15:00 23:00 Intake Total 753 ml 720 ml Balance 753 ml 720 ml Intake Oral 0 ml 720 ml IV Total 753 ml # Voids 1 1 1 # Bowel Movements 0 Result Diagram: 05/01/17 1111 05/01/17 1111 Imaging Current Medications Diphenhydramine HCl (Benadryl) 50 mg HS PRN PO INSOMNIA; Start 04/22/17 at 19: 30 Acetaminophen (Tylenol) 650 mg Q4H PRN PO Pain 1-5 or Temp >101F; Start at 19:30 Quetiapine Fumarate (SEROquel) 50 mg HS PO ; Start 04/22/17 at 21:00; Stop at 15:02; Status DC Flumazenil (Romazicon Inj) 0.2 mg Q1M PRN IV PUSH SEE LABEL COMMENTS; Start at 15:00 Lorazepam (Ativan) 1 mg Q4H PRN PO CIWA 8 - 10; Start 04/24/17 at 15:00 Lorazepam (Ativan Inj) 1 mg Q4H PRN IV PUSH CIWA 8 - 10 Last administered on t 02:13; Start 04/24/17 at 15:00 Lorazepam (Ativan) 2 mg Q2H PRN PO CIWA 11-14; Start 04/24/17 at 15:00 Lorazepam (Ativan Inj) 2 mg Q2H PRN IV PUSH CIWA 11-14; Start 04/24/17 at 15: 00 Lorazepam (Ativan Inj) 2 mg Q1H PRN IV PUSH CIWA 15-20; Start 04/24/17 at 15: 00 Lorazepam (Ativan Inj) 2 mg Q15M PRN IV PUSH CIWA > 20; Start 04/24/17 at 15: 00 Hydroxyzine HCl (Atarax) 25 mg Q8H PRN PO MODERATE TO SEVERE ANXIETY; Start at 15:00 Magnesium Hydroxide (Milk Of Magnesia Liq) 30 ml DAILY PRN PO CONSTIPATION; Start 04/24/17 at 15:00 Al Hydrox/Mg Hydrox/Simethicone (Mag-Al Plus Susp Liq) 30 ml Q6H PRN PO DYSPEPSIA; Start 04/24/17 at 15:00 Nicotine (Habitrol 21 Mg Patch.24 Hr) 1 patch DAILY T-DERMAL ; Start 04/24/17 at 15:00 Miscellaneous Information 1 DAILY T-DERMAL ; Start 04/25/17 at 09:00 Quetiapine Fumarate (SEROquel) 50 mg BID PO Last administered on 04/25/17 09: 07; Start 04/24/17 at 21:00; Stop 04/26/17 at 13:40; Status DC Sodium Chloride 1,000 ml @ 100 mls/hr Q10H IV Last administered on 04/25/17 05:00; Start 04/24/17 at 19:00; Stop 04/26/17 at 08:32; Status DC Sertraline HCl (Zoloft) 50 mg DAILY PO Last administered on 04/28/17 09:00; Start 04/25/17 at 09:15 Potassium Chloride 20 meq/ Sodium Chloride 1,010 ml @ 100 mls/hr Q10H6M IV ; Start 04/26/17 at 19:00; Stop 04/26/17 at 19:00; Status DC Potassium Chloride/Sodium Chloride 1,000 ml @ 100 mls/hr Q10H IV Last administered on 04/27/17 14:11; Start 04/26/17 at 08:45; Stop 04/30/17 at 10 :00; Status DC Olanzapine (ZyPREXA) 5 mg Q12HR PO Last administered on 04/28/17 09:00; Start 04/26/17 at 21:00; Stop 05/02/17 at 08:39; Status DC Olanzapine (ZyPREXA INJ) 5 mg Q12HR IM Last administered on 05/02/17 09:00; Start 04/26/17 at 21:00 Sodium Chloride 1,000 ml @ 100 mls/hr Q10H IV Last administered on 05/02/17 02:18; Start 04/30/17 at 10:00 Olanzapine (ZyPREXA) 5 mg DAILY PO ; Start 05/02/17 at 09:00 Olanzapine (ZyPREXA) 10 mg HS PO ; Start 05/02/17 at 21:00 Objective Remarks GENERAL: This is a well-nourished, well-developed patient, in no apparent distress. otherwise the patient refused the physical exam at this point. Medications and IVs Current Medications Diphenhydramine HCl (Benadryl) 50 mg HS PRN PO INSOMNIA; Start 04/22/17 at 19: 30 Acetaminophen (Tylenol) 650 mg Q4H PRN PO Pain 1-5 or Temp >101F; Start at 19:30 Quetiapine Fumarate (SEROquel) 50 mg HS PO ; Start 04/22/17 at 21:00; Stop at 15:02; Status DC Flumazenil (Romazicon Inj) 0.2 mg Q1M PRN IV PUSH SEE LABEL COMMENTS; Start at 15:00 Lorazepam (Ativan) 1 mg Q4H PRN PO CIWA 8 - 10; Start 04/24/17 at 15:00 Lorazepam (Ativan Inj) 1 mg Q4H PRN IV PUSH CIWA 8 - 10 Last administered on t 02:13; Start 04/24/17 at 15:00 Lorazepam (Ativan) 2 mg Q2H PRN PO CIWA 11-14; Start 04/24/17 at 15:00 Lorazepam (Ativan Inj) 2 mg Q2H PRN IV PUSH CIWA 11-14; Start 04/24/17 at 15: 00 Lorazepam (Ativan Inj) 2 mg Q1H PRN IV PUSH CIWA 15-20; Start 04/24/17 at 15: 00 Lorazepam (Ativan Inj) 2 mg Q15M PRN IV PUSH CIWA > 20; Start 04/24/17 at 15: 00 Hydroxyzine HCl (Atarax) 25 mg Q8H PRN PO MODERATE TO SEVERE ANXIETY; Start at 15:00 Magnesium Hydroxide (Milk Of Magnesia Liq) 30 ml DAILY PRN PO CONSTIPATION; Start 04/24/17 at 15:00 Al Hydrox/Mg Hydrox/Simethicone (Mag-Al Plus Susp Liq) 30 ml Q6H PRN PO DYSPEPSIA; Start 04/24/17 at 15:00 Nicotine (Habitrol 21 Mg Patch.24 Hr) 1 patch DAILY T-DERMAL ; Start 04/24/17 at 15:00 Miscellaneous Information 1 DAILY T-DERMAL ; Start 04/25/17 at 09:00 Quetiapine Fumarate (SEROquel) 50 mg BID PO Last administered on 04/25/17 09: 07; Start 04/24/17 at 21:00; Stop 04/26/17 at 13:40; Status DC Sodium Chloride 1,000 ml @ 100 mls/hr Q10H IV Last administered on 04/25/17 05:00; Start 04/24/17 at 19:00; Stop 04/26/17 at 08:32; Status DC Sertraline HCl (Zoloft) 50 mg DAILY PO Last administered on 04/28/17 09:00; Start 04/25/17 at 09:15 Potassium Chloride 20 meq/ Sodium Chloride 1,010 ml @ 100 mls/hr Q10H6M IV ; Start 04/26/17 at 19:00; Stop 04/26/17 at 19:00; Status DC Potassium Chloride/Sodium Chloride 1,000 ml @ 100 mls/hr Q10H IV Last administered on 04/27/17 14:11; Start 04/26/17 at 08:45; Stop 04/30/17 at 10 :00; Status DC Olanzapine (ZyPREXA) 5 mg Q12HR PO Last administered on 04/28/17 09:00; Start 04/26/17 at 21:00; Stop 05/02/17 at 08:39; Status DC Olanzapine (ZyPREXA INJ) 5 mg Q12HR IM Last administered on 05/02/17 09:00; Start 04/26/17 at 21:00 Sodium Chloride 1,000 ml @ 100 mls/hr Q10H IV Last administered on 05/02/17 02:18; Start 04/30/17 at 10:00 Olanzapine (ZyPREXA) 5 mg DAILY PO ; Start 05/02/17 at 09:00 Olanzapine (ZyPREXA) 10 mg HS PO ; Start 05/02/17 at 21:00 A/P Problem List: (1) History of hepatitis C ICD Code: Z86.19 - Personal history of other infectious and parasitic diseases Status: Chronic (2) HIV disease ICD Code: B20 - Human immunodeficiency virus [HIV] disease Status: Chronic (3) Leukocytosis ICD Code: D72.829 - Elevated white blood cell count, unspecified Status: Acute (4) Altered mental status ICD Code: R41.82 - Altered mental status, unspecified Assessment and Plan A/P psychosis- management per psych. poor oral intake- due to psychosis/paranoia; continue with IV fluid for now- monitor the electrolytes periodically. HIV/Hepatitis C - follow-up as outpatient. ID consult appreciated; antiretroviral will be resumed as outpatient. CD4 count 472. Leukocytosis-resolved, no signs of infection- Chronic renal failure- stable. mild hypokalemia; replaced. Mild AST elevation-improved. DVT prophylaxis: Low risk. Problem Qualifiers (1) Leukocytosis: Qualified Codes: D72.829 - Elevated white blood cell count, unspecified Humberto Pinto MD May 02, 2017 11:14
[2017-05-02 19:50] VITALS: BP 141/86; PULSE 80; RESP 18; O2SAT 99
[2017-05-02] MEDS: OLANZapine 10 MG TAB PO SCH (21:00)
[2017-05-03 05:00] VITALS: BP 147/91; PULSE 88; RESP 18; TEMP 97.3; O2SAT 97
[2017-05-03] MEDS: SERTRALINE HCL 50 MG TAB PO SCH (09:00)
[2017-05-03] MEDS: REMOVE OLD PATCH T-DERMAL SCH (09:00)
[2017-05-03] MEDS: OLANZapine 5 MG TAB PO SCH (09:00)
[2017-05-03] MEDS: NICOTINE 21 MG/24 HR PATCH T-DERMAL SCH (09:00)
[2017-05-03] MEDS: OLANZapine IM 10 MG VIAL IM SCH ×2 (09:46→22:44)
--- NOTE | 2017-05-03 10:03 | HHI.PR ---
Subjective Remarks in no acute distress. is more responsive today. had some breakfast today. d/w the RN and no acute issues over night. Objective Vitals Vital Signs Date Time Temp Pulse Resp B/P (MAP) Pulse Ox O2 Delivery O2 Flow Rate FiO2 05/03/17 05:00 97.3 88 18 147/91 (109) 97 05/02/17 19:50 80 18 141/86 (104) 99 I/O 05/02/17 05/02/17 05/02/17 05/03/17 05/03/17 05/03/17 07:00 15:00 23:00 07:00 15:00 23:00 Intake Total 120 ml 960 ml 240 ml Balance 120 ml 960 ml 240 ml Intake Oral 120 ml 960 ml 240 ml # Voids 1 3 Result Diagram: 05/01/17 1111 05/01/17 1111 Imaging Last Impressions Head CT 04/23/17 0000 Signed Impressions: Service Date/Time: Sunday, April 23, 2017 08:33 - CONCLUSION: Normal noncontrast head CT. Renato Dailey MD Objective Remarks GENERAL: This is a well-nourished, well-developed patient, in no apparent distress. otherwise the patient refused the physical exam at this point. Medications and IVs Current Medications Diphenhydramine HCl (Benadryl) 50 mg HS PRN PO INSOMNIA; Start 04/22/17 at 19: 30 Acetaminophen (Tylenol) 650 mg Q4H PRN PO Pain 1-5 or Temp >101F; Start at 19:30 Quetiapine Fumarate (SEROquel) 50 mg HS PO ; Start 04/22/17 at 21:00; Stop at 15:02; Status DC Flumazenil (Romazicon Inj) 0.2 mg Q1M PRN IV PUSH SEE LABEL COMMENTS; Start at 15:00 Lorazepam (Ativan) 1 mg Q4H PRN PO CIWA 8 - 10; Start 04/24/17 at 15:00 Lorazepam (Ativan Inj) 1 mg Q4H PRN IV PUSH CIWA 8 - 10 Last administered on t 02:13; Start 04/24/17 at 15:00 Lorazepam (Ativan) 2 mg Q2H PRN PO CIWA 11-14; Start 04/24/17 at 15:00 Lorazepam (Ativan Inj) 2 mg Q2H PRN IV PUSH CIWA 11-14; Start 04/24/17 at 15: 00 Lorazepam (Ativan Inj) 2 mg Q1H PRN IV PUSH CIWA 15-20; Start 04/24/17 at 15: 00 Lorazepam (Ativan Inj) 2 mg Q15M PRN IV PUSH CIWA > 20; Start 04/24/17 at 15: 00 Hydroxyzine HCl (Atarax) 25 mg Q8H PRN PO MODERATE TO SEVERE ANXIETY; Start at 15:00 Magnesium Hydroxide (Milk Of Magnesia Liq) 30 ml DAILY PRN PO CONSTIPATION; Start 04/24/17 at 15:00 Al Hydrox/Mg Hydrox/Simethicone (Mag-Al Plus Susp Liq) 30 ml Q6H PRN PO DYSPEPSIA; Start 04/24/17 at 15:00 Nicotine (Habitrol 21 Mg Patch.24 Hr) 1 patch DAILY T-DERMAL ; Start 04/24/17 at 15:00 Miscellaneous Information 1 DAILY T-DERMAL ; Start 04/25/17 at 09:00 Quetiapine Fumarate (SEROquel) 50 mg BID PO Last administered on 04/25/17 09: 07; Start 04/24/17 at 21:00; Stop 04/26/17 at 13:40; Status DC Sodium Chloride 1,000 ml @ 100 mls/hr Q10H IV Last administered on 04/25/17 05:00; Start 04/24/17 at 19:00; Stop 04/26/17 at 08:32; Status DC Sertraline HCl (Zoloft) 50 mg DAILY PO Last administered on 04/28/17 09:00; Start 04/25/17 at 09:15 Potassium Chloride 20 meq/ Sodium Chloride 1,010 ml @ 100 mls/hr Q10H6M IV ; Start 04/26/17 at 19:00; Stop 04/26/17 at 19:00; Status DC Potassium Chloride/Sodium Chloride 1,000 ml @ 100 mls/hr Q10H IV Last administered on 04/27/17 14:11; Start 04/26/17 at 08:45; Stop 04/30/17 at 10 :00; Status DC Olanzapine (ZyPREXA) 5 mg Q12HR PO Last administered on 04/28/17 09:00; Start 04/26/17 at 21:00; Stop 05/02/17 at 08:39; Status DC Olanzapine (ZyPREXA INJ) 5 mg Q12HR IM Last administered on 05/03/17 09:46; Start 04/26/17 at 21:00 Sodium Chloride 1,000 ml @ 100 mls/hr Q10H IV Last administered on 05/02/17 23:14; Start 04/30/17 at 10:00 Olanzapine (ZyPREXA) 5 mg DAILY PO ; Start 05/02/17 at 09:00 Olanzapine (ZyPREXA) 10 mg HS PO ; Start 05/02/17 at 21:00 A/P Problem List: (1) History of hepatitis C ICD Code: Z86.19 - Personal history of other infectious and parasitic diseases Status: Chronic (2) HIV disease ICD Code: B20 - Human immunodeficiency virus [HIV] disease Status: Chronic (3) Leukocytosis ICD Code: D72.829 - Elevated white blood cell count, unspecified Status: Acute (4) Altered mental status ICD Code: R41.82 - Altered mental status, unspecified Assessment and Plan A/P psychosis- management per psych. poor oral intake- due to psychosis/paranoia; continue with IV fluid for now- monitor the electrolytes periodically. seems to be improving. HIV/Hepatitis C - follow-up as outpatient. ID consult appreciated; antiretroviral will be resumed as outpatient. CD4 count 472. Leukocytosis-resolved, no signs of infection- Chronic renal failure- stable. mild hypokalemia; replaced. Mild AST elevation-improved. DVT prophylaxis: Low risk. Problem Qualifiers (1) Leukocytosis: Qualified Codes: D72.829 - Elevated white blood cell count, unspecified Humberto Pinto MD May 03, 2017 10:03
--- NOTE | 2017-05-03 10:33 | PD.TTN ---
Patient Problems 1. Discharge planning 2. Medication compliance 3. Knowledge deficit 4. Lack of coping skills Progress Toward Goals Provider Present: Dr. Sol Narayanan Provider Input: 05/01/2017 Per treating doctor, patient is refusing treatment, care, has not maintained any hygiene, not eating and has had significant weight loss due to the same. Will order labs today. Per doctor he will obtain consent from healthcare surrogate, and will continue current treatment with an increase antipsychotic after medically stable. 05/03 Patient continues to deny eating and drinking. Patient is recieving meds through IM injection. patient was told that she is being referred to ECT. Nurse(s) Present: QUIANA Lawrence Nurse(s) Input: 05/01/2017 Per nurse, patient has been minimally interactive with staff. Patient is isolating and keeps her blanket completely covering her head. Patient is not eating or taking her medication Psychiatric Counselors Present: CLEMENCIA Pina Psych Therapist Input: 05/01/2017 Patient is encouraged with meals, medication and group/activities Patient will assess with patient treatment goals and plans Group Spec/RT/OT/VARGAS Present: Jack Cuenca OT Group Spec/RT/OT/VARGAS Input: 05/01/2017; per OT patient is encouraged with activities; however she is refusing Patient will assess with patient treatment goals and plans Documentation Scribe: CLEMENCIA Pina Talia [facility] May 03, 2017 10:33
[2017-05-03] MEDS: SODIUM CHLOR 0.9% 1000 ML INJ 1,000 ML IV SCH ×2 (10:49→17:30)
--- NOTE | 2017-05-03 11:15 | HHI.PYPN ---
Subjective Chief Complaint: patient unresponsive flaccid Remarks Patient seen for follow-up, chart reviewed. Discussion with nursing staff reported that patient continues to refuse to eat, refusing by mouth medications as well as allowing for IV hydration and IM administration of medications. Patient found lying in hospital bed with covers over her head but allowed for covers to be removed from her face there was noted to have her eyes closed during interview but noted to be alert. Patient refused to interact with science writer but patient was explained the concern for her recent weight loss due to her inadequate intake of nutrition as well as hydration which she was notified that a consult was placed with the medical team for consideration of PEG tube for the same. Patient is also advised that there will be a referral made for ECT due to limited response to treatment. Patient did not mention anywhere but was able to sit up. Patient went encouraged to start eating and drinking as well as take treatment for stabilization patient simply nodded her head. Review of Systems Except as stated in HPI: all other systems reviewed are Neg Mental Status Examination Appearance: Disheveled, Malodorous Consciousness: Alert Orientation: Person Motor Activity: Normal gait Speech: Unremarkable Language: Other (refusing to speak) Fund of Knowledge: Inadequate Attention and Concentration: Inadequate Memory: Impaired Mood: Irritable Affect: Irritable, Other (dismissive) Thought Process & Associations: Other (concrete) Thought Content: Preoccupations (perseverative on taking only Wellbutrin) Hallucination Type: None (unable to assess this patient's refusing to cooperate interview) Delusion Type: None (unable to assess this patient's refusing to cooperate interview) Suicidal Ideation: No Suicidal Plan: No Suicidal Intention: No Homicidal Ideation: No Homicidal Plan: No Homicidal Intention: No Insight: Poor Judgment: Poor Results Vitals/IOs Vital Signs Date Time Temp Pulse Resp B/P (MAP) Pulse Ox O2 Delivery O2 Flow Rate FiO2 05/03/17 05:00 97.3 88 18 147/91 (109) 97 Intake and Output 05/03/17 05/03/17 05/04/17 08:00 16:00 00:00 Intake Total 480 ml 1000 ml Balance 480 ml 1000 ml Assessment & Plan Problem List: (1) Unspecified psychosis ICD Codes: F29 - Unspecified psychosis not due to a substance or known physiological condition (2) Altered mental status ICD Codes: R41.82 - Altered mental status, unspecified (3) 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 After discussion with possible treatment options patient was able to engage nonverbally into conversation which she set up and nodded, presuming the patient agreed with plan of her participating more in her nutrition and treatment. We'll continue encouraging for now as patient appears to be agreeable to start cooperating and participating in care. Application for electroconvulsive treatment will be started in the case which patient continues to refuse care of self. Continue recommendations as per primary medical team. Discharge planning in progress Justification for Cont. Inpt. At risk for further decompensation if at lower level of care Discharge Planning Patient to discharge back to her residence or to her mother's residence once psychiatrically cleared Request HC Surrog/Guard Advoc?: Yes Heriberto Narayanan MD May 03, 2017 11:15
[2017-05-03 17:55] VITALS: BP 150/91; PULSE 87; RESP 16; O2SAT 99
[2017-05-03] MEDS: OLANZapine 10 MG TAB PO SCH (21:00)
[2017-05-04] MEDS: SODIUM CHLOR 0.9% 1000 ML INJ 1,000 ML IV SCH (03:40)
[2017-05-04 06:12] VITALS: BP 125/81; PULSE 100; RESP 16; TEMP 97.7; O2SAT 97
[2017-05-04] MEDS: OLANZapine 5 MG TAB PO SCH ×2 (09:00→11:56)
[2017-05-04] MEDS: REMOVE OLD PATCH T-DERMAL SCH (09:00)
[2017-05-04] MEDS: OLANZapine IM 10 MG VIAL IM SCH ×2 (09:00→21:00)
[2017-05-04] MEDS: NICOTINE 21 MG/24 HR PATCH T-DERMAL SCH (09:00)
[2017-05-04] MEDS: SERTRALINE HCL 50 MG TAB PO SCH ×2 (09:00→11:56)
--- NOTE | 2017-05-04 12:02 | HHI.PR ---
Subjective Remarks in no acute distress. is more cooperative today. now eating and drinking . d/w the RN and no acute issues over night. Objective Vitals Vital Signs Date Time Temp Pulse Resp B/P (MAP) Pulse Ox O2 Delivery O2 Flow Rate FiO2 05/04/17 06:12 97.7 100 16 125/81 (96) 97 05/03/17 17:55 87 16 150/91 (110) 99 I/O 05/03/17 05/03/17 05/03/17 05/04/17 05/04/17 05/04/17 07:00 15:00 23:00 07:00 15:00 23:00 Intake Total 960 ml 1480 ml 1454 ml 240 ml Balance 960 ml 1480 ml 1454 ml 240 ml Intake Oral 960 ml 480 ml 960 ml 240 ml IV Total 1000 ml 494 ml # Voids 3 4 1 Result Diagram: 05/01/17 1111 05/01/17 1111 Imaging Last Impressions Head CT 04/23/17 0000 Signed Impressions: Service Date/Time: Sunday, April 23, 2017 08:33 - CONCLUSION: Normal noncontrast head CT. Renato Dailey MD Objective Remarks GENERAL: This is a well-nourished, well-developed patient, in no apparent distress. otherwise the patient refused the physical exam at this point. Medications and IVs Current Medications Diphenhydramine HCl (Benadryl) 50 mg HS PRN PO INSOMNIA; Start 04/22/17 at 19: 30 Acetaminophen (Tylenol) 650 mg Q4H PRN PO Pain 1-5 or Temp >101F; Start at 19:30 Quetiapine Fumarate (SEROquel) 50 mg HS PO ; Start 04/22/17 at 21:00; Stop at 15:02; Status DC Flumazenil (Romazicon Inj) 0.2 mg Q1M PRN IV PUSH SEE LABEL COMMENTS; Start at 15:00 Lorazepam (Ativan) 1 mg Q4H PRN PO CIWA 8 - 10; Start 04/24/17 at 15:00 Lorazepam (Ativan Inj) 1 mg Q4H PRN IV PUSH CIWA 8 - 10 Last administered on t 02:13; Start 04/24/17 at 15:00 Lorazepam (Ativan) 2 mg Q2H PRN PO CIWA 11-14; Start 04/24/17 at 15:00 Lorazepam (Ativan Inj) 2 mg Q2H PRN IV PUSH CIWA 11-14; Start 04/24/17 at 15: 00 Lorazepam (Ativan Inj) 2 mg Q1H PRN IV PUSH CIWA 15-20; Start 04/24/17 at 15: 00 Lorazepam (Ativan Inj) 2 mg Q15M PRN IV PUSH CIWA > 20; Start 04/24/17 at 15: 00 Hydroxyzine HCl (Atarax) 25 mg Q8H PRN PO MODERATE TO SEVERE ANXIETY; Start at 15:00 Magnesium Hydroxide (Milk Of Magnesia Liq) 30 ml DAILY PRN PO CONSTIPATION; Start 04/24/17 at 15:00 Al Hydrox/Mg Hydrox/Simethicone (Mag-Al Plus Susp Liq) 30 ml Q6H PRN PO DYSPEPSIA; Start 04/24/17 at 15:00 Nicotine (Habitrol 21 Mg Patch.24 Hr) 1 patch DAILY T-DERMAL ; Start 04/24/17 at 15:00 Miscellaneous Information 1 DAILY T-DERMAL ; Start 04/25/17 at 09:00 Quetiapine Fumarate (SEROquel) 50 mg BID PO Last administered on 04/25/17 09: 07; Start 04/24/17 at 21:00; Stop 04/26/17 at 13:40; Status DC Sodium Chloride 1,000 ml @ 100 mls/hr Q10H IV Last administered on 04/25/17 05:00; Start 04/24/17 at 19:00; Stop 04/26/17 at 08:32; Status DC Sertraline HCl (Zoloft) 50 mg DAILY PO Last administered on 05/04/17 11:56; Start 04/25/17 at 09:15 Potassium Chloride 20 meq/ Sodium Chloride 1,010 ml @ 100 mls/hr Q10H6M IV ; Start 04/26/17 at 19:00; Stop 04/26/17 at 19:00; Status DC Potassium Chloride/Sodium Chloride 1,000 ml @ 100 mls/hr Q10H IV Last administered on 04/27/17 14:11; Start 04/26/17 at 08:45; Stop 04/30/17 at 10 :00; Status DC Olanzapine (ZyPREXA) 5 mg Q12HR PO Last administered on 04/28/17 09:00; Start 04/26/17 at 21:00; Stop 05/02/17 at 08:39; Status DC Olanzapine (ZyPREXA INJ) 5 mg Q12HR IM Last administered on 05/04/17 09:00; Start 04/26/17 at 21:00 Sodium Chloride 1,000 ml @ 100 mls/hr Q10H IV Last administered on 05/03/17 10:49; Start 04/30/17 at 10:00 Olanzapine (ZyPREXA) 5 mg DAILY PO Last administered on 05/04/17 11:56; Start 05/02/17 at 09:00 Olanzapine (ZyPREXA) 10 mg HS PO ; Start 05/02/17 at 21:00 A/P Problem List: (1) History of hepatitis C ICD Code: Z86.19 - Personal history of other infectious and parasitic diseases Status: Chronic (2) HIV disease ICD Code: B20 - Human immunodeficiency virus [HIV] disease Status: Chronic (3) Leukocytosis ICD Code: D72.829 - Elevated white blood cell count, unspecified Status: Acute (4) Altered mental status ICD Code: R41.82 - Altered mental status, unspecified Assessment and Plan A/P psychosis- management per psych. poor oral intake- due to psychosis/paranoia;now has much improved. will stop IV fluid. HIV/Hepatitis C - follow-up as outpatient. ID consult appreciated; antiretroviral will be resumed as outpatient. CD4 count 472. Leukocytosis-resolved, no signs of infection- Chronic renal failure- stable. mild hypokalemia; replaced. Mild AST elevation-improved. DVT prophylaxis: Low risk. Discharge Planning medically stable and ok for transfer out of the med-psych unit. Problem Qualifiers (1) Leukocytosis: Qualified Codes: D72.829 - Elevated white blood cell count, unspecified Humberto Pinto MD May 04, 2017 12:02
--- NOTE | 2017-05-04 12:11 | HHI.PYPN ---
Subjective Chief Complaint: patient unresponsive flaccid Remarks Patient seen for follow-up, chart review. Patient seen for follow-up with report writer, therapist, occupational therapist. Patient was found sitting on hospital bed awake and alert with good eye contact and engage in interview today. Patient states that she continues to feel "confused", noted to be very concrete and thought process and has having difficulty following conversation. Patient is alert and oriented 3 but states that she has been feeling "foggy". Patient noted to have difficulty understanding interpreting information that was provided to her in regards to her apartment and of her mother attempting to contact her. Patient acknowledges by nodding her head of the importance of her cooperating her care at eating and drinking on her own as well as taking medications by mouth which she also reluctantly agreed to. Patient states that she would like to go home but was unable to express what her plan is upon discharge. Patient was encouraged to maintain personal hygiene which she states did not want to take a shower as well as encouraged to resume in groups and activities which she agreed to. Review of Systems Except as stated in HPI: all other systems reviewed are Neg Mental Status Examination Appearance: Disheveled, Malodorous Consciousness: Alert Orientation: Person Motor Activity: Normal gait Speech: Unremarkable Language: Other (refusing to speak) Fund of Knowledge: Inadequate Attention and Concentration: Inadequate Memory: Impaired Mood: Irritable Affect: Blunt, Other Thought Process & Associations: Other (concrete) Thought Content: Thought blocking, Preoccupations (perseverative on taking her belongings at her apartment and discharge) Hallucination Type: None (unable to assess this patient's refusing to cooperate interview) Delusion Type: None (unable to assess this patient's refusing to cooperate interview) Suicidal Ideation: No Suicidal Plan: No Suicidal Intention: No Homicidal Ideation: No Homicidal Plan: No Homicidal Intention: No Insight: Poor Judgment: Poor Results Vitals/IOs Vital Signs Date Time Temp Pulse Resp B/P (MAP) Pulse Ox O2 Delivery O2 Flow Rate FiO2 05/04/17 06:12 97.7 100 16 125/81 (96) 97 Intake and Output 05/04/17 05/04/17 05/05/17 08:00 16:00 00:00 Intake Total 240 ml Balance 240 ml Assessment & Plan Problem List: (1) Unspecified psychosis ICD Codes: F29 - Unspecified psychosis not due to a substance or known physiological condition (2) Altered mental status ICD Codes: R41.82 - Altered mental status, unspecified (3) 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 Patient agreeing to participate more in her care but still noted to be confused and somewhat disorganized. Patient agreed to start taking by mouth medications as well as to increase nutritional and fluid intake. We'll continue current treatment for now as patient will now start taking medications by mouth. Continue to encourage patient to maintain personal hygiene as well as nutritional intake and hydration. Continue to monitor mood and behavior. Petition for electric convulsive therapy started, second opinion requested, as patient has not been responding to treatment as well as not been participating in her care recently. Discharge planning in progress Justification for Cont. Inpt. At risk for further decompensation if at lower level of care Discharge Planning Patient to be discharged back to residence or mother's residence once psychiatrically stable Request HC Surrog/Guard Advoc?: Yes Heriberto Narayanan MD May 04, 2017 12:11
--- NOTE | 2017-05-04 13:13 | PD.PSY.CON ---
Provisional Diagnosis Admission Date Apr 22, 2017 at 19:31 [place] I. Unspecified psychosis F 29, Altered mental status r 41.82, dissociative few due to stress reaction f 44.1, generalized anxiety disorder F 41.1 History of Present Illness Service Psychiatry Consult Requested By Dr. Narayanan Reason for Consult Referral for ECT Primary Care Physician No Primary Care Physician HPI Patient is a 52-year-old white female who initially came voluntary basis to the ED on 04/22/17 with visit [id number] it appears first anxious homeless and somewhat confused. She had a small dog with her. Though was consideration of admitting this patient. She claimed her dog was her service dog however those proved to be unfounded. Patient wished to be discharged AMA to be with her and well. At that time nurse practitioner assessed patient felt that she did not meet criteria for involuntary psychiatric hospitalization and she was loud to leave AMA. A few hours later it appears the police found lady wandering in the community somewhat confused. The [employer] confiscate the patient's pet dog [employer] in a long term. Patient is again screened in the ED and admitted on a voluntary basis to the unit last night. Patient was ambulatory though somewhat confused and anxious. It appears she did not receive any medication. However this morning prior to my arrival patient was found to be obtunded in her bed responding very infrequently only to deep pain stimulus. A halicat was called. Patient is seen by that team. Blood gases, labs, vital signs, overall within acceptable limits. Noncontrast CT of the skull was done which was also negative. At the present time patient remains flaccidly unresponsive. There are no signs of waxy flexibility or posturing noted. She is still significantly unresponsive to deep pain stimulus. It is 70 feel patient does not have capacity to remain on a voluntary basis on the psychiatric unit I will do a first opinion request second opinion I approached does not have capacity at this time thus I'll ask for healthcare surrogate and guardian advocate. Patient will be transferred to [facility] for close observation and assessment. We' ll have the hospitalist some coarse continue the observation of her also. I question whether this may be some type of a fugue reaction or hysterical reaction. Leave further close observation and assessment in conjunction with the medical team 04/24/17: Second opinion Patient is a 52-year-old woman, homeless, unemployed, with unclear past psychiatric history but as per chart. Past psychiatric diagnosis of anxiety disorder, no previous psychiatric hospitalization unknown if previous suicide attempt or self-injurious behavior, has previous outpatient mental provider, Dr. Anne, with previous medication trials of Klonopin, quetiapine, Adderall with a past medical history of HIV, hep C, hyperlipidemia was transferred to the inpatient psychiatry unit for further evaluation and management due to concern of patient's ability to care for self and possible psychosis due to recent mental status changes. As per ED note patient had a recent argument with someone at the apartment complex where she states cannot return back there and has been homeless for the past couple of days which is affected her sleep as well as patient reported trying to "we myself off" of her psychiatric medications. Patient also was found to have elevated white count which may be contributing factor to possibly underlying medical cause. Patient was found lying in hospital bed with covers over her head and see with nurse and hospitalist as patient was refusing to interact and engage in interview today. Patient continued to stay multiple times "get away from me, I don't want to talk to you, get out". Patient was found with covers over her head but was able to allow for treatment team to see her face but patient's eyes were closed and refused to have eye contact. Nurse later reported that she was able to engage in some conversation with patient which patient stated that she was previously on clonazepam in the past, was not able to return back to her residence due to a "bad situation". 05/04/2017: Patient was seen today for an evaluation of a second opinion for ECT. Chart was extensively review. Case was discussed personally with Dr. Narayanan. The patient is a 52-year-old woman, self reported homeless, unemployed, , with past psychiatric history of anxiety and psychosis, hospitalizations, with medical history of HIV, hepatitis C, who has been treated in [place] for psychosis. Since patient has been reluctant to take PO medications, she is in injectable last up in 5 mg twice a day. On psychiatric evaluation today is very distant, the beginning of refusing to answer any questions, oppositional, with marked poverty of speech and blocking thought. With reassurance patient was able to say that she is here because she has been hearing voices and having nightmares. The patient does not elaborate about the content of her auditory hallucinations. During my evaluation I noted that the patient had her lunch on untouched overdosing table. She denies suicidal and homicidal ideation, she denies visual and auditory hallucinations. She is oriented 3 at this moment.. Review of Systems Psychiatric: COMPLAINS OF: Confusion, Delusions Past Family Social History Coded Allergies: No Known Allergies (Verified Allergy, Unknown, 04/22/17) Reported Medications Quetiapine (Seroquel) 50 Mg Tab, 50 MG PO HS, #30 TAB 0 Refills 04/22/17 Clonazepam (Clonazepam) 2 Mg Tab, 2 MG PO BID, #60 TAB 0 Refills 04/22/17 Current Medications Medications (Trade) Dose Ordered Sig/Blanca Route Start Time Stop Time Status Last Admin (Benadryl) 50 mg HS PRN PO 04/22/17 19:30 (Tylenol) 650 mg Q4H PRN PO 04/22/17 19:30 (Romazicon Inj) 0.2 mg Q1M PRN IV PUSH 04/24/17 15:00 (Ativan) 1 mg Q4H PRN PO 04/24/17 15:00 (Ativan Inj) 1 mg Q4H PRN IV PUSH 04/24/17 15:00 04/25/17 02:13 (Ativan) 2 mg Q2H PRN PO 04/24/17 15:00 (Ativan Inj) 2 mg Q2H PRN IV PUSH 04/24/17 15:00 (Ativan Inj) 2 mg Q1H PRN IV PUSH 04/24/17 15:00 (Ativan Inj) 2 mg Q15M PRN IV PUSH 04/24/17 15:00 (Atarax) 25 mg Q8H PRN PO 04/24/17 15:00 (Milk Of Magnesia Liq) 30 ml DAILY PRN PO 04/24/17 15:00 (Mag-Al Plus Susp Liq) 30 ml Q6H PRN PO 04/24/17 15:00 (Habitrol 21 Mg Patch.24 Hr) 1 patch DAILY T-DERMAL 04/24/17 15:00 Miscellaneous Information 1 DAILY T-DERMAL 04/25/17 09:00 (Zoloft) 50 mg DAILY PO 04/25/17 09:15 05/04/17 11:56 (ZyPREXA INJ) 5 mg Q12HR IM 04/26/17 21:00 05/04/17 09:00 (ZyPREXA) 5 mg DAILY PO 05/02/17 09:00 05/04/17 11:56 (ZyPREXA) 10 mg HS PO 05/02/17 21:00 Social History Patient was born and raised in [place], she is homeless, , she has no kids, her highest level of education is 10th grade Patient's Strengths (min. 2) Patient able to access health care Physical Exam Vital Signs Vital Signs Date Time Temp Pulse Resp B/P (MAP) Pulse Ox O2 Delivery O2 Flow Rate FiO2 05/04/17 06:12 97.7 100 16 125/81 (96) 97 I/O 05/04/17 05/04/17 05/05/17 08:00 16:00 00:00 Intake Total 240 ml 240 ml Balance 240 ml 240 ml Mental Status Examination Appearance: Disheveled, Malodorous Consciousness: Alert Orientation: Person Motor Activity: Normal gait Speech: Unremarkable Language: Other (refusing to speak) Fund of Knowledge: Inadequate Attention and Concentration: Inadequate Memory: Impaired Mood: Oppositional, Irritable Affect: Flat, Other (dismissive) Thought Process & Associations: Other (concrete) Thought Content: Preoccupations (perseverative on taking only Wellbutrin) Hallucination Type: None (unable to assess this patient's refusing to cooperate interview) Delusion Type: None (unable to assess this patient's refusing to cooperate interview) Suicidal Ideation: No Suicidal Plan: No Suicidal Intention: No Homicidal Ideation: No Homicidal Plan: No Homicidal Intention: No Insight: Poor Judgment: Poor Assessment & Plan Problem List: (1) Unspecified psychosis ICD Codes: F29 - Unspecified psychosis not due to a substance or known physiological condition Assessment & Plan: The patient was seen today for evaluation of a second opinion of ECT treatment. I was reviewed. Case was personally discussed with Dr. Narayanan. Since the patient has been presenting persistent psychotic symptoms , prominent clocking thought, poverty of speech and mutism, generalized negativism the point that the patient has been refusing to take her medication and refusing to eat putting her life in danger. I totally agree and concur with Dr. Narayanan plan of presenting the patient for ECT treatment. Consult appreciated. 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
[2017-05-04 18:18] VITALS: BP 140/90; PULSE 90; RESP 17; TEMP 98.1; O2SAT 99
[2017-05-04] MEDS: OLANZapine 10 MG TAB PO SCH (21:00)
[2017-05-05 06:14] VITALS: BP 125/78; PULSE 97; RESP 16; TEMP 96.8; O2SAT 96
--- NOTE | 2017-05-05 08:49 | HHI.PR ---
Subjective Remarks No acute events overnight. Afebrile, vital signs stable. In no acute distress. Cooperative with the exam. Has completed her entire breakfast. Objective Vital Signs Date Time Temp Pulse Resp B/P (MAP) Pulse Ox O2 Delivery O2 Flow Rate FiO2 05/05/17 06:14 96.8 97 16 125/78 (94) 96 05/04/17 18:18 98.1 90 17 140/90 (107) 99 I/O 05/04/17 05/04/17 05/04/17 05/05/17 05/05/17 05/05/17 07:00 15:00 23:00 07:00 15:00 23:00 Intake Total 240 ml 480 ml 1560 ml 0 ml Balance 240 ml 480 ml 1560 ml 0 ml Intake Oral 240 ml 480 ml 1560 ml 0 ml # Voids 1 2 1 Result Diagram: 05/01/17 1111 05/01/17 1111 Objective Remarks Gen.: No acute distress Head: Normocephalic. Atraumatic. EENT: Pupils equal round and reactive to light. Nose without drainage. Airway intact. Throat without injection. Cardiovascular: Regular rate and rhythm. No murmurs, rubs or gallops. Respiratory: Lungs clear to auscultation bilaterally. No wheezes or rhonchi. Abdomen: Soft, nontender, nondistended. No peritoneal signs. Musculoskeletal: No gross deformities. No edema. Skin: No obvious rashes or erythema. Neuro: Sensory and motor grossly intact. Cranial nerves II through XII grossly intact. A/P Problem List: (1) HIV disease ICD Code: B20 - Human immunodeficiency virus [HIV] disease Status: Chronic (2) History of hepatitis C ICD Code: Z86.19 - Personal history of other infectious and parasitic diseases Status: Chronic (3) Medical clearance for psychiatric admission ICD Code: Z00.8 - Encounter for other general examination Status: Acute Assessment and Plan psychosis- management per psych. poor oral intake- due to psychosis/paranoia; now has much improved. HIV/Hepatitis C - follow-up as outpatient. ID consult appreciated; antiretroviral will be resumed as outpatient. CD4 count 472. Leukocytosis-resolved, no signs of infection, recheck CBC in am Chronic renal failure- stable. mild hypokalemia; replaced. Mild AST elevation-improved. DVT prophylaxis: Low risk. Repeat labs in am Discharge Planning medically stable and ok for transfer out of the med-psych unit. Dominique Wilhelm MD May 05, 2017 08:49
[2017-05-05] MEDS: OLANZapine IM 10 MG VIAL IM SCH ×2 (09:00→21:00)
[2017-05-05] MEDS: REMOVE OLD PATCH T-DERMAL SCH (09:00)
[2017-05-05] MEDS: NICOTINE 21 MG/24 HR PATCH T-DERMAL SCH (09:00)
[2017-05-05] MEDS: SERTRALINE HCL 50 MG TAB PO SCH (09:17)
[2017-05-05] MEDS: OLANZapine 5 MG TAB PO SCH (09:17)
[2017-05-05] MEDS ORDERED: OLANZapine 10 MG TAB PO ONE (10:15)
--- NOTE | 2017-05-05 12:20 | HHI.PYPN ---
Subjective Chief Complaint: patient unresponsive flaccid Remarks Patient seen for follow-up, chart reviewed. Discussion with the she staff reported the patient has been taking medications by mouth reluctantly, slept well, so was seen speaking with mother over the phone, and went to groups activities yesterday. Patient was found sitting in hospital bed was able sit up and interact with typewriter aligner and nurse. Patient states that she is feeling paranoid, stating that she does not trust her nurse. She mentions that when she was brought her medications she was not allowed to be able to see the packet before she they were tried to be administered to her. Patient agrees to continue eating more, hydrating herself more but continues to refuse to maintain personal hygiene at this time. Patient encouraged to continue groups and activities. Patient readily agreed to take by mouth meds today but was able to take them. Patient denies any perceptual disturbances, denies SI or HI. Review of Systems Except as stated in HPI: all other systems reviewed are Neg Mental Status Examination Appearance: Disheveled, Malodorous Consciousness: Alert Orientation: Person Motor Activity: Normal gait Speech: Unremarkable Language: Other (refusing to speak) Fund of Knowledge: Inadequate Attention and Concentration: Inadequate Memory: Impaired Mood: Oppositional, Irritable Affect: Blunt, Other Thought Process & Associations: Linear, Other (concrete) Thought Content: Thought blocking, Preoccupations ( medications) Hallucination Type: None (unable to assess this patient's refusing to cooperate interview) Delusion Type: Paranoid Suicidal Ideation: No Suicidal Plan: No Suicidal Intention: No Homicidal Ideation: No Homicidal Plan: No Homicidal Intention: No Insight: Poor Judgment: Poor Results Vitals/IOs Vital Signs Date Time Temp Pulse Resp B/P (MAP) Pulse Ox O2 Delivery O2 Flow Rate FiO2 05/05/17 06:14 96.8 97 16 125/78 (94) 96 Intake and Output 05/05/17 05/05/17 05/06/17 08:00 16:00 00:00 Intake Total 240 ml Balance 240 ml Assessment & Plan Problem List: (1) Unspecified psychosis ICD Codes: F29 - Unspecified psychosis not due to a substance or known physiological condition (2) Altered mental status ICD Codes: R41.82 - Altered mental status, unspecified (3) 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 Patient is reluctantly accepting by mouth meds but is taking, and continues to refuse maintenance of personal hygiene. We 'll increase olanzapine atenolol grams by mouth twice a day, continue sertraline 50 mg by mouth daily. Continue recognitions as per primary medical team. Continue the encourage patient to maintain personal hygienic participate in groups and activities. Continue to encourage patient to increase by mouth intake and fluids. Discharge planning in progress Justification for Cont. Inpt. At risk for further decompensation if at lower level of care Discharge Planning Patient to return back to her residence once psychiatrically cleared Request HC Surrog/Guard Advoc?: Yes Heriberto Narayanan MD May 05, 2017 12:20
[2017-05-05 18:00] VITALS: BP 127/77; PULSE 80; RESP 18; TEMP 97.9; O2SAT 98
[2017-05-05] MEDS: OLANZapine 10 MG TAB PO SCH (21:00)
[2017-05-06] MEDS: OLANZapine 10 MG TAB PO SCH ×2 (08:07→21:04)
[2017-05-06] MEDS: SERTRALINE HCL 50 MG TAB PO SCH (08:07)
[2017-05-06] MEDS: REMOVE OLD PATCH T-DERMAL SCH (08:09)
[2017-05-06] MEDS: OLANZapine IM 10 MG VIAL IM SCH ×2 (08:09→21:00)
[2017-05-06] MEDS: NICOTINE 21 MG/24 HR PATCH T-DERMAL SCH (08:09)
--- NOTE | 2017-05-06 17:38 | HHI.PYPN ---
Subjective Chief Complaint: patient unresponsive flaccid Remarks Pt seen and discussed with staff. She has been eating/drinking and has been more cooperative today. She remains paranoid, especially about medications ( fears tampering). She refused vital signs and labs today. She continues to refuse to speak to mother. Mental Status Examination Appearance: Disheveled, Malodorous Consciousness: Alert Orientation: Person Motor Activity: Normal gait Speech: Unremarkable Language: Other (refusing to speak) Fund of Knowledge: Inadequate Attention and Concentration: Inadequate Memory: Impaired Mood: Oppositional, Irritable Affect: Blunt, Other Thought Process & Associations: Linear, Other (concrete) Thought Content: Thought blocking, Delusional Hallucination Type: None (unable to assess this patient's refusing to cooperate interview) Delusion Type: Paranoid Suicidal Ideation: No Suicidal Plan: No Suicidal Intention: No Homicidal Ideation: No Homicidal Plan: No Homicidal Intention: No Insight: Poor Judgment: Poor Results Vitals/IOs Vital Signs Date Time Temp Pulse Resp B/P (MAP) Pulse Ox O2 Delivery O2 Flow Rate FiO2 05/05/17 18:00 97.9 80 18 127/77 (94) 98 Intake and Output 05/06/17 05/06/17 05/07/17 08:00 16:00 00:00 Intake Total 240 ml 240 ml Balance 240 ml 240 ml Assessment & Plan Problem List: (1) Unspecified psychosis ICD Codes: F29 - Unspecified psychosis not due to a substance or known physiological condition (2) Altered mental status ICD Codes: R41.82 - Altered mental status, unspecified (3) 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 Estimated LOS: days Justification for Cont. Inpt. psychosis Request HC Surrog/Guard Advoc?: Yes Nell Gastelum MD May 06, 2017 17:38
[2017-05-06 18:00] VITALS: BP 116/71; PULSE 80; RESP 17; TEMP 97.6; O2SAT 97
[2017-05-06 19:36] LABS: AUTOMATED NEUTROPHIL # 6.4 TH/MM3 (1.8-7.7); BASOPHIL # 0.1 TH/MM3 (0-0.2); BASOPHIL % 0.6 % (0.0-2.0); EOSINOPHIL # 0.2 TH/MM3 (0-0.4); EOSINOPHIL % 2.6 % (0.0-4.0); HEMATOCRIT 38.7 % (35.0-46.0); HEMO FLAGS DIFF FINAL; LYMPH % 18.4 % (9.0-44.0); LYMPHOCYTE # 1.7 TH/MM3 (1.0-4.8); MEAN CELL VOLUME 100.1 FL (80.0-100.0); MEAN CORPUSCULAR HEMOGLOBIN 34.3 PG (27.0-34.0); MEAN CORPUSCULAR HGB CONC 34.3 % (32.0-36.0); MONO % 8.3 % (0.0-8.0); NEUT % 70.1 % (16.0-70.0); PLATELET COUNT 305 TH/MM3 (150-450); RED BLOOD COUNT 3.86 MIL/MM3 (4.00-5.30); RED CELL DISTRIBUTION WIDTH 11.6 % (11.6-17.2); WHITE BLOOD COUNT 9.2 TH/MM3 (4.0-11.0)
[2017-05-06 19:55] LABS: BICARBONATE 31.7 MEQ/L (21.0-32.0); POTASSIUM 3.9 MEQ/L (3.5-5.1)
[2017-05-06 19:58] LABS: INDIRECT BILIRUBIN 0.1 MG/DL (0.0-0.8); TOTAL BILIRUBIN ADULT 0.2 MG/DL (0.2-1.0)
[2017-05-07 06:22] VITALS: BP 138/99; PULSE 93; RESP 18; TEMP 97.7; O2SAT 98
[2017-05-07] MEDS: REMOVE OLD PATCH T-DERMAL SCH (09:00)
[2017-05-07] MEDS: OLANZapine IM 10 MG VIAL IM SCH (09:00)
[2017-05-07] MEDS: NICOTINE 21 MG/24 HR PATCH T-DERMAL SCH (09:00)
[2017-05-07] MEDS: OLANZapine 10 MG TAB PO SCH ×2 (10:05→20:33)
[2017-05-07] MEDS: SERTRALINE HCL 50 MG TAB PO SCH (10:05)
[2017-05-07 17:20] VITALS: BP 151/86; PULSE 88; RESP 17; TEMP 97.9; O2SAT 99
--- NOTE | 2017-05-07 19:29 | HHI.PYPN ---
Subjective Remarks Pt seen and discussed with staff. Pt remains paranoid and disorganized, but has been compliant with medications and has not been agitated. No SI/HI. Mental Status Examination Appearance: Disheveled, Malodorous Consciousness: Alert Orientation: Person Motor Activity: Normal gait Speech: Unremarkable Language: Other (refusing to speak) Fund of Knowledge: Inadequate Attention and Concentration: Inadequate Memory: Impaired Mood: Oppositional, Irritable Affect: Blunt, Other Thought Process & Associations: Linear, Other (concrete) Thought Content: Thought blocking, Delusional Hallucination Type: None (unable to assess this patient's refusing to cooperate interview) Delusion Type: Paranoid Suicidal Ideation: No Suicidal Plan: No Suicidal Intention: No Homicidal Ideation: No Homicidal Plan: No Homicidal Intention: No Insight: Poor Judgment: Poor Results Vitals/IOs Vital Signs Date Time Temp Pulse Resp B/P (MAP) Pulse Ox O2 Delivery O2 Flow Rate FiO2 05/07/17 17:20 97.9 88 17 151/86 (107) 99 Intake and Output 05/07/17 05/07/17 05/08/17 08:00 16:00 00:00 Intake Total 480 ml 240 ml Balance 480 ml 240 ml Assessment & Plan Problem List: (1) Unspecified psychosis ICD Codes: F29 - Unspecified psychosis not due to a substance or known physiological condition (2) Altered mental status ICD Codes: R41.82 - Altered mental status, unspecified (3) 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 Estimated LOS: days Justification for Cont. Inpt. impairments in reality testing Request HC Surrog/Guard Advoc?: Yes Nell Gastelum MD May 07, 2017 19:29
[2017-05-08 06:28] VITALS: BP 122/77; PULSE 84; RESP 17; TEMP 98.5; O2SAT 98
[2017-05-08] MEDS: OLANZapine 10 MG TAB PO SCH ×2 (08:03→22:05)
[2017-05-08] MEDS: SERTRALINE HCL 50 MG TAB PO SCH (08:03)
[2017-05-08] MEDS: NICOTINE 21 MG/24 HR PATCH T-DERMAL SCH (08:03)
[2017-05-08] MEDS: REMOVE OLD PATCH T-DERMAL SCH (08:03)
[2017-05-08] MEDS: OLANZapine IM 10 MG VIAL IM SCH ×2 (08:09→21:00)
--- NOTE | 2017-05-08 13:01 | HHI.PYPN ---
Subjective Remarks Patient seen for follow-up, chart reviewed. Discussion she staff reported that patient continues to be paranoid with her medications but is taking them by mouth and noted to be eating more of her meals. Patient found lying in hospital bed, cooperative noted to be hypervigilant during interview. Patient states that she is feeling "good" but that she is feeling depressed and states that her depression is 10 out of 10 (10 being at its worst); denies suicide ideations. She reports eating more but continues report having some difficulty with concentration, "my mind feels cloudy". She states that she is contemplating of going back to her apartment but is considering returning back to her mother whom she states has not spoken to her about discharge plan. She inquires about her pet dog. Patient denies any auditory hallucinations but did admit to having auditory hallucinations prior to her hospitalization. She states that she does not trust certain people in the hospital he continues to endorse paranoid delusions. She continues refused to use shower states used to sing to washout period she requests to have change in hospital pajawas and ask if there are closed taken be provided to her. She denies SI, HI or perceptual disturbances at this time. Review of Systems Except as stated in HPI: all other systems reviewed are Neg Mental Status Examination Appearance: Disheveled, Malodorous Consciousness: Alert Orientation: Person Motor Activity: Normal gait Speech: Unremarkable Language: Other (refusing to speak) Fund of Knowledge: Inadequate Attention and Concentration: Inadequate Memory: Impaired Mood: Irritable (less so today) Affect: Blunt, Other (guarded) Thought Process & Associations: Linear, Other (concrete) Thought Content: Thought blocking (less so today), Delusional Hallucination Type: None (unable to assess this patient's refusing to cooperate interview) Delusion Type: Paranoid Suicidal Ideation: No Suicidal Plan: No Suicidal Intention: No Homicidal Ideation: No Homicidal Plan: No Homicidal Intention: No Insight: Poor Judgment: Poor Results Vitals/IOs Vital Signs Date Time Temp Pulse Resp B/P (MAP) Pulse Ox O2 Delivery O2 Flow Rate FiO2 05/08/17 06:28 98.5 84 17 122/77 (92) 98 Intake and Output 05/08/17 05/08/17 05/09/17 08:00 16:00 00:00 Intake Total 480 ml Balance 480 ml Assessment & Plan Problem List: (1) Unspecified psychosis ICD Codes: F29 - Unspecified psychosis not due to a substance or known physiological condition (2) Altered mental status ICD Codes: R41.82 - Altered mental status, unspecified (3) 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 We'll continue olanzapine 10 mg by mouth twice a day, increase sertraline to 100 mg by mouth daily for depression. Continue to encourage patient to maintain personal hygiene is patient continues to refuse to use shower but states that she washes up in the sink. Continue to encourage patient to continue participation in groups and activities. Collateral fresh benefit from other as patient at this time is considering returning back to her mother post discharge. Discharge planning in progress Justification for Cont. Inpt. At risk for further decompensation if at lower level of care Discharge Planning A she at this time agrees to consider to be discharged back to her mother once psychiatrically stable. Request HC Surrog/Guard Advoc?: Yes Heriberto Narayanan MD May 08, 2017 13:01
[2017-05-08 18:00] VITALS: BP 148/78; PULSE 79; RESP 18; TEMP 97.7; O2SAT 98
[2017-05-09 06:06] VITALS: BP 137/77; PULSE 64; RESP 16; TEMP 97.9; O2SAT 98
[2017-05-09] MEDS: NICOTINE 21 MG/24 HR PATCH T-DERMAL SCH (08:34)
[2017-05-09] MEDS: OLANZapine 10 MG TAB PO SCH (08:34)
[2017-05-09] MEDS: REMOVE OLD PATCH T-DERMAL SCH (08:35)
[2017-05-09] MEDS: OLANZapine IM 10 MG VIAL IM SCH (08:49)
[2017-05-09] MEDS ORDERED: SERTRALINE HCL 50 MG TAB PO SCH (09:00)
--- NOTE | 2017-05-09 09:07 | HHI.PYPN ---
Subjective Remarks Patient seen for follow-up, chart reviewed. Discussion with nursing staff reported patient continues to take medication by mouth, continues to refuse showers but is washing up in the sink and continues with paranoia Patient found sitting in a breakfast, able to interact with interview with quality analyst/technical writer and nurse. Patient states that she has been feeling "good", reports having spoken to her mother and states that she plans on visiting her mother sometime soon but he really after discharge plans to returning back to her apartment. She states that she is willing to focus on herself and will later worry about her pet that was in a long-term. She encouraged to shower today which she agreed. She reports not having social support here locally stating that she usually is someone that keeps to herself. She mentions planning on continuing outpatient follow-up with Dr. Anne her outpatient psychiatrist. Patient at this time denies any perceptual disturbances but continue have some paranoia appears to be less today. Review of Systems Except as stated in HPI: all other systems reviewed are Neg Mental Status Examination Appearance: Disheveled, Malodorous Consciousness: Alert Orientation: Person Motor Activity: Normal gait Speech: Unremarkable Language: Adequate Fund of Knowledge: Inadequate Attention and Concentration: Inadequate Memory: Impaired Mood: Appropriate Affect: Blunt (slightly more reactive today), Other (less guarded today) Thought Process & Associations: Linear, Other (concrete) Thought Content: Delusional Hallucination Type: None (unable to assess this patient's refusing to cooperate interview) Delusion Type: Paranoid (less so today) Suicidal Ideation: No Suicidal Plan: No Suicidal Intention: No Homicidal Ideation: No Homicidal Plan: No Homicidal Intention: No Insight: Poor Judgment: Poor Results Vitals/IOs Vital Signs Date Time Temp Pulse Resp B/P (MAP) Pulse Ox O2 Delivery O2 Flow Rate FiO2 05/09/17 06:06 97.9 64 16 137/77 (97) 98 Intake and Output 05/09/17 05/09/17 05/09/17 07:59 15:59 23:59 Intake Total 0 ml Balance 0 ml Assessment & Plan Problem List: (1) Unspecified psychosis ICD Codes: F29 - Unspecified psychosis not due to a substance or known physiological condition (2) Altered mental status ICD Codes: R41.82 - Altered mental status, unspecified (3) 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 Patient has been resistant to the using the shower for maintenance of hygiene but today agreed. Patient to continue current treatment regimen. We will obtain collateral information from mother to assess how close patient is back to baseline. Patient to be discharged back to her apartment as well as with outpatient follow-up. Patient continues to be improving. Discharge planning in progress Justification for Cont. Inpt. At risk for further decompensation if at lower level of care Request HC Surrog/Guard Advoc?: Yes Heriberto Narayanan MD May 09, 2017 09:07
--- NOTE | 2017-05-09 09:45 | PD.TTN ---
Patient Problems 1. Discharge planning 2. Medication compliance 3. Knowledge deficit 4. Lack of coping skills Progress Toward Goals Provider Present: Dr. Sol Narayanan Provider Input: 05-08-17 - Dr. narayanan reported the patient is eating more and taking her medications. She remains paranoid and psychotic. 05/01/2017 Per treating doctor, patient is refusing treatment, care, has not maintained any hygiene, not eating and has had significant weight loss due to the same. Will order labs today. Per doctor he will obtain consent from healthcare surrogate, and will continue current treatment with an increase antipsychotic after medically stable. 05/03 Patient continues to deny eating and drinking. Patient is recieving meds through IM injection. patient was told that she is being referred to ECT. Nurse(s) Present: QUIANA Lawrence Nurse(s) Input: 05/01/2017 Per nurse, patient has been minimally interactive with staff. Patient is isolating and keeps her blanket completely covering her head. Patient is not eating or taking her medication Psychiatric Counselors Present: Huong Gallegos [facility], LINDSAY MonroeRohan Psych Therapist Input: 05-08-17 - Patient remains paranoid and is refusing to shower. She did speak to her mother on the phone today. 05/01/2017 Patient is encouraged with meals, medication and group/activities Patient will assess with patient treatment goals and plans Group Spec/RT/OT/VARGAS Present: SAM Davis Andrew Harrison, OT Group Spec/RT/OT/VARGAS Input: 05-08-17 - Attends select groups. Will continue to encourage participation. 05/01/2017; per OT patient is encouraged with activities; however she is refusing Patient will assess with patient treatment goals and plans Documentation Scribe: PAUL Monroe Date Resolved: May 08, 2017 Suzie Phillips May 09, 2017 09:45
[2017-05-09] MEDS ORDERED: OLAN10TA PO (12:02)
[2017-05-09] MEDS ORDERED: SERT-129 PO (12:02)
--- NOTE | 2017-05-09 12:02 | HHI.DS ---
Psychiatry Discharge Summary Inpatient Psychiatric care?: Yes Advance Directive: No Reason Not Provided: patient declined Mental Health AdvanceDirective: No (patient declined) Name and Number: patient declined Health Care Proxy: No (patient declined) Name and Phone Number: patient declined Admission Admission Date Apr 22, 2017 at 19:31 Admission Diagnosis: (1) Unspecified psychosis ICD Code: F29 - Unspecified psychosis not due to a substance or known physiological condition Brief History Patient is a 52-year-old white female who initially came voluntary basis to the ED on 04/22/17 with visit [id number] it appears first anxious homeless and somewhat confused. She had a small dog with her. Though was consideration of admitting this patient. She claimed her dog was her service dog however those proved to be unfounded. Patient wished to be discharged AMA to be with her and well. At that time nurse practitioner assessed patient felt that she did not meet criteria for involuntary psychiatric hospitalization and she was loud to leave AMA. A few hours later it appears the police found lady wandering in the community somewhat confused. The [employer] confiscate the patient's pet dog [employer] in a detention. Patient is again screened in the ED and admitted on a voluntary basis to the unit last night. Patient was ambulatory though somewhat confused and anxious. It appears she did not receive any medication. However this morning prior to my arrival patient was found to be obtunded in her bed responding very infrequently only to deep pain stimulus. A halicat was called. Patient is seen by that team. Blood gases, labs, vital signs, overall within acceptable limits. Noncontrast CT of the skull was done which was also negative. At the present time patient remains flaccidly unresponsive. There are no signs of waxy flexibility or posturing noted. She is still significantly unresponsive to deep pain stimulus. It is 70 feel patient does not have capacity to remain on a voluntary basis on the psychiatric unit I will do a first opinion request second opinion I approached does not have capacity at this time thus I'll ask for healthcare surrogate and guardian advocate. Patient will be transferred to [facility] for close observation and assessment. We' ll have the hospitalist some coarse continue the observation of her also. I question whether this may be some type of a fugue reaction or hysterical reaction. Leave further close observation and assessment in conjunction with the medical team 11/20/17: Second opinion Patient is a 52-year-old woman, homeless, unemployed, with unclear past psychiatric history but as per chart. Past psychiatric diagnosis of anxiety disorder, no previous psychiatric hospitalization unknown if previous suicide attempt or self-injurious behavior, has previous outpatient mental provider, Dr. Anne, with previous medication trials of Klonopin, quetiapine, Adderall with a past medical history of HIV, hep C, hyperlipidemia was transferred to the inpatient psychiatry unit for further evaluation and management due to concern of patient's ability to care for self and possible psychosis due to recent mental status changes. As per ED note patient had a recent argument with someone at the apartment complex where she states cannot return back there and has been homeless for the past couple of days which is affected her sleep as well as patient reported trying to "we myself off" of her psychiatric medications. Patient also was found to have elevated white count which may be contributing factor to possibly underlying medical cause. Patient was found lying in hospital bed with covers over her head and see with nurse and hospitalist as patient was refusing to interact and engage in interview today. Patient continued to stay multiple times "get away from me, I don't want to talk to you, get out". Patient was found with covers over her head but was able to allow for treatment team to see her face but patient's eyes were closed and refused to have eye contact. Nurse later reported that she was able to engage in some conversation with patient which patient stated that she was previously on clonazepam in the past, was not able to return back to her residence due to a "bad situation". 05/04/2017: Patient was seen today for an evaluation of a second opinion for ECT. Chart was extensively review. Case was discussed personally with Dr. Narayanan. The patient is a 52-year-old woman, self reported homeless, unemployed, , with past psychiatric history of anxiety and psychosis, hospitalizations, with medical history of HIV, hepatitis C, who has been treated in [place] for psychosis. Since patient has been reluctant to take PO medications, she is in injectable last up in 5 mg twice a day. On psychiatric evaluation today is very distant, the beginning of refusing to answer any questions, oppositional, with marked poverty of speech and blocking thought. With reassurance patient was able to say that she is here because she has been hearing voices and having nightmares. The patient does not elaborate about the content of her auditory hallucinations. During my evaluation I noted that the patient had her lunch on untouched overdosing table. She denies suicidal and homicidal ideation, she denies visual and auditory hallucinations. She is oriented 3 at this moment.. Tobacco Use In Past 30 Days: No Tobacco Past 30 Days Alcohol Use: Monthly or Less Hospital Course Patient is a 52-year-old woman, homeless, unemployed, with unclear past psychiatric history but as per chart, prior psychiatric diagnosis of anxiety disorder, previous psychiatric hospitalization as per mothers collateral, unknown if previous suicide attempt or self-injurious behavior, history of noncompliance with treatment, has previous outpatient mental provider , Dr. Anne, with previous medication trials of Klonopin, quetiapine, Adderall with a past medical history of HIV, hep C, hyperlipidemia was transferred to the inpatient psychiatry unit for further evaluation and management due to concern of patient's ability to care for self and possible psychosis due to recent mental status changes. Patient was started on quetiapine 50mg PO BID and sertraline 50mg PO daily which patient refused initially and refused to interact with evaluations and had refused to participate in care, treatment as well as PO intake of food or fluids. Patient went on for several days of not eating or drinking, refusing to communicate with staff or participate in care which concerns of patients well- being were in question. Patient presented to mental health court where she was retained for treatment and began to receive olanzapine 5mg IM BID if refused PO which she continued to receive for some time. Patient had required IV fluids due to poor PO intake and had medical team consulted for possible PEG tube as patient had lost close to 20lbs as well as consideration of referral to ECT if patient did not begin to respond to treatment. Patient later began to respond to treatment, began with increased PO intake which she no longer required IV fluids and slowly began to engage in interview. Patient had olanzapine titrated up to 10mg PO BID and continued on sertraline up to 100mg PO daily. Patient noted to be somewhat paranoid with staff but continued to improve in insight and judgement. Patient agreed to visit mother after discharge but was wanting to return back to her apartment first. Patient did not endorse suicidal ideation nor homicidal ideations. Patient maintained fair mood, was goal-directed and hopeful to continue to improve. Patient agreed to continue medication regimen and outpatient follow up for continuity of care with Dr. Lee. Patient advised to call 911 or go nearest ED in case of emergency. Patient agrees with plan. Results Blood Pressure 137 / 77 Vital Signs Date Time Temp Pulse Resp B/P (MAP) Pulse Ox O2 Delivery O2 Flow Rate FiO2 05/09/17 06:06 97.9 64 16 137/77 (97) 98 Laboratory Tests Test 05/06/17 18:45 Red Blood Count 3.86 MIL/MM3 (4.00-5.30) Mean Corpuscular Volume 100.1 FL (80.0-100.0) Mean Corpuscular Hemoglobin 34.3 PG (27.0-34.0) Neutrophils (%) (Auto) 70.1 % (16.0-70.0) Monocytes (%) (Auto) 8.3 % (0.0-8.0) Blood Urea Nitrogen 22 MG/DL (7-18) Creatinine 1.28 MG/DL (0.50-1.00) Albumin 3.2 GM/DL (3.4-5.0) Aspartate Amino Transf (AST/SGOT) 13 U/L (15-37) Estimat Glomerular Filtration Rate 44 ML/MIN (>89) Total Creatine Kinase 22 U/L (26-192) Laboratory Results Test 04/25/17 06:37 04/28/17 04:14 Hemoglobin A1c 4.8 % (4.3-6.0) Cholesterol Level 243 MG/DL (120-200) HDL Cholesterol 52.4 MG/DL (40.0-60.0) LDL Cholesterol 166 MG/DL (0-99) Triglycerides Level 123 MG/DL (42-150) Summary of Procedures none Imaging Last Impressions Head CT 04/23/17 0000 Signed Impressions: Service Date/Time: Sunday, April 23, 2017 08:33 - CONCLUSION: Normal noncontrast head CT. Renato Dailey MD Pending results at discharge: No Medications # of Antipsychotic meds at D/C: 1 Approp Antipsych med options 1 - Minimum of three failed multiple trials of monotherapy. 2 - Documented plan to taper to monotherapy due to previous use of multiple meds OR cross-taper in progress at D/C. 3 - Documentation of augmentation of Clozapine. 4 - Justification other than those listed in allowable values 1-3, document here : Discharge Discharge Date: May 09, 2017 Discharge Diagnosis: (1) Unspecified psychosis ICD Code: F29 - Unspecified psychosis not due to a substance or known physiological condition Pt Condition on Discharge: Stable Discharge Disposition: Disch w/ Home Health Serv Discharge Instructions Diet Instructions: Heart Healthy Diet Activities you can perform: Regular-No Restrictions Scheduled Appointment: Dr. Dennis Lee Appointment Date: May 11, 2017 Discharge Time > 30 minutes Mental Status Examination Appearance: Disheveled, Malodorous Consciousness: Alert Orientation: Person Motor Activity: Normal gait Speech: Unremarkable Language: Adequate Fund of Knowledge: Inadequate Attention and Concentration: Inadequate Memory: Impaired Mood: Appropriate Affect: Appropriate Thought Process & Associations: Linear, Other (concrete) Thought Content: Appropriate Hallucination Type: None (unable to assess this patient's refusing to cooperate interview) Delusion Type: None Suicidal Ideation: No Suicidal Plan: No Suicidal Intention: No Homicidal Ideation: No Homicidal Plan: No Homicidal Intention: No Insight: Fair Judgment: Impulsive Discharge/Advance Care Plan Health Problems: (1) Unspecified psychosis (2) Altered mental status (3) 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 Heriberto Narayanan at Smoking is Dangerous to Your Health. Avoid second hand smoking Heriberto Narayanan MD May 09, 2017 12:02
== END 2017-05-09 14:55 | disposition home health service (06) | DRG 885 ==
LOC: NEPJ 17:22 → NEDA 19:31 → H260 22:58 → H4EA 04-23 09:45
PROVIDERS: ADMIT Student in an Organized Health Care Education/Training Program; ATTEND Student in an Organized Health Care Education/Training Program
DX: F29 Unspecified psychosis not due to a substance or known physiological condition (principal); R45.851 Suicidal ideations; F44.1 Dissociative fugue; F41.1 Generalized anxiety disorder; B19.20 Unspecified viral hepatitis C without hepatic coma; R42 Dizziness and giddiness; R40.0 Somnolence; G43.909 Migraine, unspecified, not intractable, without status migrainosus; D72.829 Elevated white blood cell count, unspecified; I12.9 Hypertensive chronic kidney disease with stage 1 through stage 4 chronic kidney disease, or unspecified chronic kidney disease; N18.9 Chronic kidney disease, unspecified; Z21 Asymptomatic human immunodeficiency virus [HIV] infection status; E87.6 Hypokalemia; R32 Unspecified urinary incontinence; F43.9 Reaction to severe stress, unspecified; E78.5 Hyperlipidemia, unspecified; Z91.19 Patient's noncompliance with other medical treatment and regimen
CPT/HCPCS: 36600; 70450; 80048; 80053; 80061; 80076; 80307; 81001; 82550; 82805; 83036; 84443; 85025; 86355; 86357; 86359; 86360; 93005; J2060; J3480; J7030